=== PATIENT | female | born 1970 | race Caucasian/White ===

== ENCOUNTER 2021-06-27 11:42 | Emergency (ER) | payer OTHER, SELFPAY ==
[2021-06-27 11:57] VITALS: BP 123/70; PULSE 55; RESP 17; TEMP 36.9; O2SAT 97; BMI 34.0
--- NOTE | 2021-06-27 12:35 | XRR_ITS ---
PROCEDURE INFORMATION: Exam: XR Chest Exam date and time: 06/27/2021 12:35 PM Age: 51 years old Clinical indication: Cough and fever; Additional info: Cough, fever TECHNIQUE: Imaging protocol: XR of the chest. Views: 1 view. COMPARISON: CR Chest 1 [place] [id number] 05/27/2018 8:45 PM FINDINGS: Lungs: Unremarkable. No consolidation. Pleural spaces: Unremarkable. No pleural effusion. No pneumothorax. Heart/Mediastinum: Unremarkable. No cardiomegaly. Bones/joints: Metallic sternotomy wires are in place. XR/XR chest 1V portable [id number] IMPRESSION: 1. No acute findings. 2. Status post sternotomy
--- NOTE | 2021-06-27 12:38 | W.ED.COVID ---
HPI - COVID General: Chief Complaint: COVID symptoms Stated Complaint: N/V, UNABLE TASTE Time Seen by Provider: 06/27/21 11:52 Source: patient and RN notes reviewed Mode of arrival: ambulatory Limitations: no limitations Triage information: No fever, cough or shortness of breath. No known COVID + exposure last 14 days History of Present Illness: HPI Narrative: This 51-year-old female presents to the emergency department with complaints of feeling unwell for about 2 to 3 days. She has had a low-grade fever, nausea but no vomiting. Reduced sense of taste. She said she had a sudden onset swelling on the right side of her abdomen that started about 2 days ago also. She said it felt like something popped and the swelling came up. It is painful. She does not have a history of hernia. MD complaint: has COVID symptoms Prior covid testing: no COVID 19 common symptoms: positive fever(s), chills, cough, fatigue, body aches, loss of sense of smell and/or taste and nausea; negative dyspnea, headache(s), throat pain, nasal congestion, vomiting, diarrhea or chest tightness COVID 19 other sytmptoms: negative chest pressure, chest pain, pleuritic pain, requiring oxygen, requiring more oxygen, respiratory distress, cyanosis, lethargy, confusion, new neurological complaints or other concerning symptoms Onset (ago): day(s) (3) Severity: mild COVID Results: SARS-CoV-2 Antigen (Rapid) Negative (Negative) 06/27/21 13:05 06/27/21 Nasal/Oral Coronavirus 2019 PCR Pending 06/27/21 13:05 06/27/21 Review of Systems General: Reports: 10 or more systems reviewed and unremarkable except in HPI and below Const: Reports: fever(s), chills, body aches and fatigue ENMT: Denies: throat pain or nasal congestion Card: Denies: chest pain Resp: Denies: dyspnea GI: Reports: nausea; Denies: vomiting or diarrhea Neuro: Denies: headache(s) or confusion Physical Exam Const: COMMON NORMALS: no acute distress, average body habitus, patient oriented x3, no limitations, healthy appearing, alert and well nourished HENMT: COMMON NORMALS: normocephalic, atraumatic and moist oral mucous membranes HEAD & SCALP: normocephalic and atraumatic Eye: COMMON NORMALS: Equal, round and reactive pupils present, EOMs intact bilaterally, conjunctivae normal and no scleral icterus CONJUNCTIVA: Yes conjunctivae normal PUPIL: Yes Equal, round and reactive pupils present Neck/C-Spine: COMMON NORMALS: no meningeal signs and no JVD Resp: COMMON NORMALS: normal respiratory effort, No retractions, No use of accessory muscles, clear to auscultation bilaterally and percussion normal AUSCULTATION: clear to auscultation bilaterally PERCUSSION: percussion normal Cardio: COMMON NORMALS: no JVD, regular rate, regular rhythm, S1 normal heart sound present, S2 normal heart sound present, No gallops present (Cardio), No clicks present (Cardio), No murmurs present (Cardio), No rub (Cardio) and Peripheral pulses 2+ throughout RATE: regular rate RHYTHM: regular rhythm HEART SOUNDS: S1 normal heart sound present and S2 normal heart sound present PERIPHERAL PULSES: Peripheral pulses 2+ throughout GI: COMMON NORMALS: Normal to inspection, nondistended, normoactive bowel sounds present, Soft to palpation, non-tender, No hepatosplenomegaly present, no masses and no bruits PALPATION: Yes Soft to palpation, Yes No hepatosplenomegaly present and Yes Hernia present (8 cm swelling lateral to her rectus on the right) : EXTERNAL FEMALE EXAM: Yes Hernia present (8 cm swelling lateral to her rectus on the right) Neuro: COMMON NORMALS: patient oriented x3 SENSORIUM/ORIENTATION: Yes alert MENINGEAL SIGNS: Yes no meningeal signs Skin: COMMON NORMALS: no rashes or lesions noted, no wounds, turgor normal, no jaundice, no petechiae and no mottling GENERAL SKIN EXAM: no rashes or lesions noted and turgor normal Course Reevaluation(s): Reevaluation #1: Discussed her lab and imaging findings with her. Negative for acute findings. We will discharge her home with no new orders. Rapid Covid negative, PCR test is pending. She will be contacted with the results of the PCR test. She voiced understanding and is in agreement with the plan. Time: 14:12 Vital Signs: Vital signs: Vital Signs Temperature 98.5 F 06/27/21 11:57 Pulse Rate 55 L 06/27/21 11:57 Respiratory Rate 17 06/27/21 11:57 Blood Pressure 123/70 06/27/21 11:57 Pulse Oximetry 97 06/27/21 13:14 MDM - COVID MDM Narrative: Medical decision making narrative: 51-year-old female patient who presents to the emergency department with nausea vomiting and unable to taste. She also complains of abdominal pain. Evaluation in the emergency department is unremarkable. Rapid Covid test was negative. PCR test is pending. She is discharged home and is advised to quarantine until she gets her Covid results or until 10 days from symptom onset. Medical Records: Attestation: I reviewed the patient's medical records. Lab Data: Attestation: I reviewed the patient's lab results. Labs: Lab Results 06/27/21 06/27/21 06/27/21 Range/Units 13:05 13:05 13:05 WBC 5.6 (4.0-10.0) 10^3/ uL RBC 3.88 L (4.1-5.3) 10^6/u L Hgb 11.8 (11.5-15.3) g/dL Hct 37.5 (37.0-47.0) % MCV 96.6 (81-99) fl MCH 30.4 (28.0-34.0) pg MCHC 31.5 (30.0-36.0) g/dL RDW 14.5 (12.1-15.1) % Plt Count 201 (130-400) 10^3/c mm MPV 11.5 H (7.4-10.4) fL Neut % (Auto) 71.7 % Lymph % (Auto) 20.2 % [place] % (Auto) 5.7 % Eos % (Auto) 1.6 % Baso % (Auto) 0.4 % Neut # (Auto) 4.04 (1.8-7.7) 10^3/u L Lymph # (Auto) 1.1 (0.8-4.8) 10^3/u L [place] # (Auto) 0.3 (0.2-0.9) 10^3/u L Eos # (Auto) 0.1 (0.0-0.8) 10^3/u L Baso # (Auto) 0.0 (0.0-0.1) 10^3/u L Nucleated RBC % (a uto) 0 % Nucleated RBCs # 0.0 /100WBC Sodium 140 (136-145) mmol/L Potassium 4.2 (3.5-5.1) mmol/L Chloride 108 H (98-107) mmol/L Carbon Dioxide 26 (22-29) mmol/L Anion Gap 10.2 (5-19) BUN 13 (6-20) mg/dL Creatinine 0.7 (0.5-0.9) mg/dL GFR Calculation 87.9 L (90-130) mL/min Glucose 103 (65-115) mg/dL Calculated Osmolal ity 290 (285-295) mOsm/k g Lactic Acid 0.7 (0.5-2.2) mmol/L Calcium 8.5 (8.5-10.5) mg/dL Total Bilirubin 0.5 (0.15-1.2) mg/dL AST 18 (0-32) U/L ALT 12 (0-33) U/L Alkaline Phosphata se 74 (35-105) IU/L C-Reactive Protein 30.3 H (0.0-4.9) mg/L Total Protein 6.6 (6.6-8.7) g/dL Albumin 3.6 (3.5-5.2) g/dL Globulin 3.0 (1.3-4.6) g/dL SARS-CoV-2 Ag (Rap id) (Negative) 06/27/21 Range/Units 13:05 WBC (4.0-10.0) 10^3/ uL RBC (4.1-5.3) 10^6/u L Hgb (11.5-15.3) g/dL Hct (37.0-47.0) % MCV (81-99) fl MCH (28.0-34.0) pg MCHC (30.0-36.0) g/dL RDW (12.1-15.1) % Plt Count (130-400) 10^3/c mm MPV (7.4-10.4) fL Neut % (Auto) % Lymph % (Auto) % [place] % (Auto) % Eos % (Auto) % Baso % (Auto) % Neut # (Auto) (1.8-7.7) 10^3/u L Lymph # (Auto) (0.8-4.8) 10^3/u L [place] # (Auto) (0.2-0.9) 10^3/u L Eos # (Auto) (0.0-0.8) 10^3/u L Baso # (Auto) (0.0-0.1) 10^3/u L Nucleated RBC % (a uto) % Nucleated RBCs # /100WBC Sodium (136-145) mmol/L Potassium (3.5-5.1) mmol/L Chloride (98-107) mmol/L Carbon Dioxide (22-29) mmol/L Anion Gap (5-19) BUN (6-20) mg/dL Creatinine (0.5-0.9) mg/dL GFR Calculation (90-130) mL/min Glucose (65-115) mg/dL Calculated Osmolal ity (285-295) mOsm/k g Lactic Acid (0.5-2.2) mmol/L Calcium (8.5-10.5) mg/dL Total Bilirubin (0.15-1.2) mg/dL AST (0-32) U/L ALT (0-33) U/L Alkaline Phosphata se (35-105) IU/L C-Reactive Protein (0.0-4.9) mg/L Total Protein (6.6-8.7) g/dL Albumin (3.5-5.2) g/dL Globulin (1.3-4.6) g/dL SARS-CoV-2 Ag (Rap id) Negative (Negative) Imaging Data: CT Abd/Pel: Attestation: I personally reviewed and interpreted this imaging study as follows: Radiologist's impression: [address] [id number] Scan ReportSigned Patient: Francis Araya #: [id number]: 1970Acct#:[id number]/Sex: 51 / FADM Date: 06/27/21Loc: ERRoom/Bed:Attending Dr: Ordering Provider/Ordering MD: Rachana [place] [facility] of Service: 06/27/21 Procedure(s): CT abdomen pelvis w con* [id number] Accession Number(s): [id number] Report Number: [id number] PROCEDURE INFORMATION: Exam: CT Abdomen And Pelvis With Contrast Exam date and time: 06/27/2021 12:37 PM Age: 51 years old Clinical indication: Other: Right abdominal swelling; Prior surgery TECHNIQUE: Imaging protocol: Computed tomography of the abdomen and pelvis with contrast. Radiation optimization: All CT scans at this facility use at least one of these dose optimization techniques: automated exposure control; mA and/or kV adjustment per patient size (includes targeted exams where dose is matched to clinical indication); or iterative reconstruction. Contrast material: OMNI 300; Contrast volume: 95 ml; Contrast route: INTRAVENOUS (IV); COMPARISON: CT Chest/Abdomen/Pelvis w IV* 05/27/2018 7:58 PM RADIATION DOSE METRICS: Total DLP (mGy-cm): 1683.41 FINDINGS: Liver: Normal. No mass. There is hepatomegaly the liver span is 18 cm Gallbladder and bile ducts: Cholecystectomy Pancreas: Normal. No ductal dilation. Spleen: Normal. No splenomegaly. Adrenal glands: Normal. No mass. 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 Stomach and bowel: Descending and sigmoid colon diverticulosis without diverticulitis. Appendix: No evidence of appendicitis. Appendix: No evidence of appendicitis. Intraperitoneal space: Unremarkable. No free air. No significant fluid collection. Vasculature: Unremarkable. No abdominal aortic aneurysm. Lymph nodes: Unremarkable. No enlarged lymph nodes. Urinary bladder: Unremarkable as visualized. Reproductive: Unremarkable as visualized. 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 Soft tissues: Unremarkable. CT/CT abdomen pelvis w con* [id number] IMPRESSION: 1. No acute findings. 2. Hepatomegaly. 3. Cholecystectomy 4. Descending and sigmoid diverticulosis 5. Left renal angiomyolipoma a cardio Radiation Dose CTDIVOL = (mGy): DLP = 1683.41 (mGy-cm) Dictated By:Juancho Fu By:Juancho Fu Date/Time:06/27/21 1409DD/ 06 CXR: Attestation: I personally reviewed and interpreted this imaging study as follows: Radiologist's impression: [address] [id number] ReportSigned Patient: Francis Araya #: [id number]: 1970Acct#:[id number]/Sex: 51 / FADM Date: 06/27/21Loc: ERRoom/Bed:Attending Dr: Ordering Provider/Ordering MD: Rachana Re[place], [facility] [place] of Service: 06/27/21 Procedure(s): XR chest 1V portable [id number] Accession Number(s): [id number] Report Number: [id number] PROCEDURE INFORMATION: Exam: XR Chest Exam date and time: 06/27/2021 12:35 PM Age: 51 years old Clinical indication: Cough and fever; Additional info: Cough, fever TECHNIQUE: Imaging protocol: XR of the chest. Views: 1 view. COMPARISON: CR Chest 1 [place] [id number] 05/27/2018 8:45 PM FINDINGS: Lungs: Unremarkable. No consolidation. Pleural spaces: Unremarkable. No pleural effusion. No pneumothorax. Heart/Mediastinum: Unremarkable. No cardiomegaly. Bones/joints: Metallic sternotomy wires are in place. XR/XR chest 1V portable [id number] IMPRESSION: 1. No acute findings. 2. Status post sternotomy Dictated By:Juancho Fu By:Juancho Fu Date/Time:06/27/21 1359DD/ 1357 COVID Results: SARS-CoV-2 Antigen (Rapid) Negative (Negative) 06/27/21 13:05 06/27/21 Nasal/Oral Coronavirus 2019 PCR Pending 06/27/21 13:05 06/27/21 Discharge Plan Discharge Patient Disposition: Home Clinical Impression: Suspected severe acute respiratory syndrome coronavirus 2 (SARS-CoV-2) infection Abdominal pain Qualifiers: Abdominal location: unspecified location Qualified Code(s): R10.9 - Unspecified abdominal pain Lipoma Qualifiers: Lipoma location: trunk Qualified Code(s): D17.1 - Benign lipomatous neoplasm of skin and subcutaneous tissue of trunk Condition: Stable Discharge Orders: Discharge ED (Routine); Ordered 06/27/21 Ordered By: Rachana Reeves Discharge Diet: Usual diet Discharge Activity: Increase activity as tolerated Patient Instructions: Lipoma (ED), Abdominal Pain (ED) Activity Restrictions/Additional Instructions: Return for any new or worsening symptoms. Follow-up with your primary care provider within 3 days. Continue your home medications. You will be contacted with the results of the PCR Covid test when he comes back in a few days. Until then you need to self isolate for at least 10 days from symptoms onset. Coding Level of Care Code ED Outpatient Admitting Clerk for Jimmy Fwd Exam Comprehensive
[2021-06-27 13:14] VITALS: O2SAT 97
[2021-06-27] MEDS: iohexol 300 mg/mL 100 mL Btl IV (13:18)
[2021-06-27 13:21] LABS: Basophils % 0.4 %; Eosinophils # 0.1 10^3/uL (0.0-0.8); Eosinophils % 1.6 %; Hematocrit 37.5 % (37.0-47.0); Hemoglobin 11.8 g/dL (11.5-15.3); Lymphocytes # 1.1 10^3/uL (0.8-4.8); Lymphocytes % 20.2 %; Mean Corpuscular HGB Conc 31.5 g/dL (30.0-36.0); Mean Corpuscular Hemoglobin 30.4 pg (28.0-34.0); Mean Corpuscular Volume 96.6 fl (81-99); Mean Platelet Volume 11.5 fL (7.4-10.4); Monocytes # 0.3 10^3/uL (0.2-0.9); Monocytes % 5.7 %; Neutrophils # 4.04 10^3/uL (1.8-7.7); Neutrophils % 71.7 %; Nucleated Red Blood Cells % 0 %; Platelet Count 201 10^3/cmm (130-400); Red Blood Count 3.88 10^6/uL (4.1-5.3); Red Cell Distribution Width 14.5 % (12.1-15.1); White Blood Count 5.6 10^3/uL (4.0-10.0)
[2021-06-27 13:49] LABS: SARS Covid-2 Antigen Negative (Negative)
[2021-06-27] MEDS: ketorolac 30 mg/mL INJ IVP (13:53)
[2021-06-27] MEDS: ondansetron 2 mg/ML SDV 2 mL 4 MG IVP (13:53)
[2021-06-27 13:57] LABS: Alanine Aminotransferase 12 U/L (0-33); Albumin Level 3.6 g/dL (3.5-5.2); Alkaline Phosphatase 74 IU/L (35-105); Aspartate Amino Transferase 18 U/L (0-32); Blood Urea Nitrogen 13 mg/dL (6-20); C Reactive Protein 30.3 mg/L (0.0-4.9); Calcium 8.5 mg/dL (8.5-10.5); Carbon Dioxide 26 mmol/L (22-29); Chloride 108 mmol/L (98-107); Glomerular Filtration Rate 87.9 mL/min (90-130); Glucose 103 mg/dL (65-115); Lactic Sepsis W/Reflex 0.7 mmol/L (0.5-2.2); Osmolality Calculated 290 mOsm/kg (285-295); Sodium 140 mmol/L (136-145); Total Bilirubin 0.5 mg/dL (0.15-1.2); Total Protein 6.6 g/dL (6.6-8.7)
[2021-06-27 14:02] LABS: Anion Gap 10.2 (5-19); Potassium 4.2 mmol/L (3.5-5.1)
[2021-06-28 14:55] LABS: Coronavirus Test Green County Not Detected
--- NOTE | 2021-06-28 18:00 | PC.NURSE ---
Patient notified of covid results at this time
== END 2021-06-27 14:28 | disposition home or self-care (01) ==
PROVIDERS: Emergency Provider Family Medicine
DX: D17.1 Benign lipomatous neoplasm of skin and subcutaneous tissue of trunk (principal); Z20.822 Contact with and (suspected) exposure to COVID-19
CPT/HCPCS: 71045; 74177; 80053; 83605; 85025; 86140; 87426; 87635; 96374; 96375; 99283; J1885; J2405; Q9967

== ENCOUNTER 2021-09-21 13:18 | Emergency (ER) | payer OTHER, SELFPAY ==
[2021-09-21] VITALS (8 sets, daily range): BP systolic 149–168; BP diastolic 60–92; PULSE 47–54; RESP 14–18; TEMP 36.4–36.7; O2SAT 98–100; BMI 34.0
--- NOTE | 2021-09-21 14:31 | ED_ITS ---
Documented by User: ROX Patel 09/21/21 16:58 HPI - Female Genitourinary General: Chief complaint: Urogenital-Female Stated complaint: TROUBLE URINATING,ABD & BACK PAIN Time Seen by Provider: 09/21/21 14:22 Source: patient Mode of arrival: ambulatory Limitations: no limitations History of Present Illness: HPI Narrative: Patient is a nice 51-year-old female who presents to ED today with a complaint of left-sided flank pain and abdominal pain that initially began about a week ago. Patient has an extensive history of kidney and ureter lithiasis. She states over the past week she has passed two small stones but feels she has one stuck . She has noticed darker than normal urine which she has seen with previous stones. She is not compla ining of dysuria, frequency, urgency. She has not been running fevers. Complains of mild nausea without emesis. Patient has not originally from the area and had a urologist back home. She states she has had several ureter stents placed previously. MD elicited complaint: flank pain Pertinent past history: other (kidney/ureter stones) Onset (ago): day(s) Severity: moderate Quality of pain: sharp Consistency: constant Vaginal discharge: none Vaginal bleeding: none Relieving factors: none Associated symptoms: Reports abdominal pain and nausea; Deny headache(s) Treatment prior to arrival: none Review of Systems Const: Denies: fever(s), chills, body aches, fatigue or malaise Card: Denies: chest pain Resp: Denies: dyspnea GI: Reports: abdominal pain and nausea; Denies: vomiting or diarrhea : Reports: flank pain and hematuria; Denies: difficulty voiding, dysuria, urinary frequency, urinary urgency, urinary hesitancy, dribbling or urinary incontinence Musc: Reports: back pain (L flank); Denies: neck pain, extremity pain, extremity swelling, joint pain or joint swelling Skin/Breast: Denies: rash Neuro: Denies: headache(s), numbness in extremities, weakness in extremities, sensory changes or dizziness Physical Exam Const: COMMON NORMALS: no acute distress, average body habitus, patient oriented x3, no limitations, healthy appearing, alert and well nourished GENERAL APPEARANCE: cooperative ORIENTATION/CONSCIOUSNESS: Yes awake, Yes oriented to person, Yes oriented to place and Yes oriented to time HENMT: COMMON NORMALS: normocephalic and atraumatic HEAD & SCALP: normocephalic and atraumatic Resp: COMMON NORMALS: normal respiratory effort and clear to auscultation bilaterally AUSCULTATION: clear to auscultation bilaterally Cardio: COMMON NORMALS: regular rhythm RATE: bradycardic (states this is chronic for her) RHYTHM: regular rhythm GI: COMMON NORMALS: Normal to inspection, nondistended, normoactive bowel sounds present, Soft to palpation, No hepatosplenomegaly present and no masses PALPATION: Yes Soft to palpation, Yes Tenderness to palpation present (GI) (mild tenderness to L lateral/lower abdomen) and Yes No hepatosplenomegaly present : BLADDER/KIDNEY EXAM: Yes CVA tenderness on the left Back/Pelvis: COMMON NORMALS: thoracic and lumbar spine normal to inspection, no thoracic nor lumbar tenderness and thoraco-lumbar ROM normal GENERAL BACK: Yes CVA tenderness Extremity: COMMON NORMALS: normal to inspection GENERAL: Yes normal exam except as noted Neuro: COMMON NORMALS: patient oriented x3 SENSORIUM/ORIENTATION: Yes alert, Yes oriented to person, Yes oriented to place and Yes oriented to time Skin: COMMON NORMALS: no rashes or lesions noted GENERAL SKIN EXAM: no rashes or lesions noted Course Vital Signs: Vital signs: Vital Signs Temperature 98.1 F 09/21/21 17:17 Pulse Rate 49 L 09/21/21 17:37 Respiratory Rate 17 09/21/21 17:37 Blood Pressure 156/60 09/21/21 17:37 Pulse Oximetry 100 09/21/21 17:37 MDM - Female MDM Narrative: Medical decision making narrative: Patient here with complaints of left flank pain and left lateral lower abdomen pain. Vital signs are stable. Patient chronically has bradycardia. Blood work is unremarkable. Clean catch UA contaminated with 10-15 squamous cells and showing 2+ leuks, 25-40 WBC, 3+ bacteria. Repeat cath specimen obtained showing 0-4 squamous cells, 1+ leuks, 0-4 WBCs, and trace bacteria therefore think infection can be ruled out at this point. CT scan showing a bilobed calcification possibly to her UVJ but also could be embedded in the wall of the bladder. There is no significant obstruction. Patient feels like her pain can be managed at home. We will get her set up with Dr. Benton for further evaluation. Strict return to ED precautions given. Lab Data: Labs: Lab Results 09/21/21 09/21/21 09/21/21 14:20 14:45 14:45 WBC 6.9 10^3/uL 10^3/ uL (4.0-10.0) RBC 4.31 10^6/uL 10^6 /uL (4.1-5.3) Hgb 13.5 g/dL g/dL (11.5-15.3) Hct 41.3 % % (37.0-47.0) MCV 95.8 fl fl (81-99) MCH 31.3 pg pg (28.0-34.0) MCHC 32.7 g/dL g/dL (30.0-36.0) RDW 13.2 % % (12.1-15.1) Plt Count 210 10^3/cmm 10^3 /cmm (130-400) MPV 11.0 fL H fL (7.4-10.4) Neut % (Auto) 62.9 % % Lymph % (Auto) 29.8 % % [place] % (Auto) 5.5 % % Eos % (Auto) 0.9 % % Baso % (Auto) 0.6 % % Neut # (Auto) 4.32 10^3/uL 10^3 /uL (1.8-7.7) Lymph # (Auto) 2.1 10^3/uL 10^3/ uL (0.8-4.8) [place] # (Auto) 0.4 10^3/uL 10^3/ uL (0.2-0.9) Eos # (Auto) 0.1 10^3/uL 10^3/ uL (0.0-0.8) Baso # (Auto) 0.0 10^3/uL 10^3/ uL (0.0-0.1) Nucleated RBC % (a uto) 0 % % Nucleated RBCs # 0.0 /100WBC /100W BC Sodium 139 mmol/L mmol/L (136-145) Potassium 4.5 mmol/L mmol/L (3.5-5.1) Chloride 104 mmol/L mmol/L (98-107) Carbon Dioxide 25 mmol/L mmol/L (22-29) Anion Gap 14.5 (5-19) BUN 13 mg/dL mg/dL (6-20) Creatinine 0.7 mg/dL mg/dL (0.5-0.9) GFR Calculation 87.9 mL/min L mL/ min (90-130) Glucose 89 mg/dL mg/dL (65-115) Calculated Osmolal ity 288 mOsm/kg mOsm/ kg (285-295) Calcium 8.9 mg/dL mg/dL (8.5-10.5) Total Bilirubin 0.4 mg/dL mg/dL (0.15-1.2) AST 13 U/L U/L (0-32) ALT 9 U/L U/L (0-33) Alkaline Phosphata se 80 IU/L IU/L (35-105) Total Protein 7.4 g/dL g/dL (6.6-8.7) Albumin 4.2 g/dL g/dL (3.5-5.2) Globulin 3.2 g/dL g/dL (1.3-4.6) Urine Color Straw (Yellow) Urine Appearance Hazy A (CLEAR) Urine pH 6 (5-7) Ur Specific Gravit y 1.010 (1.005-1.030) Urine Protein Neg (Negative) Urine Glucose (UA) Norm (Normal) Urine Ketones Negative (Negative) Urine Blood 3+ H (Negative) Urine Nitrate Negative (Negative) Urine Bilirubin Neg (Negative) Urine Urobilinogen Norm mg/dL mg/dL (Negative) Ur Leukocyte Anna ase 1+ H (Negative) Ur Microscopic Ind ic Urine RBC 25-40 /hpf H /hpf (0-2) Urine WBC 25-40 /hpf H /hpf (0-5) Ur Squamous Epith Cells 10-15 /hpf H /hpf (0-5) Amorphous Sediment Not Reportable Urine Bacteria 3+ /hpf H /hpf (NONE) 09/21/21 16:00 WBC RBC Hgb Hct MCV MCH MCHC RDW Plt Count MPV Neut % (Auto) Lymph % (Auto) [place] % (Auto) Eos % (Auto) Baso % (Auto) Neut # (Auto) Lymph # (Auto) [place] # (Auto) Eos # (Auto) Baso # (Auto) Nucleated RBC % (a uto) Nucleated RBCs # Sodium Potassium Chloride Carbon Dioxide Anion Gap BUN Creatinine GFR Calculation Glucose Calculated Osmolal ity Calcium Total Bilirubin AST ALT Alkaline Phosphata se Total Protein Albumin Globulin Urine Color Yellow (Yellow) Urine Appearance Clear (CLEAR) Urine pH 6 (5-7) Ur Specific Gravit y 1.005 (1.005-1.030) Urine Protein Neg (Negative) Urine Glucose (UA) Norm (Normal) Urine Ketones Negative (Negative) Urine Blood 2+ H (Negative) Urine Nitrate Negative (Negative) Urine Bilirubin Neg (Negative) Urine Urobilinogen Norm mg/dL mg/dL (Negative) Ur Leukocyte Anna ase 1+ H (Negative) Ur Microscopic Ind ic Cancelled Urine RBC 10-15 /hpf H /hpf (0-2) Urine WBC 0-4 /hpf H /hpf (0-5) Ur Squamous Epith Cells 0-4 /hpf H /hpf (0-5) Amorphous Sediment Not Reportable Urine Bacteria Trace /hpf /hpf (NONE) Imaging Data: CT renal: Radiologist's impression: [address] [id number] Scan ReportSigned Patient: Francis Araya #: [id number]: 1970Acct#:[id number]/Sex: 51 / FADM Date: 09/21/21Loc: ERRoom/Bed:Attending Dr: Ordering Provider/Ordering MD: Meron Diez Date of Service: 09/21/21 Procedure(s): CT kidney stone [id number] Accession Number(s): [id number] Report Number: [id number] WS: [id number] CT ABDOMEN AND PELVIS NONCONTRAST HISTORY: L flank/abdominal pain; hx kidney/ureter stones TECHNIQUE: Imaging performed through the abdomen and pelvis. Coronal and sagittal reformats are submitted. [facility] at [facility] one of these dose optimization techniques: automated exposure control; mA and/or kV adjustment per patient size (includes targeted exams where dose is matched to clinical indication); or iterative reconstruction. DLP: 1808.34 mGy.cm COMPARISON: 06/27/2021 Lower thorax: Benign partially calcified granuloma medial LEFT lower lobe. Moderate enlargement the heart. Small hiatal hernia. Liver: Normal size liver. No mass or bile duct dilatation. Gallbladder: Prior cholecystectomy. Pancreas: Normal size and attenuation. Normal pancreatic duct. No pancreatitis or mass. Spleen: Scattered granulomata. Normal size. Adrenal glands: Normal. No mass. Right kidney: Normal size kidney with no mass or hydronephrosis. Left kidney: Nonobstructing small calcifications within the renal pelvis measu ring up to 3 mm. There is very slight dilatation of the LEFT ureter as compared to the RIGHT. There is a bilobed calcification in the LEFT urinary bladder. This may be in the LEFT UV junction or extruded into the bladder. This calcification was also present on the examination of 06/27/2021. This potentially could be a wall calcification. Aorta: Normal abdominal aorta, no aneurysm or atherosclerosis. No free fluid, intraperitoneal air or significant lymphadenopathy. GI tract: Mild diffuse constipation. The appendix is been removed. Abdominal wall: Negative. No hernia. Pelvis: Well-distended urinary bladder. Osseous structures: Unremarkable. CT/CT kidney stone [id number] IMPRESSION: 1. No renal obstruction. 2. Bilobed calcification projects into the LEFT posterior lateral urinary bladder. This may be from the distal ureter or embedded in the wall of the bladder. This calcification was present on 06/27/2021. There is no significant obstruction of the LEFT ureter. 3. Prior cholecystectomy and appendectomy. 4. Diffuse constipation. Dictated By:Venita Arndt DOSigned By:Venita Arndt DOSigned Date/Time:09/21/21 1513DD/ 1506 Discharge Plan Discharge Patient Disposition: Home Clinical Impression: Calculus of distal left ureter Condition: Stable Prescriptions: New hydrocodone-acetaminophen 5-325 mg tablet 1 tab PO Q6H PRN (Reason: pain) Qty: 20 RF: 0 Zofran 4 mg tablet 4 mg PO Q6H PRN (Reason: nausea and vomiting) Qty: 14 RF: 0 Flomax 0.4 mg capsule 0.4 mg PO DAILY Qty: 10 RF: 0 Discharge Orders: Discharge ED (Routine); Ordered 09/21/21 Ordered By: Meron Diez Referrals: Rd Benton MD [Physician] - Patient Instructions: Opioid Safety Activity Restrictions/Additional Instructions: [facility] is committed to fighting the nationwide opiate epidemic. We are providing ALL patients with information regarding opiate safety. If you received opiate pain medication during your stay or if you received a prescription for opiate pain medication-please review this handout. If not, you may disregard. Thank you. As we discussed case management should contact you shortly to set you up with your follow-up appointment with urology/Dr. Benton's office. You need to return to the ED for worsening or uncontrollable pain, repetitive episodes of vomiting, fevers of greater than 100.4, painful or odorous urine, inability to urinate, or any other concerns you may have. Hope you begin to feel better soon . Coding Level of Care Code ED Public Transportation Inspector for Chg Fwd Exam Comprehensive Documented by User: Cedric Maier DO 09/24/21 06:57 HPI - Female Genitourinary General: Chief complaint: Urogenital-Female Stated complaint: TROUBLE URINATING,ABD & BACK PAIN Time Seen by Provider: 09/21/21 14:22 Course Vital Signs: Vital signs: Vital Signs Temperature 98.1 F 09/21/21 17:17 Pulse Rate 49 L 09/21/21 17:37 Respiratory Rate 17 09/21/21 17:37 Blood Pressure 156/60 09/21/21 17:37 Pulse Oximetry 100 09/21/21 17:37 MDM - Female MDM Narrative: Medical decision making narrative: Chart reviewed and patient discussed with midlevel. Agree with assessment and plan. Lab Data: Labs: Lab Results 09/21/21 09/21/21 09/21/21 14:20 14:45 14:45 WBC 6.9 10^3/uL 10^3/ uL (4.0-10.0) RBC 4.31 10^6/uL 10^6 /uL (4.1-5.3) Hgb 13.5 g/dL g/dL (11.5-15.3) Hct 41.3 % % (37.0-47.0) MCV 95.8 fl fl (81-99) MCH 31.3 pg pg (28.0-34.0) MCHC 32.7 g/dL g/dL (30.0-36.0) RDW 13.2 % % (12.1-15.1) Plt Count 210 10^3/cmm 10^3 /cmm (130-400) MPV 11.0 fL H fL (7.4-10.4) Neut % (Auto) 62.9 % % Lymph % (Auto) 29.8 % % [place] % (Auto) 5.5 % % Eos % (Auto) 0.9 % % Baso % (Auto) 0.6 % % Neut # (Auto) 4.32 10^3/uL 10^3 /uL (1.8-7.7) Lymph # (Auto) 2.1 10^3/uL 10^3/ uL (0.8-4.8) [place] # (Auto) 0.4 10^3/uL 10^3/ uL (0.2-0.9) Eos # (Auto) 0.1 10^3/uL 10^3/ uL (0.0-0.8) Baso # (Auto) 0.0 10^3/uL 10^3/ uL (0.0-0.1) Nucleated RBC % (a uto) 0 % % Nucleated RBCs # 0.0 /100WBC /100W BC Sodium 139 mmol/L mmol/L (136-145) Potassium 4.5 mmol/L mmol/L (3.5-5.1) Chloride 104 mmol/L mmol/L (98-107) Carbon Dioxide 25 mmol/L mmol/L (22-29) Anion Gap 14.5 (5-19) BUN 13 mg/dL mg/dL (6-20) Creatinine 0.7 mg/dL mg/dL (0.5-0.9) GFR Calculation 87.9 mL/min L mL/ min (90-130) Glucose 89 mg/dL mg/dL (65-115) Calculated Osmolal ity 288 mOsm/kg mOsm/ kg (285-295) Calcium 8.9 mg/dL mg/dL (8.5-10.5) Total Bilirubin 0.4 mg/dL mg/dL (0.15-1.2) AST 13 U/L U/L (0-32) ALT 9 U/L U/L (0-33) Alkaline Phosphata se 80 IU/L IU/L (35-105) Total Protein 7.4 g/dL g/dL (6.6-8.7) Albumin 4.2 g/dL g/dL (3.5-5.2) Globulin 3.2 g/dL g/dL (1.3-4.6) Urine Color Straw (Yellow) Urine Appearance Hazy A (CLEAR) Urine pH 6 (5-7) Ur Specific Gravit y 1.010 (1.005-1.030) Urine Protein Neg (Negative) Urine Glucose (UA) Norm (Normal) Urine Ketones Negative (Negative) Urine Blood 3+ H (Negative) Urine Nitrate Negative (Negative) Urine Bilirubin Neg (Negative) Urine Urobilinogen Norm mg/dL mg/dL (Negative) Ur Leukocyte Anna ase 1+ H (Negative) Ur Microscopic Ind ic Urine RBC 25-40 /hpf H /hpf (0-2) Urine WBC 25-40 /hpf H /hpf (0-5) Ur Squamous Epith Cells 10-15 /hpf H /hpf (0-5) Amorphous Sediment Not Reportable Urine Bacteria 3+ /hpf H /hpf (NONE) 09/21/21 16:00 WBC RBC Hgb Hct MCV MCH MCHC RDW Plt Count MPV Neut % (Auto) Lymph % (Auto) [place] % (Auto) Eos % (Auto) Baso % (Auto) Neut # (Auto) Lymph # (Auto) [place] # (Auto) Eos # (Auto) Baso # (Auto) Nucleated RBC % (a uto) Nucleated RBCs # Sodium Potassium Chloride Carbon Dioxide Anion Gap BUN Creatinine GFR Calculation Glucose Calculated Osmolal ity Calcium Total Bilirubin AST ALT Alkaline Phosphata se Total Protein Albumin Globulin Urine Color Yellow (Yellow) Urine Appearance Clear (CLEAR) Urine pH 6 (5-7) Ur Specific Gravit y 1.005 (1.005-1.030) Urine Protein Neg (Negative) Urine Glucose (UA) Norm (Normal) Urine Ketones Negative (Negative) Urine Blood 2+ H (Negative) Urine Nitrate Negative (Negative) Urine Bilirubin Neg (Negative) Urine Urobilinogen Norm mg/dL mg/dL (Negative) Ur Leukocyte Anna ase 1+ H (Negative) Ur Microscopic Ind ic Cancelled Urine RBC 10-15 /hpf H /hpf (0-2) Urine WBC 0-4 /hpf H /hpf (0-5) Ur Squamous Epith Cells 0-4 /hpf H /hpf (0-5) Amorphous Sediment Not Reportable Urine Bacteria Trace /hpf /hpf (NONE) Discharge Plan Discharge Patient Disposition: Home Clinical Impression: Calculus of distal left ureter Condition: Stable Prescriptions: New hydrocodone-acetaminophen 5-325 mg tablet 1 tab PO Q6H PRN (Reason: pain) Qty: 20 RF: 0 Zofran 4 mg tablet 4 mg PO Q6H PRN (Reason: nausea and vomiting) Qty: 14 RF: 0 Flomax 0.4 mg capsule 0.4 mg PO DAILY Qty: 10 RF: 0 Discharge Orders: Discharge ED (Routine); Ordered 09/21/21 Ordered By: Meron Diez Referrals: Rd Benton MD [Physician] - Patient Instructions: Opioid Safety Activity Restrictions/Additional Instructions: [facility] is committed to fighting the nationwide opiate epidemic. We are providing ALL patients with information regarding opiate safety. If you received opiate pain medication during your stay or if you received a prescription for opiate pain medication-please review this handout. If not, you may disregard. Thank you. As we discussed case management should contact you shortly to set you up with your follow-up appointment with urology/Dr. Benton's office. You need to return to the ED for worsening or uncontrollable pain, repetitive episodes of vomiting, fevers of greater than 100.4, painful or odorous urine, inability to urinate, or any other concerns you may have. Hope you begin to feel better soon. Coding Level of Care Code ED Public Transportation Inspector for Jimmy Fwd Exam Comprehensive
--- NOTE | 2021-09-21 14:32 | CT_ITS ---
WS: [id number] CT ABDOMEN AND PELVIS NONCONTRAST HISTORY: L flank/abdominal pain; hx kidney/ureter stones TECHNIQUE: Imaging performed through the abdomen and pelvis. Coronal and sagittal reformats are submi tted. All CT scans at [facility] use at least one of these dose optimization techniques: auto mated exposure control; mA and/or kV adjustment per patient size (includes targeted exams where dose is matched to clinical indication); or iterative reconstruction. DLP: 1808.34 mGy.cm COMPARISON: 06/27/2021 Lower thorax: Benign partially calcified granuloma medial LEFT lower lobe. Moderate enlargement the h eart. Small hiatal hernia. Liver: Normal size liver. No mass or bile duct dilatation. Gallbladder: Prior cholecystectomy. Pancreas: Normal size and attenuation. Normal pancreatic duct. No pancreatitis or mass. Spleen: Scattered granulomata. Normal size. Adrenal glands: Normal. No mass. Right kidney: Normal size kidney with no mass or hydronephrosis. Left kidney: Nonobstructing small calcifications within the renal pelvis measuring up to 3 mm. There is very slight dilatation of the LEFT ureter as compared to the RIGHT. There is a bilobed calcificati on in the LEFT urinary bladder. This may be in the LEFT UV junction or extruded into the bladder. Thi s calcification was also present on the examination of 06/27/2021. This potentially could be a wall ca lcification. Aorta: Normal abdominal aorta, no aneurysm or atherosclerosis. No free fluid, intraperitoneal air or significant lymphadenopathy. GI tract: Mild diffuse constipation. The appendix is been removed. Abdominal wall: Negative. No hernia. Pelvis: Well-distended urinary bladder. Osseous structures: Unremarkable. CT/CT kidney stone [id number] IMPRESSION: 1. No renal obstruction. 2. Bilobed calcification projects into the LEFT posterior lateral urinary blad radha. This may be from the distal ureter or embedded in the wall of the bladder. This calcification was present on 06/27/2021. There is no significant obstructi on of the LEFT ureter. 3. Prior cholecystectomy and appendectomy. 4. Diffuse constipation.
[2021-09-21] MEDS: sodium chloride 0.9% 1,000 ML 999 ML IV (14:58)
[2021-09-21] MEDS: ondansetron 2 mg/ML SDV 2 mL 4 MG IVP (14:59)
[2021-09-21 15:00] LABS: Add Urine Microscopic? YES; Bilirubin Urine Neg (Negative); Blood Urine 3+ (Negative); Glucose Urine UA Norm (Normal); Ketones Urine Negative (Negative); Leukocyte Esterase Urine 1+ (Negative); Nitrate Urine Negative (Negative); Protein Urine Neg (Negative); Urine Appearance Hazy (CLEAR); Urine Color Straw (Yellow); Urobilinogen Urine Norm (Negative); pH Urine 6 (5-7)
[2021-09-21 15:00] LABS: Basophils % 0.6 %; Eosinophils # 0.1 10^3/uL (0.0-0.8); Eosinophils % 0.9 %; Hematocrit 41.3 % (37.0-47.0); Hemoglobin 13.5 g/dL (11.5-15.3); Lymphocytes # 2.1 10^3/uL (0.8-4.8); Lymphocytes % 29.8 %; Mean Corpuscular HGB Conc 32.7 g/dL (30.0-36.0); Mean Corpuscular Hemoglobin 31.3 pg (28.0-34.0); Mean Corpuscular Volume 95.8 fl (81-99); Monocytes # 0.4 10^3/uL (0.2-0.9); Monocytes % 5.5 %; Neutrophils # 4.32 10^3/uL (1.8-7.7); Neutrophils % 62.9 %; Nucleated Red Blood Cells % 0 %; Platelet Count 210 10^3/cmm (130-400); Red Blood Count 4.31 10^6/uL (4.1-5.3); Red Cell Distribution Width 13.2 % (12.1-15.1); White Blood Count 6.9 10^3/uL (4.0-10.0)
[2021-09-21] MEDS: morphine 4 mg/mL SDV 1 mL IVP ×2 (15:00→17:19)
[2021-09-21 15:08] LABS: Add Urine Culture? No; Bacteria Urine 3+ /hpf; RBC Urine 25-40 /hpf (0-2); WBC Urine 25-40 /hpf (0-5)
[2021-09-21 15:19] LABS: Alanine Aminotransferase 9 U/L (0-33); Albumin Level 4.2 g/dL (3.5-5.2); Alkaline Phosphatase 80 IU/L (35-105); Anion Gap 14.5 (5-19); Aspartate Amino Transferase 13 U/L (0-32); Blood Urea Nitrogen 13 mg/dL (6-20); Calcium 8.9 mg/dL (8.5-10.5); Carbon Dioxide 25 mmol/L (22-29); Chloride 104 mmol/L (98-107); Globulin 3.2 g/dL (1.3-4.6); Glomerular Filtration Rate 87.9 mL/min (90-130); Glucose 89 mg/dL (65-115); Osmolality Calculated 288 mOsm/kg (285-295); Potassium 4.5 mmol/L (3.5-5.1); Sodium 139 mmol/L (136-145); Total Bilirubin 0.4 mg/dL (0.15-1.2); Total Protein 7.4 g/dL (6.6-8.7)
[2021-09-21] MEDS: ketorolac 30 mg/mL INJ IVP (16:25)
[2021-09-21 16:47] LABS: Urine Appearance Clear (CLEAR); Urine Color Yellow (Yellow)
[2021-09-21 16:48] LABS: Bilirubin Urine Neg (Negative); Blood Urine 2+ (Negative); Glucose Urine UA Norm (Normal); Ketones Urine Negative (Negative); Leukocyte Esterase Urine 1+ (Negative); Nitrate Urine Negative (Negative); Protein Urine Neg (Negative); Specific Gravity, Urine 1.005 (1.005-1.030); Urobilinogen Urine Norm (Negative); pH Urine 6 (5-7)
[2021-09-21 16:54] LABS: Add Urine Culture? No; Bacteria Urine TRACE /hpf; Squamous Epithelial Cell Urine 0-4 /hpf (0-5); WBC Urine 0-4 /hpf (0-5)
--- NOTE | 2021-09-22 10:41 | DCPLANNER ---
fish hatchery manager had message to schedule a follow up appointment for patient with Dr. Benton. fish hatchery manager emailed patients information to Les Shah and Julie at the office of Dr. eBnton. Patients information will be printed and reviewed. Clinic will call patient with appointment information.
--- NOTE | 2021-10-14 07:40 | DCPLANNER ---
transitions manager contacted the office of Dr. Benton about followup appointment. transitions manager was told that clinic was unable to reach patient to schedule a follow up appointment.
== END 2021-09-21 17:38 | disposition home or self-care (01) ==
PROVIDERS: Emergency Provider Physician Assistant
DX: N20.1 Calculus of ureter (principal)
CPT/HCPCS: 74176; 80053; 81001; 85025; 96361; 96374; 96375; 96376; 99284; J1885; J2270; J2405; J7030

== ENCOUNTER 2022-04-10 14:37 | Inpatient (IN) | payer OTHER, SELFPAY ==
[2022-04-10] VITALS (48 sets, daily range): BP systolic 72–137; BP diastolic 45–93; PULSE 72–118; RESP 9–32; TEMP 36.6–36.7; O2SAT 91–100; BMI 34.0
--- NOTE | 2022-04-10 15:03 | ECG_ITS ---
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 Measurements Intervals [place] Rate: 116 P: ME: QRS: 76 QRSD: 88 T: 0 QT: 134 QTc: 186 Interpretive Statements ATRIAL FLUTTER/TACHYCARDIA WITH RAPID VENTRICULAR RESPONSE POSSIBLE RIGHT VENTRICULAR CONDUCTION DELAY [RSR (QR) IN V1/V2] NONSPECIFIC ST & T-WAVE ABNORMALITY ABNORMAL RHYTHM ECG Compared to ECG 05/27/2018 20:22:04 Sinus rhythm no longer present Ventricular premature complex(es) no longer present Possible ischemia no longer present T-wave abnormality still present Electronically Signed On 04-10-2022 21:13:56 CDT by Michael Fletcher M.D. [id number]
--- NOTE | 2022-04-10 15:08 | XRR_ITS ---
PROCEDURE INFORMATION: Exam: XR Chest Exam date and time: 04/10/2022 3:40 PM Age: 51 years old Clinical indication: Cough and dyspnea; Prior surgery; Surgery type: Pacer; Additional info: Dyspnea/cough TECHNIQUE: Imaging protocol: XR of the chest. Views: 1 view. COMPARISON: CR XR chest 1V portable [id number] 06/27/2021 1:06 PM FINDINGS: Lungs: Unremarkable. No consolidation. Pleural spaces: Unremarkable. No pleural effusion. No pneumothorax. Heart/Mediastinum: Borderline cardiomegaly. Sternotomy wires noted. Two lead pacer device noted in the right chest wall. Bones/joints: Visualized osseous structures are intact. XR/XR chest 1V portable [id number] IMPRESSION: No acute findings.
--- NOTE | 2022-04-10 15:09 | W.ED.ARRPALP ---
HPI - Arrhythmia/Palpitations General: Chief Complaint: Arrhythmia/Palpitations Stated Complaint: chest pain Time Seen by Provider: 04/10/22 14:57 Source: patient Mode of arrival: ambulatory Limitations: no limitations History of Present Illness: 51-year-old female presents emergency room with complaint of rapid heart rates chest discomfort. She has a history of previous ASD as well as heart block. ASD was repaired by surgery. She is not on any anticoagulants. Last several days she has noticed intermittent rapid heart rate some shortness of breath and mild chest discomfort. Patient states she has no known history of atrial fibrillation. MD complaint: rapid heart beat, heart racing , skipped beats , palpitations and irregular heart beat Onset (ago): hour(s) Duration: constant Severity: moderate Context: occurred during exertion Associated symptoms: Deny anxiety, cough, diaphoresis, muscle cramps, nausea, paresthesias, pre-syncope, sense of impending doom, short of breath, syncope or vomiting Review of Systems Const: Denies: fever(s), chills or diaphoresis ENMT: Denies: throat pain, ear or mastoid pain, nasal discharge or nasal congestion Card: Denies: chest pain, palpitations, irregular heart rhythm, edema, syncope or pre-syncope Resp: Denies: dyspnea, productive cough or non-productive cough GI: Denies: abdominal pain, nausea or vomiting : Denies: flank pain, difficulty voiding, dysuria, urinary frequency or urinary urgency Musc: Denies: muscle cramps Skin/Breast: Denies: rash or pruritus Psych: Denies: anxiety [facility] PFSH: Medical History ASD (atrial septal defect) Atrial fibrillation/flutter Nephrolithiasis Pacemaker Physical Exam Const: GENERAL APPEARANCE: cooperative and comfortable ORIENTATION/CONSCIOUSNESS: Yes awake, Yes oriented to person, Yes oriented to place and Yes oriented to time HENMT: COMMON NORMALS: normocephalic and atraumatic HEAD & SCALP: normocephalic and atraumatic Resp: COMMON NORMALS: normal respiratory effort, No retractions, No use of accessory muscles and clear to auscultation bilaterally AUSCULTATION: clear to auscultation bilaterally Cardio: RATE: tachycardic RHYTHM: abnormal rhythm irregularly irregular GI: COMMON NORMALS: Soft to palpation and No hepatosplenomegaly present AUSCULTATION: Yes normoactive bowel sounds PALPATION: Yes Soft to palpation, No Tenderness to palpation present (GI), No Guarding due to palpation present (GI) and Yes No hepatosplenomegaly present Extremity: COMMON NORMALS: normal to inspection, capillary refill normal, no clubbing, cyanosis or edema, no calf tenderness and no pedal edema Neuro: SENSORIUM/ORIENTATION: Yes oriented to person, Yes oriented to place and Yes oriented to time Skin: COMMON NORMALS: no rashes or lesions noted GENERAL SKIN EXAM: no rashes or lesions noted Course Vital Signs: Vital signs: Vital Signs Temperature 98.2 F 04/13/22 04:30 Pulse Rate 73 04/13/22 16:00 Respiratory Rate 17 04/13/22 16:00 Blood Pressure 106/71 04/13/22 16:00 Pulse Oximetry 96 04/12/22 12:30 MDM - Arrhythmia/Palpitations Medical Decision Making A. fib flutter started on esmolol drip rate controlled discussed with hospitalist orders written serial enzymes are in progress. Medical Records I reviewed the patient's medical records. Lab Data I reviewed the patient's lab results. : 04/13/22 07:36 04/13/22 07:36 Radiology Impressions Chest X-Ray 04/10/22 15:08 IMPRESSION: No acute findings. Laboratory Results WBC 5.0 10^3/uL (4.0-10.0) 04/10/22 15:15 RBC 4.29 10^6/uL (4.1-5.3) 04/10/22 15:15 Hgb 13.0 g/dL (11.5-15.3) 04/10/22 15:15 Hct 39.6 % (37.0-47.0) 04/10/22 15:15 MCV 92.3 fl (81-99) 04/10/22 15:15 MCH 30.3 pg (28.0-34.0) 04/10/22 15:15 MCHC 32.8 g/dL (30.0-36.0) 04/10/22 15:15 RDW 14.1 % (12.1-15.1) 04/10/22 15:15 Plt Count 168 10^3/cmm (130-400) 04/10/22 15:15 MPV 11.3 fL (7.4-10.4) H 04/10/22 15:15 Neut % (Auto) 58.5 % 04/10/22 15:15 Lymph % (Auto) 32.7 % 04/10/22 15:15 Banks % (Auto) 6.8 % 04/10/22 15:15 Eos % (Auto) 1.2 % 04/10/22 15:15 Baso % (Auto) 0.6 % 04/10/22 15:15 Neut # (Auto) 2.93 10^3/uL (1.8-7.7) 04/10/22 15:15 Lymph # (Auto) 1.6 10^3/uL (0.8-4.8) 04/10/22 15:15 Banks # (Auto) 0.3 10^3/uL (0.2-0.9) 04/10/22 15:15 Eos # (Auto) 0.1 10^3/uL (0.0-0.8) 04/10/22 15:15 Baso # (Auto) 0.0 10^3/uL (0.0-0.1) 04/10/22 15:15 Nucleated RBC % (auto) 0 % 04/10/22 15:15 Nucleated RBCs # 0.0 /100WBC 04/10/22 15:15 Sodium 140 mmol/L (136-145) 04/10/22 15:15 Potassium 4.0 mmol/L (3.5-5.1) 04/10/22 15:15 Chloride 104 mmol/L (98-107) 04/10/22 15:15 Carbon Dioxide 25 mmol/L (22-29) 04/10/22 15:15 Anion Gap 15.0 (5-19) 04/10/22 15:15 BUN 17 mg/dL (6-20) 04/10/22 15:15 Creatinine 1.0 mg/dL (0.5-0.9) H 04/10/22 15:15 GFR Calculation 58.2 mL/min (90-130) L 04/10/22 15:15 Glucose 104 mg/dL (65-115) 04/10/22 15:15 Calculated Osmolality 292 mOsm/kg (285-295) 04/10/22 15:15 Calcium 9.4 mg/dL (8.5-10.5) 04/10/22 15:15 Total Bilirubin 1.0 mg/dL (0.15-1.2) 04/10/22 15:15 AST 16 U/L (0-32) 04/10/22 15:15 ALT 11 U/L (0-33) 04/10/22 15:15 Alkaline Phosphatase 94 IU/L (35-105) 04/10/22 15:15 Troponin T Baseline 20 ng/L (0-10) H 04/10/22 15:15 NT-Pro-B Natriuret Pep 5202 pg/mL (0-125) H 04/10/22 15:15 Total Protein 7.4 g/dL (6.6-8.7) 04/10/22 15:15 Albumin 4.5 g/dL (3.5-5.2) 04/10/22 15:15 Globulin 2.9 g/dL (1.3-4.6) 04/10/22 15:15 TSH 1.72 uIU/mL (0.27-4.20) 04/10/22 15:15 TSH Cancelled 04/10/22 15:15 Urine Color Dark yellow (Yellow) 04/10/22 16:29 Urine Appearance Hazy (CLEAR) A 04/10/22 16:29 Urine pH 5 (5-7) 04/10/22 16:29 Ur Specific [place] 1.030 (1.005-1.030) 04/10/22 16:29 Urine Protein Neg (Negative) 04/10/22 16:29 Urine Glucose (UA) Norm (Normal) 04/10/22 16:29 Urine Ketones Negative (Negative) 04/10/22 16:29 Urine Blood Neg (Negative) 04/10/22 16:29 Urine Nitrate Negative (Negative) 04/10/22 16:29 Urine Bilirubin 1+ (Negative) H 04/10/22 16:29 Urine Urobilinogen Norm mg/dL (Negative) 04/10/22 16:29 Ur Leukocyte Esterase Trace (Negative) H 04/10/22 16:29 Urine RBC 0-4 /hpf (0-2) H 04/10/22 16:29 Urine WBC 10-15 /hpf (0-5) H 04/10/22 16:29 Ur Squamous Epith Cells 10-15 /hpf (0-5) H 04/10/22 16:29 Amorphous Sediment Not Reportable 04/10/22 16:29 Urine Bacteria Trace /hpf (NONE) 04/10/22 16:29 Discharge Plan Discharge Patient Disposition: Admitted As Inpatient Admit Provider: Sally Carrington Clinical Impression: Atrial fibrillation/flutter, ASD (atrial septal defect), Pacemaker Condition: Stable Discharge Diet: Cardiac Discharge Activity: Resume usual activity and Increase activity as tolerated Coding Level of Care Code ED Director Of Primary Care for Chg Fwd Exam Detailed
[2022-04-10 15:29] LABS: Basophils % 0.6 %; Eosinophils # 0.1 10^3/uL (0.0-0.8); Eosinophils % 1.2 %; Hematocrit 39.6 % (37.0-47.0); Lymphocytes # 1.6 10^3/uL (0.8-4.8); Lymphocytes % 32.7 %; Mean Corpuscular HGB Conc 32.8 g/dL (30.0-36.0); Mean Corpuscular Hemoglobin 30.3 pg (28.0-34.0); Mean Corpuscular Volume 92.3 fl (81-99); Mean Platelet Volume 11.3 fL (7.4-10.4); Monocytes # 0.3 10^3/uL (0.2-0.9); Monocytes % 6.8 %; Neutrophils # 2.93 10^3/uL (1.8-7.7); Neutrophils % 58.5 %; Nucleated Red Blood Cells % 0 %; Platelet Count 168 10^3/cmm (130-400); Red Blood Count 4.29 10^6/uL (4.1-5.3); Red Cell Distribution Width 14.1 % (12.1-15.1)
[2022-04-10] MEDS: esmolol drip 2,500 MG/250 ML PREMIX 15.65 MG IV (15:48)
[2022-04-10 15:59] LABS: Troponin(5th) Baseline 20 ng/L (0-10)
[2022-04-10 16:02] LABS: Alanine Aminotransferase 11 U/L (0-33); Albumin Level 4.5 g/dL (3.5-5.2); Alkaline Phosphatase 94 IU/L (35-105); Aspartate Amino Transferase 16 U/L (0-32); Blood Urea Nitrogen 17 mg/dL (6-20); Calcium 9.4 mg/dL (8.5-10.5); Carbon Dioxide 25 mmol/L (22-29); Chloride 104 mmol/L (98-107); Globulin 2.9 g/dL (1.3-4.6); Glomerular Filtration Rate 58.2 mL/min (90-130); Glucose 104 mg/dL (65-115); Osmolality Calculated 292 mOsm/kg (285-295); Sodium 140 mmol/L (136-145); Thyroid Stimulating Hormone 1.72 uIU/mL (0.27-4.20); Total Protein 7.4 g/dL (6.6-8.7)
--- NOTE | 2022-04-10 16:58 | PC.NURSE ---
EKG done at 1655 and shown to ER doctor
--- NOTE | 2022-04-10 17:03 | ECG_ITS ---
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 Measurements Intervals [place] Rate: 98 P: AL: QRS: 75 QRSD: 88 T: 48 QT: 422 QTc: 539 Interpretive Statements ATRIAL FIBRILLATION POSSIBLE RIGHT VENTRICULAR CONDUCTION DELAY [RSR (QR) IN V1/V2] NONSPECIFIC ST & T-WAVE ABNORMALITY PROLONGED QT INTERVAL Compared to ECG 04/10/2022 14:47:07 Prolonged QT interval now present Atrial flutter no longer present T-wave abnormality still present Electronically Signed On 04-11-2022 19:43:20 CDT by Michael Fletcher M.D. [id number]
[2022-04-10 17:19] LABS: Add Urine Microscopic? YES; Bacteria Urine TRACE /hpf; Bilirubin Urine 1+ (Negative); Blood Urine Neg (Negative); Glucose Urine UA Norm (Normal); Ketones Urine Negative (Negative); Leukocyte Esterase Urine Trace (Negative); Nitrate Urine Negative (Negative); Protein Urine Neg (Negative); RBC Urine 0-4 /hpf (0-2); Urine Appearance Hazy (CLEAR); Urine Color Dark Yellow (Yellow); Urobilinogen Urine Norm (Negative); pH Urine 5 (5-7)
--- NOTE | 2022-04-10 17:20 | P.HP_ITS ---
Providers/Chief Complaint Primary Care Provider: Greta Galeana NP Chief Complaint: chest pain History of Present Illness Ana Maria Araya is a 51 year old female with past medical history of atrial septal defect, pacemaker, nephrolithiasis presented to the emergency room with complaints of chest discomfort. She does have a previous history of heart block and that is why pacemaker was placed. ASD was repaired by surgery. She is not on any anticoagulation. She has noticed that she has been having some palpitations with shortness of breath and mild chest discomfort. There is no known history of atrial fibrillation. Patient states that she would like to be a DNR/DNI. is present at bedside. I had a long discussion with her and told her what that entails and she still says that she would not like to be resuscitated. She says that she has felt her lower extremities to be a little edematous lately but otherwise has been okay. Denies any anxiety, cough, nausea, vomiting, impending sense of doom. She does endorse having palpitations and skipped beats. ER course: On arrival 137/76, pulse 96, respiratory 18, temperature 97.9, saturation 96 on room air. Atrial fibrillation was evidenced on the EKG. Patient was started on esmolol drip which is now titrated down to 75/h. She will be admitted to the hospital for further management. Medications/Allergies Home Medications Medication Instructions Recorded Confirmed Last Taken Type clonazepam 1 mg tablet (Klonopin) 1 mg PO DAILY PRN 04/10/22 04/10/22 Unknown History hydrocodone 7.5 mg-acetaminophen 1 tab PO Q8H PRN 04/10/22 04/10/22 Unknown History 325 mg tablet lansoprazole 15 mg capsule,delayed 15 mg PO DAILY 04/10/22 04/10/22 04/10/22 History release loratadine 10 mg tablet (Claritin) 10 mg PO DAILY 04/10/22 04/10/22 04/10/22 History losartan 100 mg tablet 100 mg PO DAILY 04/10/22 04/10/22 04/10/22 History quetiapine 50 mg tablet (Seroquel) 50 mg PO BEDTIME 04/10/22 04/10/22 04/09/22 History Allergies Allergy/AdvReac Type Severity Reaction Status Date / Time Penicillins Allergy ALGY-Hives Verified 04/10/22 15:02 PFSH Acute PFSH: Medical History (Updated 04/10/22 @ 17:24 by Sally Carrington MD) ASD (atrial septal defect) Nephrolithiasis Pacemaker Vitals/I&O/Wt Last Vital Signs Temp 97.9 F 04/10/22 15:40 Pulse 96 04/10/22 17:10 Resp 18 04/10/22 17:10 BP 137/76 04/10/22 17:10 Pulse Ox 96 04/10/22 17:10 Weight last 48 hrs Weight 104.326 kg Physical Exam Narrative: General: Alert oriented x3, patient seen sitting up in bed appearing comfortable at this time on esmolol drip. HEENT: Normocephalic, atraumatic, EOMI, breathing room air Cardio: Irregularly irregular, tachycardic normal S1-S2, Respiratory: Good bilateral air entry, no wheezes no rhonchi appreciated, bi basilar crackles present one third base of lung wolf GI: Abdomen soft, nontender, nondistended, bowel sounds + Behavior: Appropriate and cooperative Extremities: Trace bilateral lower extremity edema no cyanosis Data : 04/11/22 03:49 04/11/22 03:49 A&P Assessment and plan (1) Nephrolithiasis: Status: Acute (2) Pacemaker: Status: Acute (3) ASD (atrial septal defect): Status: Acute (4) Atrial fibrillation: Status: Acute Plan #Atrial fibrillation with RVR #Possible new onset heart failure, unsure systolic versus diastolic #History of heart block status post pacemaker #History of ASD status post surgery #Hypertension #Anxiety ? Continue on esmolol drip. We will start metoprolol 25 twice daily orally. Titrate down drip ? Check TSH, lipid profile, check hemoglobin A1c -Hold home losartan at this time ? I will put on Lasix 40 daily for now. Patient did appear fluid overloaded at this time ? BNP 5000 ? Trend troponins and follow. ? [id number]: 1 for hypertension ?Echocardiogram ordered ? Admit to ICU. ? Continue patient on her home anxiety medications. She takes Klonopin 1 mg daily scheduled, Seroquel 50 at bedtime. ? She has had all her work-up and management done in [facility]. We will request for records. Full code DVT prophylaxis: Lovenox 40 daily Attestations Medical Necessity Statement*: Will require inpatient management for atrial fibrillation. On esmolol drip. Anticipate 48-hour stay in the hospital. Coding Level of Care Code Acute Operations Supervisor Chemical Cleaning for Chg Fwd Diagnoses Nephrolithiasis N20.0 Pacemaker Z95.0 ASD (atrial septal defect) Q21.1 Atrial fibrillation I48.91
[2022-04-10 17:23] LABS: Troponin 5 2HR 18.43 ng/L (0-10)
[2022-04-10 17:26] LABS: Troponin 5 2HR Delta -1.57 ABS# (0-10)
--- NOTE | 2022-04-10 17:34 | USCV_ITS ---
Ana Maria Araya Age: 51 Gender: F : 1970 Exam Date: 04/10/2022 21:47 Ordering Phys: Sally Carrington MD Technologist: Saud Bocanegra Exam Location: [facility] [place] Indication: atrial fibrillation BP: 132 / 71 HR: 92 Rhythm: Atrial fibrillation Technical Quality: Adequate MEASUREMENTS (Male / Female) Normal Values 2D ECHO LV Diastolic Diameter PLAX 3.6 cm 4.2 - 5.9 / 3.9 - 5.3 cm LV Systolic Diameter PLAX 3.2 cm IVS Diastolic Thickness 1.3 cm 0.6 - 1.0 / 0.6 - 0.9 cm IVS Systolic Thickness 1.4 cm LVPW Diastolic Thickness 1.7 cm 0.6 - 1.0 / 0.6 - 0.9 cm LVPW Systolic Thickness 1.8 cm LVOT Diameter 1.9 cm LV Ejection Fraction 2D Teich 7.8 % LV Ejection Fraction MOD 2C 43.7 % LV Ejection Fraction 2C AL 42.2 % LA Diameter 3.1 cm LA Width 5.8 cm LA Height 4.3 cm Aorta at Sinotubular Diameter 2.6 cm IVC Diameter 1.3 cm M-MODE Aortic Annulus Diameter 2.4 cm LA Ao Ratio MM 1.5 MV E Point Septal Separation 0.8 cm DOPPLER AV Peak Velocity 77.0 cm/s LVOT Peak Velocity 65.0 cm/s AV Area Cont Eq vti 2.2 cm squared AV Area Cont Eq pk 2.5 cm squared MV Area PHT 5.6 cm squared Mitral E to A Ratio 1.5 MV E' Velocity 34.5 cm/s Mitral E to MV E' Ratio 7.0 Mitral E to LV E' Lateral Ratio 13.1 Mitral E to LV E' Septal Ratio 4.8 TR Peak Velocity 154.3 cm/s TR Peak Gradient 9.5 mmHg TR Mean Velocity 122.9 cm/s TR Mean Gradient 6.4 mmHg TR Velocity Time Integral 36.9 cm Right Atrial Pressure 5.0 mmHg Pulmonary Artery Systolic Pressu 14.5 mmHg PV Peak Velocity 68.0 cm/s FINDINGS Left Ventricle Normal LV size with a diminished ejection fraction of 44%. Diffuse hypokinesia left ventricle. Right Ventricle Normal RV size and ejection fraction. Right Atrium Mildly dilated right atrium Left Atrium Mildly increased left atrial size. Mitral Valve Thickened mitral valve. Aortic Valve Thickened aortic valve. Tricuspid Valve Trace tricuspid valve regurgitation. Pulmonic Valve Pulmonic valve not well visualized. Pericardium No pericardial effusion. Aorta Normal aortic annulus size. IVC Normal IVC dimension CONCLUSIONS Normal LV size with a diminished ejection fraction of 44%. Diffuse hypokinesia left ventricle. Mild biatrial enlargement Thickened aortic and mitral valves. There is no pericardial effusion. There are no intracardiac masses. No similar previous studies are available for comparison Dr Michael Fletcher MD [facility] (Electronically Signed) Final Date: 11 April 2022 14:56 S
[2022-04-10 18:11] LABS: NT Pro B Type Natriuretic Pept 5202 pg/mL (0-125)
[2022-04-10] MEDS: enoxaparin 40 mg/0.4 mL Syringe SUBCUT (18:26)
[2022-04-10] MEDS: quetiapine 25 mg Tablet 50 MG PO (20:17)
[2022-04-10] MEDS: FUROsemide 10 mg/mL SDV 4mL 40 MG IVP (20:17)
[2022-04-10] MEDS: metoprolol tartrate 25 mg Tablet PO (20:17)
[2022-04-10] MEDS: esmolol drip 2,500 MG/250 ML PREMIX 62.6 MG IV (20:19)
--- NOTE | 2022-04-10 21:03 | ECG_ITS ---
[facility] Test Date: 2022-04-10 Pat Name: Ana Maria Araya Department: Room: 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 Measurements Intervals [place] Rate: 105 P: MT: QRS: 78 QRSD: 85 T: 0 QT: 128 QTc: 169 Interpretive Statements ATRIAL FLUTTER/TACHYCARDIA WITH RAPID VENTRICULAR RESPONSE POSSIBLE RIGHT VENTRICULAR CONDUCTION DELAY [RSR (QR) IN V1/V2] NONSPECIFIC ST & T-WAVE ABNORMALITY ABNORMAL RHYTHM ECG Compared to ECG 04/10/2022 16:55:15 Atrial fibrillation no longer present Prolonged QT interval no longer present T-wave abnormality still present Electronically Signed On 04-11-2022 19:43:33 CDT by Michael Fletcher M.D. [id number]
[2022-04-10 21:35] LABS: Troponin 5 6HR 19.71 ng/L (0-10)
[2022-04-10 21:36] LABS: Troponin 5 6HR Delta -0.29 ng/L (0-12)
[2022-04-11] VITALS (262 sets, daily range): BP systolic 59–144; BP diastolic 44–96; PULSE 68–121; RESP 7–38; TEMP 36.1–36.6; O2SAT 88–100
[2022-04-11 04:09] LABS: Basophils % 0.6 %; Eosinophils # 0.1 10^3/uL (0.0-0.8); Eosinophils % 1.7 %; Hematocrit 40.3 % (37.0-47.0); Hemoglobin 13.4 g/dL (11.5-15.3); Lymphocytes # 1.9 10^3/uL (0.8-4.8); Lymphocytes % 39.3 %; Mean Corpuscular HGB Conc 33.3 g/dL (30.0-36.0); Mean Corpuscular Volume 90.2 fl (81-99); Mean Platelet Volume 11.5 fL (7.4-10.4); Monocytes # 0.4 10^3/uL (0.2-0.9); Monocytes % 8.6 %; Neutrophils # 2.37 10^3/uL (1.8-7.7); Neutrophils % 49.8 %; Nucleated Red Blood Cells % 0 %; Platelet Count 174 10^3/cmm (130-400); Red Blood Count 4.47 10^6/uL (4.1-5.3); Red Cell Distribution Width 13.7 % (12.1-15.1); White Blood Count 4.8 10^3/uL (4.0-10.0)
[2022-04-11 04:28] LABS: Alanine Aminotransferase 10 U/L (0-33); Albumin Level 4.1 g/dL (3.5-5.2); Alkaline Phosphatase 87 IU/L (35-105); Aspartate Amino Transferase 17 U/L (0-32); Blood Urea Nitrogen 17 mg/dL (6-20); Calcium 9.5 mg/dL (8.5-10.5); Carbon Dioxide 26 mmol/L (22-29); Chloride 103 mmol/L (98-107); Globulin 3.2 g/dL (1.3-4.6); Glomerular Filtration Rate 58.2 mL/min (90-130); Glucose 81 mg/dL (65-115); Magnesium 1.9 mg/dL (1.7-2.3); Osmolality Calculated 291 mOsm/kg (285-295); Sodium 140 mmol/L (136-145); Total Bilirubin 0.9 mg/dL (0.15-1.2); Total Protein 7.3 g/dL (6.6-8.7)
[2022-04-11] MEDS: pantoprazole DR 40 mg Tablet PO (08:34)
[2022-04-11] MEDS: loratadine 10 mg Tablet PO (08:34)
[2022-04-11] MEDS: metoprolol tartrate 25 mg Tablet PO (08:35)
[2022-04-11] MEDS: HYDROcodone-acetaminophen 7.5-325 mg Tablet 1 TAB PO ×2 (08:44→16:02)
--- NOTE | 2022-04-11 11:53 | PC.CHAP ---
Pastoral Care Encounter/Spiritual Assessment Type of Contact [] Declined industrial mechanic visit [] Patient/Family/Request visit [] Outpatient visit [] Follow-up visit [] Physician referral [] Code/Alert [x] Routine visit [] Staff referral [] Actively dying [] Patient sleeping [] Family support [] [] Out of room [] Palliative care [] [x] Receiving care in room [] Pre-surgical visit [] Trauma [] Long length of stay [x] ICU visit [] Other: Relational/Emotional Strength [] Patient feels connected with others/family/visitors/staff [] Distress [] Loneliness/isolation [] Abandonment Spirituality of Patient [] Person of Ronna [] Attends Tenriism of their Ronna [] Believes in Prayer [] Reads Bible or Sikh materials [] There are Spiritual issues to be addressed Green Building Engineer Interventions [x] Prayer [] Active listening [] Non-anxious presence [] Spiritual/emotional support [] Crisis/trauma care [] Spiritual counseling [] Bereavement support [] Provided bereavement packet [] Provided Bible/devotional materials [] Provided toy/stuffed animal, coloring book to patient or family member [] Provided Communion [] Anointing/Cyclone [] Salvation [x] Completed spiritual assessment [] Other: Impact on Illness or Injury [] Angry [] Fearful [] Anxious [] Often cries [] Exhaustion [] Unable to work [] Unable to attend buddhist [] Unable to walk/stand [] Unable to read [] Unable to drive [] Unable to eat/drink [] Unable to sleep [] Unable to be with family [] Patient intubated [] Other: Summary Time spent with patient
[2022-04-11] MEDS: metoprolol tartrate 50 mg Tablet PO ×2 (12:47→20:27)
[2022-04-11] MEDS: FUROsemide 10 mg/mL SDV 4mL 40 MG IVP (14:31)
--- NOTE | 2022-04-11 14:39 | PM.DCS ---
Discharge Providers Date of Admission: 04/10/22 16:41 Date of Discharge: April 11, 2022 Attending Provider at Admission: Sally Carrington MD Attending Provider at Discharge: Shan Paige MD Primary Care Provider: Greta Galeana NP Diagnoses at Discharge Discharge Diagnosis (1) Nephrolithiasis: Status: Acute (2) Pacemaker: Status: Acute (3) ASD (atrial septal defect): Status: Acute (4) Atrial fibrillation: Status: Acute Reason for Visit Reason for Visit: chest pain Brief History: History as per HPI: Ana Maria Araya is a 51 year old female with past medical history of atrial septal defect, pacemaker, nephrolithiasis presented to the emergency room with complaints of chest discomfort.? She does have a previous history of heart block and that is why pacemaker was placed.? ASD was repaired by surgery.? She is not on any anticoagulation.? She has noticed that she has been having some palpitations with shortness of breath and mild chest discomfort.? There is no known history of atrial fibrillation.? Patient states that she would like to be a DNR/DNI.? is present at bedside.? I had a long discussion with her and told her what that entails and she still says that she would not like to be resuscitated.? She says that she has felt her lower extremities to be a little edematous lately but otherwise has been okay.? Denies any anxiety, cough, nausea, vomiting, impending sense of doom.? She does endorse having palpitations and skipped beats. ER course: On arrival 137/76, pulse 96, respiratory 18, temperature 97.9, saturation 96 on room air.? Atrial fibrillation was evidenced on the EKG.? Patient was started on esmolol drip which is now titrated down to 75/h.? She will be admitted to the hospital for further management. Hospital Course Hospital Course Patient admitted to the hospital further evaluation and management of atrial fibrillation with flutter with rapid ventricular response. Esmolol drip was gradually weaned off while oral metoprolol was started. Her heart rate was better controlled. Anticoagulation for [id number] score of 2 for hypertension and sex she was started on full dose anticoagulation with Eliquis 5 mg twice daily. Regarding the diagnosis of new onset of atrial fibrillation/flutter for the possibility of electrocardioversion were discussed in detail with patient and on-call jboss architect. On-call jboss architect recommends patient to be discharged on event monitor for 3 weeks along with anticoagulation with the possibility of follow-up as an outpatient for elective cardioversion. Patient verbalized understanding and is agreeable. She is been discharged on metoprolol 50 mg twice daily. Her blood pressures are well controlled. Losartan home dose has been withheld for now. Physical Exam Narrative: General: Alert oriented x3, patient seen sitting up in bed appearing comfortable at this time on esmolol drip. HEENT: Normocephalic, atraumatic, EOMI, breathing room air Cardio: Irregularly irregular, normal S1-S2, Respiratory: Good bilateral air entry, no wheezes no rhonchi appreciated, bibasilar crackles present one third base of lung wolf GI: Abdomen soft, nontender, nondistended, bowel sounds + Behavior: Appropriate and cooperative Extremities: Trace bilateral lower extremity edema no cyanosis Discharge Data Studies Completed and Pending Completed Studies During Hospitalization Category Date Time Status XR chest 1V portable [id number] Stat Exams 04/10/22 15:08 Completed Pending at discharge Category Date Time Status Urinalysis Stat Lab 04/10/22 18:02 Ordered CV. echo complete* [id number] Routine Ultrasound 04/10/22 17:34 Taken Radiology Impressions Chest X-Ray 04/10/22 15:08 IMPRESSION: No acute findings. Echocardiogram CONCLUSIONS ?Normal LV size with a diminished ejection fraction of 44%.? ?Diffuse hypokinesia left ventricle. ?Mild biatrial enlargement ?Thickened aortic and mitral valves. ?There is no pericardial effusion. ?There are no intracardiac masses. ?No similar previous studies are available for comparison ?Dr Michael Fletcher MD [facility] ?(Electronically Signed) ?Final Date:? ? ? 11 April 2022 ? 14:56 S Laboratory Results WBC 4.8 10^3/uL (4.0-10.0) 04/11/22 03:49 RBC 4.47 10^6/uL (4.1-5.3) 04/11/22 03:49 Hgb 13.4 g/dL (11.5-15.3) 04/11/22 03:49 Hct 40.3 % (37.0-47.0) 04/11/22 03:49 MCV 90.2 fl (81-99) 04/11/22 03:49 MCH 30.0 pg (28.0-34.0) 04/11/22 03:49 MCHC 33.3 g/dL (30.0-36.0) 04/11/22 03:49 RDW 13.7 % (12.1-15.1) 04/11/22 03:49 Plt Count 174 10^3/cmm (130-400) 04/11/22 03:49 MPV 11.5 fL (7.4-10.4) H 04/11/22 03:49 Neut % (Auto) 49.8 % 04/11/22 03:49 Lymph % (Auto) 39.3 % 04/11/22 03:49 [place] % (Auto) 8.6 % 04/11/22 03:49 Eos % (Auto) 1.7 % 04/11/22 03:49 Baso % (Auto) 0.6 % 04/11/22 03:49 Neut # (Auto) 2.37 10^3/uL (1.8-7.7) 04/11/22 03:49 Lymph # (Auto) 1.9 10^3/uL (0.8-4.8) 04/11/22 03:49 [place] # (Auto) 0.4 10^3/uL (0.2-0.9) 04/11/22 03:49 Eos # (Auto) 0.1 10^3/uL (0.0-0.8) 04/11/22 03:49 Baso # (Auto) 0.0 10^3/uL (0.0-0.1) 04/11/22 03:49 Nucleated RBC % (auto) 0 % 04/11/22 03:49 Nucleated RBCs # 0.0 /100WBC 04/11/22 03:49 Sodium 140 mmol/L (136-145) 04/11/22 03:49 Potassium 4.0 mmol/L (3.5-5.1) 04/11/22 03:49 Chloride 103 mmol/L (98-107) 04/11/22 03:49 Carbon Dioxide 26 mmol/L (22-29) 04/11/22 03:49 Anion Gap 15.0 (5-19) 04/11/22 03:49 BUN 17 mg/dL (6-20) 04/11/22 03:49 Creatinine 1.0 mg/dL (0.5-0.9) H 04/11/22 03:49 GFR Calculation 58.2 mL/min (90-130) L 04/11/22 03:49 Glucose 81 mg/dL (65-115) 04/11/22 03:49 Calculated Osmolality 291 mOsm/kg (285-295) 04/11/22 03:49 Calcium 9.5 mg/dL (8.5-10.5) 04/11/22 03:49 Magnesium 1.9 mg/dL (1.7-2.3) 04/11/22 03:49 Total Bilirubin 0.9 mg/dL (0.15-1.2) 04/11/22 03:49 AST 17 U/L (0-32) 04/11/22 03:49 ALT 10 U/L (0-33) 04/11/22 03:49 Alkaline Phosphatase 87 IU/L (35-105) 04/11/22 03:49 Troponin T Baseline 20 ng/L (0-10) H 04/10/22 15:15 Troponin T 120 Minute 18.43 ng/L (0-10) H 04/10/22 17:02 Delta Troponin T -1.57 ABS# (0-10) L 04/10/22 17:02 Troponin T Hi Sens 6Hr 19.71 ng/L (0-10) H 04/10/22 21:00 Troponin T Hi Sens 6Hr Delta -0.29 ng/L (0-12) L 04/10/22 21:00 NT-Pro-B Natriuret Pep 5202 pg/mL (0-125) H 04/10/22 15:15 Total Protein 7.3 g/dL (6.6-8.7) 04/11/22 03:49 Albumin 4.1 g/dL (3.5-5.2) 04/11/22 03:49 Globulin 3.2 g/dL (1.3-4.6) 04/11/22 03:49 TSH 1.72 uIU/mL (0.27-4.20) 04/10/22 15:15 TSH Cancelled 04/10/22 15:15 Urine Color Dark yellow (Yellow) 04/10/22 16:29 Urine Appearance Hazy (CLEAR) A 04/10/22 16:29 Urine pH 5 (5-7) 04/10/22 16:29 Ur Specific [place] 1.030 (1.005-1.030) 04/10/22 16:29 Urine Protein Neg (Negative) 04/10/22 16:29 Urine Glucose (UA) Norm (Normal) 04/10/22 16:29 Urine Ketones Negative (Negative) 04/10/22 16:29 Urine Blood Neg (Negative) 04/10/22 16:29 Urine Nitrate Negative (Negative) 04/10/22 16:29 Urine Bilirubin 1+ (Negative) H 04/10/22 16:29 Urine Urobilinogen Norm mg/dL (Negative) 04/10/22 16:29 Ur Leukocyte Esterase Trace (Negative) H 04/10/22 16:29 Urine RBC 0-4 /hpf (0-2) H 04/10/22 16:29 Urine WBC 10-15 /hpf (0-5) H 04/10/22 16:29 Ur Squamous Epith Cells 10-15 /hpf (0-5) H 04/10/22 16:29 Amorphous Sediment Not Reportable 04/10/22 16:29 Urine Bacteria Trace /hpf (NONE) 04/10/22 16:29 Vitals Last Vital Signs Temp 97.9 F 04/11/22 11:35 Pulse 93 04/11/22 13:00 Resp 17 04/11/22 13:00 BP 95/60 04/11/22 13:00 Pulse Ox 91 04/11/22 12:25 Discharge Plan Discharge Patient Disposition: Home Condition: Stable Prescriptions: New metoprolol tartrate 25 mg Tablet 50 mg PO BID@0900,2100 30 Days Qty: 120 0RF Lasix 20 mg tablet 20 mg PO DAILY Qty: 30 0RF Eliquis 5 mg tablet 5 mg PO BID Qty: 60 0RF Continued Klonopin 1 mg Tablet 1 mg PO DAILY PRN (Reason: Anxiety) 0RF hydrocodone-acetaminophen 7.5-325 mg Tablet 1 tab PO Q8H PRN (Reason: Pain) 0RF lansoprazole 15 mg Capsule,Delayed Release(Dr/Ec) 15 mg PO DAILY 0RF Claritin 10 mg Tablet 10 mg PO DAILY 0RF Seroquel 50 mg Tablet 50 mg PO BEDTIME 0RF Discontinued losartan 100 mg Tablet 100 mg PO DAILY 0RF Discharge Orders: Discharge Order (Routine); Ordered 04/11/22 Ordered By: Shan Paige Other Ambulatory Orders: MCT/Event Monitor 21 Days (Routine) Timeframe: 1 Week Facility: [facility] - Location: Radiology Ordered By: Shan Paige Referrals: Juventino Chavez M.D [Physician] - 1 month Greta Galeana [Primary Care Provider] - Discharge Diet: Cardiac Discharge Activity: Resume usual activity and Increase activity as tolerated Patient Instructions: Opioid Safety Discharge Attestations Time Spent in Discharge Care*: critical care time Specific Discharge Activities: educating patient, discussing with pcp/other providers, discussing with case briefer/social workers/dc planners, documenting/other paperwork and evaluating patient/reviewing data Status at Discharge: Cognitive status at discharge: cognitively intact, Behavioral status at discharge: cooperative, Functional status at discharge: independent ambulation, Overall status at discharge: patient is back to baseline Quality Metrics Clinical Quality Measures [ No reported AMI, CVA or VTE this stay] Coding Level of Care Code Acute Chg FW DC note Diagnoses Nephrolithiasis N20.0 Pacemaker Z95.0 ASD (atrial septal defect) Q21.1 Atrial fibrillation I48.91
--- NOTE | 2022-04-11 15:11 | ECG_ITS ---
[facility] Test Date: 2022-04-12 Pat Name: Ana Maria Araya Department: Room: [facility] Gender: Female Administrative Director: : [id number] Requested By: Shan Paige Order Number: [id number] Elena Layton MD: Juventino Chavez M.D. Interpretive Statements NAME OF STUDY: LEXISCAN SESTAMIBI STRESS TEST INDICATION: [New Low EF] Procedure: At the baseline, the blood pressure was 168/101mmHg with a heart rate of 129 bpm. The electrocardiogram showed atrial flutter with RVR. The Lexiscan was infused over a period of 20 seconds. A total of 0.4 mg of Lexiscan was infused. The stress phase was continued for a total of 5 minutes. Heart rate was at the end of stress phase was 136 bpm and BP of 261/74 . The EKG at the peak infusion revealed Atrial flutter with RVR and PVCs. Sestamibi was injected 20 seconds after the Lexiscan infusion. Blood pressure at the end of recovery phase was 132/57 mmHg with a heart rate of 135bpm. Conclusion: 1. Normal EKG response to Lexiscan infusion 2. LEXISCAN induced PVCs were seen. 3. Hypertensive blood pressure response and normal heart rate response. 4. Sestamibi/sestamibi perfusion scan pending; see separate report. Electronically Signed On 04-28-2022 19:10:52 CDT by Juventino Chavez M.D. [email or web address]
[2022-04-11 15:53] LABS: Iron 74 ug/dL (37-145); Percent Saturation 21.6 % (20-50); Total Iron Binding Capacity 342 mcg/dl; Unsaturated Iron Binding 268 ug/dL (112-347)
[2022-04-11] MEDS: aspirin 81 mg EC Tablet PO (16:02)
[2022-04-11] MEDS: enoxaparin 120 mg/0.8 mL Syringe 110 MG SUBCUT (16:03)
--- NOTE | 2022-04-11 19:33 | PC.NURSE ---
Shift Summary: patient has rested in bed throughout most of the shift. Walked approximately 100 feet today. DUring ambulation, heart rate roosevelt from the mid 90's to 115-120. OXygen saturation on room air remained 92%+. Patient reported feeling out of breath and fatugued about half way through so we returned to the room. Stress test in the morning.
[2022-04-11] MEDS: quetiapine 25 mg Tablet 50 MG PO (20:26)
[2022-04-11] MEDS: CLONazepam 1 mg Tablet PO (20:30)
[2022-04-12] VITALS (106 sets, daily range): BP systolic 76–132; BP diastolic 50–74; PULSE 67–135; RESP 6–24; TEMP 36.4–36.7; O2SAT 88–98
[2022-04-12] MEDS: enoxaparin 120 mg/0.8 mL Syringe 110 MG SUBCUT ×2 (03:51→16:08)
[2022-04-12 04:20] LABS: Basophils % 0.5 %; Eosinophils # 0.1 10^3/uL (0.0-0.8); Eosinophils % 1.4 %; Hematocrit 42.5 % (37.0-47.0); Hemoglobin 13.9 g/dL (11.5-15.3); Lymphocytes # 1.8 10^3/uL (0.8-4.8); Lymphocytes % 41.8 %; Mean Corpuscular HGB Conc 32.7 g/dL (30.0-36.0); Mean Corpuscular Hemoglobin 30.4 pg (28.0-34.0); Mean Platelet Volume 11.5 fL (7.4-10.4); Monocytes # 0.4 10^3/uL (0.2-0.9); Monocytes % 9.3 %; Neutrophils # 2.07 10^3/uL (1.8-7.7); Nucleated Red Blood Cells % 0 %; Platelet Count 175 10^3/cmm (130-400); Red Blood Count 4.57 10^6/uL (4.1-5.3); White Blood Count 4.4 10^3/uL (4.0-10.0)
[2022-04-12 04:33] LABS: Alanine Aminotransferase 8 U/L (0-33); Albumin Level 4.2 g/dL (3.5-5.2); Alkaline Phosphatase 85 IU/L (35-105); Anion Gap 15.8 (5-19); Aspartate Amino Transferase 11 U/L (0-32); Blood Urea Nitrogen 22 mg/dL (6-20); Calcium 9.6 mg/dL (8.5-10.5); Carbon Dioxide 27 mmol/L (22-29); Chloride 101 mmol/L (98-107); Chol HDL Ratio 2.86 mg/dL (0.0-4.40); Cholesterol 143 mg/dL (0-200); Glomerular Filtration Rate 58.2 mL/min (90-130); Glucose 103 mg/dL (65-115); HDL Cholesterol 50 mg/dL (60-100); LDL Cholesterol Calculated 68 mg/dL (50-129); Osmolality Calculated 294 mOsm/kg (285-295); Potassium 3.8 mmol/L (3.5-5.1); Sodium 140 mmol/L (136-145); Total Bilirubin 0.6 mg/dL (0.15-1.2); Total Protein 7.2 g/dL (6.6-8.7); Triglycerides 126 mg/dL (0-150); VLDL Cholestrol Calculation 25 mg/dL (0-30)
[2022-04-12 06:58] LABS: Estmated Average Glucose 111; Hemoglobin A1C 5.5 % (4.0-6.0)
[2022-04-12] MEDS: regadenoson 0.4 Mg/5 ml Syringe IVP (08:10)
--- NOTE | 2022-04-12 09:45 | PC.CHAP ---
Pastoral Care Encounter/Spiritual Assessment Type of Contact [] Declined certifier visit [] Patient/Family/Request visit [] Outpatient visit [] Follow-up visit [] Physician referral [] Code/Alert [x] Routine visit [] Staff referral [] Actively dying [] Patient sleeping [] Family support [] [x] Out of room [] Palliative care [] [] Receiving care in room [] Pre-surgical visit [] Trauma [] Long length of stay [x] ICU visit [] Other: Relational/Emotional Strength [] Patient feels connected with others/family/visitors/staff [] Distress [] Loneliness/isolation [] Abandonment Spirituality of Patient [] Person of Ronna [] Attends Sabianism of their Ronna [] Believes in Prayer [] Reads Bible or Jain materials [] There are Spiritual issues to be addressed Application Development Team Lead Interventions [x] Prayer [] Active listening [] Non-anxious presence [] Spiritual/emotional support [] Crisis/trauma care [] Spiritual counseling [] Bereavement support [] Provided bereavement packet [] Provided Bible/devotional materials [] Provided toy/stuffed animal, coloring book to patient or family member [] Provided Communion [] Anointing/[place] [] Salvation [x] Completed spiritual assessment [] Other: Impact on Illness or Injury [] Angry [] Fearful [] Anxious [] Often cries [] Exhaustion [] Unable to work [] Unable to attend sikh [] Unable to walk/stand [] Unable to read [] Unable to drive [] Unable to eat/drink [] Unable to sleep [] Unable to be with family [] Patient intubated [] Other: Summary Time spent with patient
[2022-04-12] MEDS: HYDROcodone-acetaminophen 7.5-325 mg Tablet 1 TAB PO (09:46)
[2022-04-12] MEDS: pantoprazole DR 40 mg Tablet PO (09:46)
[2022-04-12] MEDS: loratadine 10 mg Tablet PO (09:47)
[2022-04-12] MEDS: FUROsemide 20 mg Tablet PO (09:48)
[2022-04-12] MEDS: aspirin 81 mg EC Tablet PO (09:48)
[2022-04-12] MEDS: metoprolol tartrate 50 mg Tablet PO (09:48)
--- NOTE | 2022-04-12 11:37 | PM.PN ---
Subjective Subjective: Patient seen today post cardiac stress test. Yesterday discharge was canceled given patient developing tachycardia on ambulation, none found to have new low EF of 44% on echocardiogram to rule out ischemic work-up. No acute events overnight. Today morning she missed her dose of metoprolol and heart rate went up to 120s again during stress test. Denies any chest pain, nausea, vomiting, headache. Vitals/I&O/Wt Last Vital Signs Temp 96.9 F L 04/11/22 19:45 Pulse 114 H 04/12/22 10:00 Resp 15 04/12/22 10:00 BP 104/58 04/12/22 10:00 Pulse Ox 98 04/12/22 10:00 04/11/22 04/12/22 04/12/22 22:59 06:59 14:59 Intake Total 583 / 583 Output Total 1400 / 1400 Balance -1400 / -1040 583 / 583 Weight last 48 hrs Weight 107.048 kg Weight 108.862 kg Weight 104.326 kg Physical Exam Narrative: General: Alert oriented x3, patient seen sitting up in bed appearing comfortable at this time on esmolol drip. HEENT: Normocephalic, atraumatic, EOMI, breathing room air Cardio: Irregularly irregular, normal S1-S2, Respiratory: Good bilateral air entry, no wheezes no rhonchi appreciated, bibasilar crackles present one third base of lung wolf GI: Abdomen soft, nontender, nondistended, bowel sounds + Behavior: Appropriate and cooperative Extremities: Trace bilateral lower extremity edema no cyanosis Data : 04/12/22 03:57 04/12/22 03:57 A&P Assessment and plan (1) Atrial fibrillation/flutter: With RVR. Target HR less than 100 bpm. C/w metoprolol 50 mg BID. Start on Amio drip as per protocol. Seems to be new diagnosis. Patient denies any past history. We will confirm with cardiology for possible need of cardioversion. Patient is agreeable if needed. Chu-Vasc Score 3 for Sex, HTN, CHF. 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 Echocardiogram done yesterday showed an EF of 45% with diffuse hypokinesia and biatrial enlargement. Compensated for now. Lasix 20 mg oral daily. Strict output charting, daily weights. Status: Acute (3) Positive cardiac stress test: Positive stress test. A1c 5.5. Lipid panel appreciated. Will start on aspirin 81 mg daily, atorvastatin 20 mg nightly. Will consult cardiology for possible cardiac catheterization for further evaluation and management. Status: Acute (4) Pacemaker: Status: Acute (5) ASD (atrial septal defect): Status: Acute Plan Analgesia: Tylenol as needed Glycemic control: Not needed. Nutrition: Cardiac diet. CODE STATUS: Discussed in detail with patient again yesterday. States on admission she was not able to understand the question and she chose DNR/DNI. Going forward she would want to be full code. Change in the system. PUD prophylaxis: Protonix DVT prophylaxis: Full dose Lovenox will suffice for DVT prophylaxis Discharge planning: Plan to discharge home once cleared from cardiology regarding ischemic work-up and rate limiting on a flutter Continue with care at [facility] care Attestations Medical Necessity Statement*: Requires further hospitalization for management of atrial fibrillation/flutter with rapid ventricular response, positive stress test, congestive heart failure Time Spent in Patient Care: Greater than 35 minutes Coding Level of Care Code Acute Bottle Dealer for Chg Fwd Diagnoses Pacemaker Z95.0 ASD (atrial septal defect) Q21.1 Atrial fibrillation/flutter Congestive heart failure due to cardiomyopathy I50.9; I42.9 Positive cardiac stress test R94.39
--- NOTE | 2022-04-12 12:13 | PM.CONSULT ---
Providers/Reason For Consult Consulting Physician/Specialty*: Dr. Orr, Cardiology Reason for Consult*: Abnormal stress test, Cardiomyopathy, atrial flutter with RVR Attending Physician: Shan Paige MD Primary Care Provider: Greta Galeana NP History of Present Illness History of Present Illness Ana Maria Araya is a 51 year old female with PMHx of symptomatic ASD patch repair in 2014 at [facility], h/o CHF (per patient she was told it had improved) s/p PPM implant for bradycardia, hypertension and h/o nephrolithiasis presented to the hospital with complaints of tachycardia and BP running high for at least 1 week. She recently moved to the area from [facility] and has not established her medical care yet. On arrival, she was found to be atrial flutter with RVR. She was started on esmolol gtt and then transitioned to metoprolol. TTE showed moderately decreased LV function. She underwent stress test and was found to have reversible perfusion defect in apical, apical ?lateral, inferolateral and anterolateral [place]. LVEF=37%. She complained of SOB with stress test. I have been asked to evaluate in further management. Review of Systems Const: Denies: fever(s), chills or diaphoresis ENMT: Denies: throat pain, ear or mastoid pain, nasal discharge or nasal congestion Card: Reports: chest pain, palpitations, lightheadedness and dyspnea on exertion; Denies: irregular heart rhythm, edema, syncope or pre-syncope Resp: Denies: dyspnea, productive cough or non-productive cough GI: Denies: abdominal pain, nausea or vomiting : Denies: flank pain, difficulty voiding, dysuria, urinary frequency or urinary urgency Musc: Denies: muscle cramps Skin/Breast: Denies: rash or pruritus Psych: Denies: anxiety Endo: Denies: tired all the time Nirav/Lymph: Denies: petechiae or purpura All/Imm: Denies: throat swelling Medications/Allergies Home Medications Medication Instructions Recorded Confirmed Last Taken Type clonazepam 1 mg tablet (Klonopin) 1 mg PO DAILY PRN 04/10/22 04/10/22 Unknown History hydrocodone 7.5 mg-acetaminophen 1 tab PO Q8H PRN 04/10/22 04/10/22 Unknown History 325 mg tablet lansoprazole 15 mg capsule,delayed 15 mg PO DAILY 04/10/22 04/10/22 04/10/22 History release loratadine 10 mg tablet (Claritin) 10 mg PO DAILY 04/10/22 04/10/22 04/10/22 History losartan 100 mg tablet 100 mg PO DAILY 04/10/22 04/10/22 04/10/22 History quetiapine 50 mg tablet (Seroquel) 50 mg PO BEDTIME 04/10/22 04/10/22 04/09/22 History apixaban 5 mg tablet (Eliquis) 5 mg PO BID #60 tab 04/11/22 Unknown Rx furosemide 20 mg tablet (Lasix) 20 mg PO DAILY #30 tab 04/11/22 Unknown Rx metoprolol tartrate 25 mg tablet 50 mg PO BID@0900,2100 30 Days 04/11/22 Unknown Rx #120 tab Allergies Allergy/AdvReac Type Severity Reaction Status Date / Time Penicillins Allergy ALGY-Hives Verified 04/10/22 15:02 Current Medications Generic Name Dose Route Start Last Admin Trade Name Mackenzie PRN Reason Stop Dose Admin Hydrocodone Bitart/Acetaminophen 1 tab 04/10/22 19:38 04/12/22 09:46 Hydrocodone-Acetaminophen 7.5-325 Mg Tablet PO 1 tab Q8H PRN Administration Pain Aspirin 81 mg 04/11/22 15:15 04/12/22 09:48 Aspirin 81 Mg Ec Tablet PO 81 mg DAILY PAUL Administration Clonazepam 1 mg 04/11/22 15:47 04/11/22 20:30 Clonazepam 1 Mg Tablet PO 1 mg DAILY PRN Administration Anxiety Enoxaparin Sodium 110 mg 04/11/22 16:00 04/12/22 03:51 Enoxaparin 120 Mg/0.8 Ml Syringe SUBCUT 110 mg Q12H PAUL Administration Furosemide 20 mg 04/12/22 08:00 04/12/22 09:48 Furosemide 20 Mg Tablet PO 20 mg DAILY@0800 PAUL Administration Amiodarone HCl 900 mg/ 518 mls @ 0 mls/hr 04/12/22 10:30 04/12/22 10:56 Dextrose/ IV Miscellaneous IV 1 mg/min Supplies .Q0M PAUL 34.53 mls/hr Administration Protocol Per Protocol Loratadine 10 mg 04/11/22 09:00 04/12/22 09:47 Loratadine 10 Mg Tablet PO 10 mg DAILY PAUL Administration Metoprolol Tartrate 50 mg 04/11/22 21:00 04/12/22 09:48 Metoprolol Tartrate 50 Mg Tablet PO 50 mg BID@0900,2100 PAUL Administration Pantoprazole Sodium 40 mg 04/11/22 09:00 04/12/22 09:[address] 40 Mg Tablet PO 40 mg DAILY PAUL Administration Quetiapine Fumarate 50 mg 04/10/22 21:00 04/11/22 20:26 Quetiapine 25 Mg Tablet PO 50 mg BEDTIME PAUL Administration PFSH Acute PFSH: Medical History ASD (atrial septal defect) Atrial fibrillation/flutter Nephrolithiasis Pacemaker Vitals/I&O/Wt Last Vital Signs Temp 96.9 F L 04/11/22 19:45 Pulse 114 H 04/12/22 10:00 Resp 15 04/12/22 10:00 BP 104/58 04/12/22 10:00 Pulse Ox 98 04/12/22 10:00 04/11/22 04/12/22 04/12/22 22:59 06:59 14:59 Intake Total 583 / 583 Output Total 1400 / 1400 Balance -1400 / -1040 583 / 583 Weight last 48 hrs Weight 236 lb Weight 240 lb Weight 230 lb Physical Exam Narrative: GENERAL: obese woman laying in bed in no acute distress HEENT: Extraocular movement intact. No pallor or icterus. NECK: central trachea, No JVD, No carotid bruit. CARDIOVASCULAR SYSTEM: S1-S2 irregular. No murmur rubs or gallops. RESPIRATORY SYSTEM: Chest clear to auscultation. No wheezes rhonchi or rubs heard. No use of accessory muscles. ABDOMEN: Soft, nontender and nondistended. Normal bowel sounds present. EXTREMITIES: No cyanosis, No edema. No signs of chronic venous insufficiency. FRAUD PREVENTION ANALYST: Patient is alert oriented ?3. No focal neurological deficits. SKIN: Normal turgor and temperature. No breakdown, rash or nail changes noted. PSYCH: Normal insight and judgment. No suicidal or homicidal ideations. Data : 04/12/22 03:57 04/12/22 03:57 A&P Assessment and plan (1) Atrial flutter: I will start her on sotalol 80 mg twice a day and continue lovenox -add cardizem 30 mg QID PRN -May consider ARIADNA/CV Status: Acute (2) Positive cardiac stress test: Plan for LHC on -Risks and benefits were discussed with the patients. Possible complications including risk of heart attack stroke and , coronary perforation, arrhythmia, cardiac tamponade in urgent CABG were discussed with the patient as well. Plan is to proceed for the procedure at the earliest. 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 Please feel free to call with questions or concerns. Coding Level of Care Code Acute Superintendent [employer] for Jimmy Syed Diagnoses Atrial flutter I48.92 Positive cardiac stress test R94.39 Congestive heart failure due to cardiomyopathy I50.9; I42.9 Pacemaker Z95.0 Time Spent (min) 35
[2022-04-12] MEDS: sodium chloride 0.9% 1,000 ML 50 ML IV (13:44)
--- NOTE | 2022-04-12 15:12 | NMCV_ITS ---
NM janel perf SPECT r/s* [id number] Ana Maria Araya Age: 51 Gender: F : 1970 Exam Date: 04/12/2022 06:54 Ordering Phys: Shan Paige MD Technologist: JIM Hernandez Exam Location: [facility] Indications: Chest pain STRESS TEST Please see separate stress test report in [facility] for full findings IMAGE PROTOCOL Rest/Stress 1 Lexiscan Day Radiopharmaceutical Dose (mCi) Administration Site Administered by Rest: Tc-99m 10.9 IV Sestamibi Stress:Tc-99m 32.7 IV Sestamibi Rest: 12-Apr-2022 60 Discovery 630 Stress: 12-Apr-2022 30 Discovery 630 0.4mg Lexiscan. Supine position only as patient was unable to lay prone. SPECT RESULTS Technical Quality: Good Raw Data Analysis: Normal Image Corrections: No attenuation or motion correction applied Summed Stress Score: 7 Summed Rest Score: 3 Summed Difference Score: 5 PERFUSION FINDINGS There is a mostly reversible perfusion defect noted in the apical, apical lateral, inferolateral and anterolateral camp[place]de. This is consistent with small sized infarct with large area of bg-infarct ischemia in these territories FUNCTIONAL RESULTS (calculated via Gated SPECT) Stress Image LV EF (%): 37 Stress EDV (mL):105 TID: 1.2 Stress ESV (mL):66 FUNCTIONAL FINDINGS: LV systolic function is moderately reduced with EF of 37%. Moderate global hypokinesis is seen. IMPRESSIONS 1. Abnormal myocardial perfusion imaging with small sized infarct with large area of bg-infarct ischemia seen in the apical, apical lateral, inferolateral and anterolateral campoverde. 2. LV systolic function is moderately reduced. 3. Elevated TID ratio of 1.2 seen that may represent multivessel CAD. Juventino Chavez MD (Electronically Signed) Final Date: 12 April 2022 11:05 S
--- NOTE | 2022-04-12 15:23 | PC.NURSE ---
Attempted to interrogate pacer. Unable to interrogate. Spoke with [employer] and they will have a rep come interrogate.
[2022-04-12] MEDS: sotalol 80 mg Tablet PO (17:07)
--- NOTE | 2022-04-12 19:15 | ECG_ITS ---
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 Measurements Intervals [place] Rate: 85 P: 51 TN: 161 QRS: 39 QRSD: 88 T: 48 QT: 355 QTc: 424 Interpretive Statements SINUS RHYTHM Compared to ECG 04/10/2022 23:05:12 Atrial flutter no longer present T-wave abnormality no longer present Electronically Signed On 04-14-2022 19:17:49 CDT by Catalina Orr M.D. [id number]
[2022-04-12] MEDS: quetiapine 25 mg Tablet 50 MG PO (20:18)
[2022-04-12] MEDS: atorvastatin 40 mg Tablet 20 MG PO (20:19)
[2022-04-13] VITALS (49 sets, daily range): BP systolic 85–129; BP diastolic 45–73; PULSE 68–117; RESP 10–33; TEMP 36.5–36.8; O2SAT 93–99
[2022-04-13] MEDS: sotalol 80 mg Tablet PO ×2 (05:02→16:57)
[2022-04-13] MEDS: enoxaparin 120 mg/0.8 mL Syringe 110 MG SUBCUT ×2 (05:03→16:57)
--- NOTE | 2022-04-13 06:10 | ECG_ITS ---
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 Measurements Intervals [place] Rate: 84 P: 94 MI: 152 QRS: 78 QRSD: 126 T: -82 QT: 383 QTc: 455 Interpretive Statements Possible atrial flutter with a variable block. Demand V pacing ELECTRONIC VENTRICULAR PACEMAKER -- CONTOUR ANALYSIS BASED ON INTRINSIC RHYTHM POSSIBLE RIGHT VENTRICULAR CONDUCTION DELAY [RSR (QR) IN V1/V2] MODERATE T-WAVE ABNORMALITY, CONSIDER ANTEROLATERAL ISCHEMIA [-0.1+ mV T-WAVE IN V3-V6] Compared to ECG 04/12/2022 21:46:41 Myocardial infarct finding now present T-wave abnormality now present Possible ischemia now present Sinus rhythm no longer present Electronically Signed On 04-15-2022 5:52:41 CDT by Michael Fletcher M.D. [id number]
[2022-04-13] MEDS: HYDROcodone-acetaminophen 7.5-325 mg Tablet 1 TAB PO ×2 (06:22→17:00)
[2022-04-13 07:50] LABS: Basophils % 0.6 %; Eosinophils # 0.1 10^3/uL (0.0-0.8); Eosinophils % 1.8 %; Hematocrit 40.8 % (37.0-47.0); Hemoglobin 13.5 g/dL (11.5-15.3); Lymphocytes # 2.1 10^3/uL (0.8-4.8); Lymphocytes % 41.2 %; Mean Corpuscular HGB Conc 33.1 g/dL (30.0-36.0); Mean Corpuscular Hemoglobin 30.3 pg (28.0-34.0); Mean Corpuscular Volume 91.5 fl (81-99); Mean Platelet Volume 11.3 fL (7.4-10.4); Monocytes # 0.4 10^3/uL (0.2-0.9); Neutrophils # 2.44 10^3/uL (1.8-7.7); Neutrophils % 49.2 %; Nucleated Red Blood Cells % 0 %; Platelet Count 185 10^3/cmm (130-400); Red Blood Count 4.46 10^6/uL (4.1-5.3); Red Cell Distribution Width 14.2 % (12.1-15.1)
[2022-04-13] MEDS: loratadine 10 mg Tablet PO (08:06)
[2022-04-13] MEDS: pantoprazole DR 40 mg Tablet PO (08:06)
[2022-04-13] MEDS: aspirin 81 mg EC Tablet PO (08:06)
[2022-04-13] MEDS: FUROsemide 20 mg Tablet PO (08:07)
[2022-04-13 08:23] LABS: Alanine Aminotransferase 10 U/L (0-33); Albumin Level 3.8 g/dL (3.5-5.2); Alkaline Phosphatase 76 IU/L (35-105); Anion Gap 14.5 (5-19); Aspartate Amino Transferase 14 U/L (0-32); Blood Urea Nitrogen 24 mg/dL (6-20); Carbon Dioxide 23 mmol/L (22-29); Chloride 104 mmol/L (98-107); Globulin 3.1 g/dL (1.3-4.6); Glomerular Filtration Rate 52.2 mL/min (90-130); Glucose 119 mg/dL (65-115); Magnesium 1.8 mg/dL (1.7-2.3); Osmolality Calculated 291 mOsm/kg (285-295); Potassium 3.5 mmol/L (3.5-5.1); Sodium 138 mmol/L (136-145); Total Bilirubin 0.4 mg/dL (0.15-1.2); Total Protein 6.9 g/dL (6.6-8.7)
--- NOTE | 2022-04-13 08:45 | P.PN_ITS ---
Subjective Subjective: She remains in atrial flutter. She is tolerating sotalol well. C/o SOB with exertion. Medications: Reviewed: Yes Vitals/I&O/Wt Last Vital Signs Temp 98.2 F 04/13/22 04:30 Pulse 89 04/13/22 08:00 Resp 17 04/13/22 08:00 BP 101/65 04/13/22 08:00 Pulse Ox 96 04/12/22 12:30 04/12/22 04/13/22 04/13/22 22:59 06:59 14:59 Intake Total 720 / 1303 480 / 480 Balance 720 / 603 480 / 480 Weight last 48 hrs Weight 242 lb Weight 236 lb Physical Exam Narrative: GENERAL: obese woman laying in bed in no acute distress HEENT: Extraocular movement intact. No pallor or icterus. NECK: central trachea, No JVD, No carotid bruit. CARDIOVASCULAR SYSTEM: S1-S2 irregular. No murmur rubs or gallops. RESPIRATORY SYSTEM: Chest clear to auscultation. No wheezes rhonchi or rubs heard. No use of accessory muscles. ABDOMEN: Soft, nontender and nondistended. Normal bowel sounds present. EXTREMITIES: No cyanosis, No edema. No signs of chronic venous insufficiency. 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 No focal neurological deficits. SKIN: Normal turgor and temperature. No breakdown, rash or nail changes noted. PSYCH: Normal insight and judgment. No suicidal or homicidal ideations. Data : 04/13/22 07:36 04/13/22 07:36 A&P Assessment and plan (1) Atrial flutter: continue sotalol 80 mg twice a day with close tele and EKG monitoring and continue lovenox -add cardizem 30 mg QID PRN -will plan for ARIADNA/CV Monday Status: Acute (2) Positive cardiac stress test: Records not obtained yet. Per patient normal LHC in 2014 Plan for LHC on -Risks and benefits were discussed with the patients. Possible complications including risk of heart attack stroke and , coronary perforation, arrhythmia, cardiac tamponade in urgent CABG were discussed with the patient as well. Plan is to proceed for the procedure at the earliest. -continue ASA, statin; will add second antiplatelet based on findings of cath Status: Acute (3) Congestive heart failure due to cardiomyopathy: HFrEF -Concern for Ischemic cardiomyopathy based on stress test. -will resume losartan after LHC Status: Acute (4) Pacemaker: Plan to interrogate PPM Status: Acute Plan s/p ASD repair: f/u on records; will assess on ARIADNA, not seen on TTE. Thanks for allowing me to participate in patient's care. Please feel free to call with questions or concerns. 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
--- NOTE | 2022-04-13 08:58 | PC.NURSE ---
ARIADNA tentatively scheduled for tomorrow at noon pending results of heart cath per Dr. Orr. Dr. Peña notified of time and need for anesthesia.
[2022-04-13] MEDS: sodium chloride 0.9% 1,000 ML 50 ML IV (09:28)
--- NOTE | 2022-04-13 10:43 | PC.CHAP ---
Pastoral Care Encounter/Spiritual Assessment Type of Contact [] Declined epoxy specialist visit [] Patient/Family/Request visit [] Outpatient visit [] Follow-up visit [] Physician referral [] Code/Alert [x] Routine visit [] Staff referral [] Actively dying [] Patient sleeping [] Family support [] [] Out of room [] Palliative care [] [] Receiving care in room [] Pre-surgical visit [] Trauma [] Long length of stay [x] ICU visit [] Other: Relational/Emotional Strength [] Patient feels connected with others/family/visitors/staff [] Distress [] Loneliness/isolation [] Abandonment Spirituality of Patient [] Person of Ronna [] Attends Scientologist of their Ronna [] Believes in Prayer [] Reads Bible or Episcopal materials [] There are Spiritual issues to be addressed Air Tank Assembler Interventions [x] Prayer [] Active listening [] Non-anxious presence [] Spiritual/emotional support [] Crisis/trauma care [] Spiritual counseling [] Bereavement support [] Provided bereavement packet [] Provided Bible/devotional materials [] Provided toy/stuffed animal, coloring book to patient or family member [] Provided Communion [] Anointing/[place] [] Salvation [x] Completed spiritual assessment [] Other: Impact on Illness or Injury [] Angry [] Fearful [] Anxious [] Often cries [] Exhaustion [] Unable to work [] Unable to attend mosque [] Unable to walk/stand [] Unable to read [] Unable to drive [] Unable to eat/drink [] Unable to sleep [] Unable to be with family [] Patient intubated [] Other: Summary Time spent with patient
--- NOTE | 2022-04-13 14:36 | P.PN_ITS ---
Subjective Subjective: No acute events overnight. Remains on room air. Remains in a flutter. Started on sotalol by cardiology yesterday. QTC remained stable. Complaining of mild shortness of breath on exertion. Heart rate goes up to low 100s on ambulation. Medications: Reviewed: Yes Vitals/I&O/Wt Last Vital Signs Temp 98.2 F 04/13/22 04:30 Pulse 68 04/13/22 14:00 Resp 19 H 04/13/22 14:00 BP 103/64 04/13/22 14:00 Pulse Ox 96 04/12/22 12:30 04/12/22 04/13/22 04/13/22 22:59 06:59 14:59 Intake Total 720 / 1303 1960 / 1960 Output Total 600 / 600 Balance 720 / 603 1360 / 1360 Weight last 48 hrs Weight 109.769 kg Weight 107.048 kg Physical Exam Narrative: General: Alert oriented x3, patient seen sitting up in bed appearing comfortable at this time on esmolol drip. HEENT: Normocephalic, atraumatic, EOMI, breathing room air Cardio: Irregularly irregular, normal S1-S2, Respiratory: Good bilateral air entry, no wheezes no rhonchi appreciated, b ibasilar crackles present one third base of lung wolf GI: Abdomen soft, nontender, nondistended, bowel sounds + Behavior: Appropriate and cooperative Extremities: Trace bilateral lower extremity edema no cyanosis Data : 04/13/22 07:36 04/13/22 07:36 A&P Assessment and plan (1) Atrial fibrillation/flutter: Appreciate cardiology recommendations. Metoprolol, amiodarone stopped by cardiology. Started on sotalol. Monitor QTC for next few days. Cardizem 30 mg every 6 hourly as needed for heart rate of more than 100 bpm. Plan for possible ARIADNA cardioversion within next 24 hours. Chu-Vasc Score 3 for Sex, HTN, CHF. 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 Echocardiogram done yesterday showed an EF of 45% with diffuse hypokinesia and biatrial enlargement. Compensated for now. Creatinine worsening. With possible need of angiogram in the next 24 hours for now hold off on Lasix. Gentle hydration with normal saline at 50 cc/h for 1 bag valve monitor for fluid overload. Strict output charting, daily weights. Status: Acute (3) Positive cardiac stress test: Positive stress test. A1c 5.5. Lipid panel appreciated. Will start on aspirin 81 mg daily, atorvastatin 20 mg nightly. Plan for cardiac angiogram in a.m. N.p.o. after midnight. Status: Acute (4) Pacemaker: Awaiting interrogation. Status: Acute (5) ASD (atrial septal defect): Status: Acute Plan Analgesia: Tylenol as needed Glycemic control: Not needed. Nutrition: Cardiac diet, n.p.o. after midnight CODE STATUS: Discussed in detail with patient again yesterday. States on admission she was not able to understand the question and she chose DNR/DNI. Going forward she would want to be full code. Change in the system. 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
--- NOTE | 2022-04-13 18:00 | ECG_ITS ---
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 Measurements Intervals [place] Rate: 96 P: DE: QRS: 71 QRSD: 120 T: -1 QT: 371 QTc: 469 Interpretive Statements ATRIAL FLUTTER POSSIBLE RIGHT VENTRICULAR CONDUCTION DELAY [RSR (QR) IN V1/V2] ST DEVIATION AND MODERATE T-WAVE ABNORMALITY, CONSIDER ANTEROLATERAL ISCHEMIA [-0.1+ mV T-WAVE IN V3-V6] ST DEVIATION AND MODERATE T-WAVE ABNORMALITY, CONSIDER INFERIOR ISCHEMIA [-0.1+ mV T-WAVE IN II/aVF] Compared to ECG 04/13/2022 06:10:33 Ventricular-paced complex(es) or rhythm no longer present Myocardial infarct finding no longer present T-wave abnormality still present Possible ischemia still present Electronically Signed On 04-13-2022 22:21:38 CDT by Catalina Orr M.D. [id number]
[2022-04-13] MEDS: CLONazepam 1 mg Tablet PO (20:40)
[2022-04-13] MEDS: quetiapine 25 mg Tablet 50 MG PO (20:40)
[2022-04-13] MEDS: atorvastatin 40 mg Tablet 20 MG PO (20:40)
--- NOTE | 2022-04-13 22:29 | PC.NURSE ---
Pt resting quietly in bed with eyes closed. Skin is dry and pink. Respirations are even and unlabored. Pt hypotensive. Dr. Moura aware. Nursing to notify physician if systolic pressure remains below 90 mmHg.
[2022-04-14] VITALS (38 sets, daily range): BP systolic 92–127; BP diastolic 39–87; PULSE 60–107; RESP 5–25; TEMP 36.4–36.9; O2SAT 77–100
--- NOTE | 2022-04-14 00:13 | PC.NURSE ---
Pt NPO for heart cath this morning.
--- NOTE | 2022-04-14 04:53 | PC.NURSE ---
Will hold AM Lovenox per Dr. Fletcher. Ok to administer Sotalol.
[2022-04-14] MEDS: diphenhydrAMINE 50 mg Capsule PO (05:44)
[2022-04-14] MEDS: sotalol 80 mg Tablet PO ×2 (05:44→17:31)
[2022-04-14 06:06] LABS: Alanine Aminotransferase 12 U/L (0-33); Albumin Level 3.8 g/dL (3.5-5.2); Alkaline Phosphatase 80 IU/L (35-105); Anion Gap 12.9 (5-19); Aspartate Amino Transferase 17 U/L (0-32); Blood Urea Nitrogen 22 mg/dL (6-20); Calcium 9.2 mg/dL (8.5-10.5); Carbon Dioxide 26 mmol/L (22-29); Chloride 104 mmol/L (98-107); Glomerular Filtration Rate 65.8 mL/min (90-130); Glucose 91 mg/dL (65-115); Osmolality Calculated 291 mOsm/kg (285-295); Potassium 3.9 mmol/L (3.5-5.1); Sodium 139 mmol/L (136-145); Total Bilirubin 0.4 mg/dL (0.15-1.2); Total Protein 6.8 g/dL (6.6-8.7)
--- NOTE | 2022-04-14 08:23 | W.PM.OPSUD ---
Surgery/Procedure H&P Update DATE OF PROCEDURE: April 14, 2022 DATE H&P PERFORMED: 04/13/22 H&P UPDATE INFORMATION: I have reviewed H&P completed within last 30 days, I have examined patient prior to procedure and No changes to prior documentation PRIMARY INDICATION FOR PROCEDURE: Abnormal stress test, cardiomyopathy PLANNED PROCEDURE: Operation Date: 04/14/22 08:30 Proposed Procedures p Cardiac Catheterization(Left) - Catalina Orr MD PATIENT REASSESSED PRIOR TO SEDATION, WITH NO CHANGE NOTED: Yes PHYSICAL EXAM: alert, oriented x 3, clear to auscultation bilaterally and regular rate & rhythm AIRWAY EVAL/ANESTHESIA PLAN: normal airway, ASA III, Monitored Anesthesia, Local Anesthesia, Risks, benefits & alternatives of sedation and/or procedure discussed and Patient agrees to continue as planned
--- NOTE | 2022-04-14 08:30 | XACV_ITS ---
Exam Room: [facility] Ht: 175 cm Wt: 110 kg BSA: 2.35 m2 Gender: Female : 1970 Any Known Allergies: Penicillins Exam Priority: Routine Procedure(s): Procedure Description: Diagnostic procedure Procedure Description: Left Heart Catheterization Procedure Description: Coronary Angiography Diagnostic Cath Status: Elective Diagnostic Findings * Angiography shows a right coronary dominant system. * Normal calibre left main with no stenosis. * Medium calibre circumflex artery with no stenosis. * Medium calibre left anterior descending artery that wraps around apex with no stenosis. * Medium calibre right coronary artery with no stenosis. Conclusions 1. Cardiac Catheterization study revealed normal coronaries. Recommendations * Return to inpatient for close monitoring and routine cath care. * Continue medical management and risk factor modification. Left Ventriculography Findings: * Left Ventriculogram not performed to minimize contrast use. Pressures Phase:Rest AO : 103 / 87 ( 90 ) @ 10:05:00 AM 114 / 28 ( 74 ) @ 10:14:00 AM 108 / 75 ( 88 ) @ 10:14:00 AM LV : 110 / -8 / 7 @ 10:14:00 AM Hemodynamic Findings LVEDP is 7 mmHg. Clinical Evaluation EBL: 5mL-10mL Procedural Details Physician notified. Pre-Procedure Time Out. Identified patient by full name and date of as verbalized by the patient/guarantor. Does the consent match the physician's order: Yes. Accurate & Complete Informed Consent: Yes. Inpatient/Outpatient History & Physical on Chart: Yes. If H&P is completed, is and addenduem needed: No; If yes, is the addendum complete: N/A. Visualize and Verify Site with Patient/Guarantor: N/A. Relevant Radiology Images available: Yes. Pre-op teaching completed and patient verbalized understanding. The risks, benefits, and alternatives of sedation and/or procedure were discussed by physician. The patient agrees to continue. Procedure started. Current Diagnosis : Unstable angina. IV Site on Arrival: 20 gauge in the left anticubital. [facility] Clinical Fraility Score: 3: Managing Well. Friction Saw Operator Indications: Suspected CAD. Chest Pain Symptom Assessment: Typical Angina Symptoms. Correct patient, site and procedure confirmed by cath team. Current diagnosis: Chest Pain. PERRLA. 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 Lungs clear x 5 lobes. IV Fluids: 0.9% NaCl at KVO. 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 Pre Procedural Pulses: right radial was 2+. Oxygen started at 2liters/min via nasal canula. right groin was prepped with chloroprep then draped in the usual sterile fashion. right radial was prepped with chloroprep then draped in the usual sterile fashion. Baseline sample Acquired. HR: 79 BPM. Physician arrived. Physician scrubbed in. Immediate Pre-Procedure Time Out. Correct Patient: Yes; Correct Procedure: Yes; Correct Site: Yes; Correct Patient Position: Yes; Correct Supplies: Yes; Dried Flammable Prep: Yes; Blood Products Available: N/A;. Lidocaine 1% infiltrated to the right radial. Arterial access obtained. No blood return from the sheath. Wire and dilator inserted through the sheath to check placement. Unsuccessful placement. Sheath removed. Arterial access obtained. Sheath inserted OTW. Sheath and wire removed. Lidocaine 1% infiltrated to the right radial. Unable to obtain radial access. MD attempting to gain access in the Femoral artery. TR band placed. Lidocaine 1% infiltrated to the right groin. Arterial access obtained. A 5 barbadian JL4 catheter in over wire. Multiple views taken of left coronary artery. Catheter removed over the standard wire. A 5 barbadian JR4 catheter in over wire. Multiple views taken of right coronary artery. EDP Sample taken: LV 110/-9,7; HR: 87 BPM; SpO2: 100%. Pullback taken: LV Off; AO Off; Mean: , Peak to Peak: , SEP: ; HR: 90 BPM; SpO2: 100%. Catheter removed over the standard wire. A Suture was successful obtaining hemostatsis at the Right Femoral artery insertion site. Arterial sheath flushed and connected to tranducer and pressure bag with heparinized saline. Post Procedure: Pulses reassessed and unchanged. PERRLA. 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 No VTE prophylaxis required. Total IV fluids: 109 mL. Medication's Wasted: Lidocaine 1% = 4 mL. Medication's Wasted: Heparin = 1000 units. Medication's Wasted: Nitro = 50 mg. Contrast type used: Omnipaque 300 mgI/mL, 500 mL bottle. Complications: None. Estimated blood loss: 5mL-10mL. Responsiveness - Normal response to verbal stimuli; alert and oriented, PERRLA. Airway - Unaffected, no intervention required; spontaneous ventilation. Circulation: W/N/L, pulses unchanged. Nausea/Vomiting: No. Procedure completed. Vital chart was stopped. Access Site Site: Right Radial artery Sheath Size: 6 Fr Hemostasis Success: Unsuccessful Site: Right Femoral artery Sheath Size: 6 Fr Hemostasis Method: Suture Hemostasis Success: Successful Procedure Medications Start: 8:22 AM Stop: 8:22 AM Medication: Versed Amount: 1 mg Route: I.V. Start: 8:23 AM Stop: 8:23 AM Medication: Fentanyl Amount: 50 mcg Route: I.V. Start: 8:27 AM Stop: 8:27 AM Medication: Versed Amount: 1 mg Route: I.V. Start: 8:31 AM Stop: 8:31 AM Medication: Fentanyl Amount: 25 mcg Route: I.V. Start: 8:35 AM Stop: 8:35 AM Medication: Versed Amount: 1 mg Route: I.V. Start: 8:38 AM Stop: 8:38 AM Medication: Fentanyl Amount: 25 mcg Route: I.V. Start: 8:43 AM Stop: 8:43 AM Medication: Versed Amount: 1 mg Route: I.V. Start: 8:56 AM Stop: 8:56 AM Medication: Versed Amount: 1 mg Route: I.V. Start: 9:12 AM Stop: 9:12 AM Medication: Versed Amount: 1 mg Route: I.V. I, the attending physician, have reviewed and verified all procedure medications. Yes, all medications given per verbal order History/Risk Factors Hypertension: No Dyslipidemia: No Peripheral Arterial Disease (PAD): No Myocardial Infarction (HI): No Obesity: No Renal Disease: No Prior Interventions PCI: No CABG: No Valve Surgery: No Report Signatures Finalized by Catalina Orr MD on 04/14/2022 10:59 AM
[2022-04-14] MEDS: loratadine 10 mg Tablet PO (10:07)
[2022-04-14] MEDS: pantoprazole DR 40 mg Tablet PO (10:07)
[2022-04-14] MEDS: HYDROcodone-acetaminophen 7.5-325 mg Tablet 1 TAB PO ×2 (10:07→17:33)
[2022-04-14] MEDS: sodium chloride 0.9% 1,000 ML 100 ML IV ×2 (10:08→19:55)
--- NOTE | 2022-04-14 12:59 | ANES.PREANE2 ---
Pre-Anesthetic Assessment Height/Weight: Height 1.75 m Weight 109.497 kg Temp Pulse Resp BP Pulse Ox 98.4 F 73 11 L 124/69 95 04/14/22 04:30 04/14/22 12:00 04/14/22 12:00 04/14/22 12:00 04/14/22 07:30 Operation Date: 04/14/22 08:30 Proposed Procedures p Cardiac Catheterization(Left) - Catalina Orr MD Familial anesthetic complications: None Was Beta Reagan taken within 24 hours: N/A Was Clonidine taken within 24 hours: N/A Last intake: > 8 hrs Social No alcohol and No tobacco Exam alert, oriented x 3, clear to auscultation bilaterally and regular rate & rhythm Airway Mallampati: Class III Dentition: partials CV/HEM Atrial Fibrillation, Congestive Heart Failure and Hypertension pacemaker, ASD CONCLUSIONS ?Normal LV size with a diminished ejection fraction of 44%.? ?Diffuse hypokinesia left ventricle. ?Mild biatrial enlargement ?Thickened aortic and mitral valves. ?There is no pericardial effusion. ?There are no intracardiac masses. ?No similar previous studies are available for comparison Anesthetic Plan ASA status: 4 Anesthesia: MAC Medications/Allergies Home Medications Medication Instructions Recorded Confirmed Last Taken Type clonazepam 1 mg tablet (Klonopin) 1 mg PO DAILY PRN 04/10/22 04/10/22 Unknown History hydrocodone 7.5 mg-acetaminophen 1 tab PO Q8H PRN 04/10/22 04/10/22 Unknown History 325 mg tablet lansoprazole 15 mg capsule,delayed 15 mg PO DAILY 04/10/22 04/10/22 04/10/22 History release loratadine 10 mg tablet (Claritin) 10 mg PO DAILY 04/10/22 04/10/22 04/10/22 History losartan 100 mg tablet 100 mg PO DAILY 04/10/22 04/10/22 04/10/22 History quetiapine 50 mg tablet (Seroquel) 50 mg PO BEDTIME 04/10/22 04/10/22 04/09/22 History apixaban 5 mg tablet (Eliquis) 5 mg PO BID #60 tab 04/11/22 Unknown Rx furosemide 20 mg tablet (Lasix) 20 mg PO DAILY #30 tab 04/11/22 Unknown Rx metoprolol tartrate 25 mg tablet 50 mg PO BID@0900,2100 30 Days 04/11/22 Unknown Rx #120 tab Allergies Allergy/AdvReac Type Severity Reaction Status Date / Time Penicillins Allergy ALGY-Hives Verified 04/10/22 15:02 Current Medications Generic Name Dose Route Start Last Admin Trade Name Freq PRN Reason Stop Dose Admin Hydrocodone Bitart/Acetaminophen 1 tab 04/10/22 19:38 04/14/22 10:07 Hydrocodone-Acetaminophen 7.5-325 Mg Tablet PO 1 tab Q8H PRN Administration Pain Atorvastatin Calcium 20 mg 04/12/22 21:00 04/13/22 20:40 Atorvastatin 40 Mg Tablet PO 20 mg BEDTIME PAUL Administration Clonazepam 1 mg 04/11/22 15:47 04/13/22 20:40 Clonazepam 1 Mg Tablet PO 1 mg DAILY PRN Administration Anxiety Enoxaparin Sodium 110 mg 04/11/22 16:00 04/14/22 04:53 Enoxaparin 120 Mg/0.8 Ml Syringe SUBCUT Not Given Q12H PAUL Sodium Chloride 1,000 mls @ 100 mls/hr 04/14/22 09:30 04/14/22 10:08 Sodium Chloride 0.9% IV 100 mls/hr .Q10H PAUL Administration Loratadine 10 mg 04/11/22 09:00 04/14/22 10:07 Loratadine 10 Mg Tablet PO 10 mg DAILY PAUL Administration Pantoprazole Sodium 40 mg 04/11/22 09:00 04/14/22 10:[address] 40 Mg Tablet PO 40 mg DAILY PAUL Administration Quetiapine Fumarate 50 mg 04/10/22 21:00 04/13/22 20:40 Quetiapine 25 Mg Tablet PO 50 mg BEDTIME PAUL Administration Sotalol HCl 80 mg 04/12/22 18:00 04/14/22 05:44 Sotalol 80 Mg Tablet PO 80 mg 0600,1800 PAUL Administration PFSH Anesthesia Medical History ASD (atrial septal defect) Atrial fibrillation/flutter Nephrolithiasis Pacemaker Data Anesthesia : 04/13/22 07:36 04/14/22 04:59 Short CBC 04/13/22 Range/Units 07:36 WBC 5.0 (4.0-10.0) 10^3/uL Hgb 13.5 (11.5-15.3) g/dL Hct 40.8 (37.0-47.0) % MCV 91.5 (81-99) fl Plt Count 185 (130-400) 10^3/cmm Neut % (Auto) 49.2 % Neut # (Auto) 2.44 (1.8-7.7) 10^3/uL BMP 04/13/22 04/14/22 07:36 04:59 Sodium 138 139 Potassium 3.5 3.9 Chloride 104 104 Carbon Dioxide 23 26 BUN 24 H 22 H Creatinine 1.1 H 0.9 Glucose 119 H 91 Calcium 9.0 9.2 Liver Function 04/13/22 04/14/22 Range/Units 07:36 04:59 Total Bilirubin 0.4 0.4 (0.15-1.2) mg/dL AST 14 17 (0-32) U/L ALT 10 12 (0-33) U/L Alkaline Phosphatase 76 80 (35-105) IU/L Albumin 3.8 3.8 (3.5-5.2) g/dL Cardiac Studies: Echocardiogram 04/10/22 Sestamibi Stress Test (Cardiology) 04/11/22
--- NOTE | 2022-04-14 13:46 | P.PN_ITS ---
Subjective Subjective: patient was seen multiple times during the day Medications: Reviewed: Yes Medication Review Details: Current Medications Acetaminophen (Acetaminophen 325 Mg Tablet) 650 mg PO Q6H PRN PRN Reason: MILD PAIN Hydrocodone Bitart/Acetaminophen (Hydrocodone-Acetaminophen 7.5-325 Mg Tablet) 1 tab PO Q8H PRN PRN Reason: Pain Last Admin: 04/14/22 10:07 Dose: 1 tab Documented by: Al Hydrox/Mg Hydrox/Simethicone (Fskn-Qbk-Xsanvmpkf-Delmi 30 Ml Udc) 30 ml PO Q15M PRN PRN Reason: INDIGESTION Atorvastatin Calcium (Atorvastatin 40 Mg Tablet) 20 mg PO BEDTIME [facility] Last Admin: 04/13/22 20:40 Dose: 20 mg Documented by: Atropine Sulfate (Atropine 1 Mg/Ml Sdv 1 Ml) 0.5 mg IVP PRN PRN PRN Reason: Symptomatic bradycardia Clonazepam (Clonazepam 1 Mg Tablet) 1 mg PO DAILY PRN PRN Reason: Anxiety Last Admin: 04/13/22 20:40 Dose: 1 mg Documented by: Diltiazem HCl (Diltiazem 30 Mg Tablet) 30 mg PO Q6H PRN PRN Reason: tachycardia Enoxaparin Sodium (Enoxaparin 120 Mg/0.8 Ml Syringe) 110 mg SUBCUT Q12H [facility] Last Admin: 04/14/22 04:53 Dose: Not Given Documented by: Sodium Chloride (Sodium Chloride 0.9%) 1,000 mls @ 100 mls/hr IV .Q10H [facility] Last Admin: 04/14/22 10:08 Dose: 100 mls/hr Documented by: Loratadine (Loratadine 10 Mg Tablet) 10 mg PO DAILY [facility] Last Admin: 04/14/22 10:07 Dose: 10 mg Documented by: Magnesium Hydroxide (Magnesium Hydroxide 30 Ml Udc) 30 ml PO DAILY PRN PRN Reason: CONSTIPATION Naloxone HCl (Naloxone 0.4 Mg/Ml Sdv) 0.1 mg IVP Q2M PRN PRN Reason: RESPIRATORY RATE < 8/MIN Nitroglycerin (Nitroglycerin 0.4 Mg Sublingual Tablet) 0.4 mg SUBLINGUAL Q5M PRN PRN Reason: CHEST PAIN Ondansetron HCl (Ondansetron 2 Mg/Ml Sdv 2 Ml) 4 mg IVP Q6H PRN PRN Reason: NAUSEA AND VOMITING Ondansetron HCl (Ondansetron 2 Mg/Ml Sdv 2 Ml) 4 mg IVP Q2M PRN PRN Reason: NAUSEA Pantoprazole Sodium (Pantoprazole Dr 40 Mg Tablet) 40 mg PO DAILY [facility] Last Admin: 04/14/22 10:07 Dose: 40 mg Documented by: Quetiapine Fumarate (Quetiapine 25 Mg Tablet) 50 mg PO BEDTIME [facility] Last Admin: 04/13/22 20:40 Dose: 50 mg Documented by: Sotalol HCl (Sotalol 80 Mg Tablet) 80 mg PO 0600,1800 [facility] Last Admin: 04/14/22 05:44 Dose: 80 mg Documented by: Vitals/I&O/Wt Last Vital Signs Temp 98.4 F 04/14/22 04:30 Pulse 73 04/14/22 12:00 Resp 11 L 04/14/22 12:00 BP 124/69 04/14/22 12:00 Pulse Ox 95 04/14/22 07:30 04/13/22 04/14/22 04/14/22 22:59 06:59 14:59 Intake Total 480 / 2440 1240 / 3680 Output Total 800 / 1400 800 / 2200 Balance -320 / 1040 440 / 1480 Weight last 48 hrs Weight 241 lb 6.4 oz Weight 242 lb Physical Exam Narrative: GENERAL: obese woman laying in bed in no acute distress HEENT: Extraocular movement intact. No pallor or icterus. NECK: central trachea, No JVD, No carotid bruit. CARDIOVASCULAR SYSTEM: S1-S2 irregular. No murmur rubs or gallops. RESPIRATORY SYSTEM: Chest clear to auscultation. No wheezes rhonchi or rubs heard. No use of accessory muscles. ABDOMEN: Soft, nontender and nondistended. Normal bowel sounds present. EXTREMITIES: No cyanosis, No edema. No signs of chronic venous insufficiency. 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 No focal neurological deficits. SKIN: Normal turgor and temperature. No breakdown, rash or nail changes noted. PSYCH: Normal insight and judgment. No suicidal or homicidal ideations. Data : 04/13/22 07:36 04/14/22 04:59 A&P Assessment and plan (1) Atrial flutter: continue sotalol 80 mg twice a day with close tele and EKG monitoring and continue lovenox -add cardizem 30 mg QID PRN -will plan for ARIADNA/CV today Status: Acute (2) Positive cardiac stress test: Records not obtained yet. Per patient normal LHC in 2015 -normal coronaries on C today. Status: Acute (3) Congestive heart failure due to cardiomyopathy: HFrEF -Concern for Ischemic cardiomyopathy based on stress test. -will resume losartan after LHC Status: Acute (4) Pacemaker: [employer] PPM interrogated and she had dual chamber pacemaker set at DDDR. A paced 51% of the time and V paced 4.2% of the time. AT A. fib burden of 39%. Normal lead impedances and capture threshold. It seems like patient has been h aving runs of high ventricular rate since January 28, 2022. I do not have the EGM's available from prior episodes but episodes from April 09 April 06 and March 21 seems to be in atrial flutter. -Device implanted by Dr. Aurelio Florian on 03/12/2022 with a battery life of 9.6 years. Status: Acute Plan s/p ASD repair: f/u on records; will assess on ARIADNA, not seen on TTE. Thanks for allowing me to participate in patient's care. Please feel free to call with questions or concerns. Attestations Medical Necessity Statement*: needs hospital stay for cardiomyoapthy and symptomatic atrial flutter. Procedures Time out/Consent Time Out Performed: Yes Consent for Procedure: Consent obtained from patient Procedure Narrative ARIADNA Procedure note Indication: Symptomatic atrial flutter Sedation: Propofol by anesthesia Procedure was explained to the patient in detail and informed consent was obtained. Timeout was called. After achieving adequate sedation, the probe was inserted on first attempt. No blood on the probe post procedure. Prelim report: Normal left ventricle size and systolic function. No left atrial or left atrial appendage mass or thrombus visualized. No ASD or PFO identified. Full report to follow. Cardioversion procedure note. Indication: Symptomatic atrial flutter Anticoagulation: Lovenox Sedation: Propofol by anesthesia After ensuring no left atrial/left atrial appendage thrombus; pads were placed anteroposteriorly. She received 150 J of synchronized biphasic shock ?1 with yazidism of A paced rhythm. Patient tolerated the procedure well. Recovery: In unit Coding Level of Care Code Acute Rate And Cost Analyst for Jimmy Syed Diagnoses Atrial flutter I48.92 Positive cardiac stress test R94.39 Congestive heart failure due to cardiomyopathy I50.9; I42.9 Pacemaker Z95.0
--- NOTE | 2022-04-14 15:00 | USCV_ITS ---
Ana Maria Araya Age: 51 Gender: F : 1970 Exam Date: 04/14/2022 14:43 Ordering Phys: Catalina Orr MD ([email or web address]) Technologist: Maricarmen Castillo Exam Location: [facility] [place] Indication: Symptomatic atrial flutter BP: 128 / 106 HR: 87 Rhythm: Sinus Technical Quality: Adequate MEASUREMENTS (Male / Female) Normal Values DOPPLER TR Peak Velocity 251.0 cm/s TR Peak Gradient 25.2 mmHg Medications Patient given IV sedation by anesthesia service, for details please refer to the anesthesia report. Complications Patient tolerated procedure well. Proc. Components The patient was brought to the ARIADNA examination room in a fasting state after obtaining an informed consent. The ARIADNA probe was passed into the posterior pharynx , mid-esophagus, distal esophagus, and gastric fundus. FINDINGS Left Ventricle Normal left ventricular cavity size. Mildly decreased left ventricular systolic function. Left ventricular ejection fraction is estimated at 40-45 %. Mild global hypokinesis. Right Ventricle Midly increased right ventricular size and mildly decreased systolic function. Pacemaker wire visualized in the right ventricle. Right Atrium Mildly increased right atrial size. Pacemaker wire in the right atrial cavity. Left Atrium Normal left atrial size. LA Appendage Normal left atrial appendage. Decreased flow velocities in the left atrial appendage. No thrombus visualized in the left atrial appendage. IA Septum s/p primum ASD repair. No residual ASD by color doppler and bubble study. Mitral Valve Structurally normal mitral valve. No mitral valve stenosis. Trace mitral valve regurgitation. Aortic Valve Structurally normal trileaflet aortic valve. No aortic valve stenosis. No aortic valve regurgitation. Tricuspid Valve Structurally normal tricuspid valve. No tricuspid valve stenosis. Mild tricuspid valve regurgitation. Pulmonic Valve Structurally normal pulmonic valve. No pulmonary valve stenosis. Trace pulmonary valve regurgitation. Pericardium No pericardial effusion. Aorta Normal size aortic root and proximal ascending aorta. No aortic dilation, aneurysm or dissection. CONCLUSIONS 1. Normal left ventricular cavity size. Mildly decreased left ventricular systolic function. Left ventricular ejection fraction is estimated at 40-45 %. Mild global hypokinesis. 2. s/p primum ASD repair. No residual ASD by color doppler and bubble study. 3. Midly increased right ventricular size and mildly decreased systolic function. 4. No LA/JUDE thrombus. Catalina Orr MD (Electronically Signed) Final Date: 19 April 2022 21:04 S
--- NOTE | 2022-04-14 15:02 | P.PN_ITS ---
Subjective Subjective: No acute vents overnight. Today morning seen postcardiac catheterization. 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 Possible plan for cardioversion later in the day today depending on availability. Otherwise patient has remained hemodynamically stable and afebrile. Continues to remain on room air. Medications: Reviewed: Yes Vitals/I&O/Wt Last Vital Signs Temp 98.4 F 04/14/22 04:30 Pulse 81 04/14/22 14:00 Resp 15 04/14/22 14:00 BP 118/76 04/14/22 14:00 Pulse Ox 95 04/14/22 07:30 04/14/22 04/14/22 04/14/22 06:59 14:59 22:59 Intake Total 1240 / 3680 Output Total 800 / 2200 Balance 440 / 1480 Weight last 48 hrs Weight 109.497 kg Weight 109.769 kg Physical Exam Narrative: General: Alert oriented x3, patient seen sitting up in bed appearing comfortable at this time on esmolol drip. HEENT: Normocephalic, atraumatic, EOMI, breathing room air Cardio: Irregularly irregular, normal S1-S2, Respiratory: Good bilateral air entry, no wheezes no rhonchi appreciated, bibasilar crackles present one third base of lung wolf GI: Abdomen soft, nontender, nondistended, bowel sounds + Behavior: Appropriate and cooperative Extremities: Trace bilateral lower extremity edema no cyanosis Data : 04/13/22 07:36 04/14/22 04:59 A&P Assessment and plan (1) Atrial fibrillation/flutter: Appreciate cardiology recommendations. Metoprolol, amiodarone stopped by cardiology. Started on sotalol. Monitor QTC for next few days. Cardizem 30 mg every 6 hourly as needed for heart rate of more than 100 bpm. Plan for possible ARIADNA cardioversion within next 24 hours. Chu-Vasc Score 3 for Sex, HTN, CHF. 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 Echocardiogram done yesterday showed an EF of 45% with diffuse hypokinesia and biatrial enlargement. Compensated for now. Creatinine worsening. With possible need of angiogram in the next 24 hours for now hold off on Lasix. Gentle hydration with normal saline at 50 cc/h for 1 bag valve monitor for fluid overload. Strict output charting, daily weights. Status: Acute (3) Positive cardiac stress test: Positive stress test. A1c 5.5. Lipid panel appreciated. Will start on aspirin 81 mg daily, atorvastatin 20 mg nightly. Plan for cardiac angiogram in a.m. N.p.o. after midnight. Status: Acute (4) Pacemaker: Awaiting interrogation. Status: Acute (5) ASD (atrial septal defect): Status: Acute Plan Analgesia: Tylenol as needed Glycemic control: Not needed. Nutrition: N.p.o., cardiac diet post cardioversion CODE STATUS: Discussed in detail with patient again yesterday. States on admission she was not able to understand the question and she chose DNR/DNI. Going forward she would want to be full code. Change in the system. PUD prophylaxis: Protonix DVT prophylaxis: Full dose Lovenox will suffice for DVT prophylaxis Discharge planning: Plan to discharge home once cleared from cardiology regarding ischemic work-up and rate limiting on a flutter Continue with care at [facility] care Plan for the day: Continue with sotalol. Monitor QTC. Possible plan for cardioversion/ARIADNA today depending on availability for persistent a flutter. Continue with full dose Lovenox. Post cardiac catheterization care. Continue with aspirin, statin. Hold off on any Lasix or fluid for now. Attestations Medical Necessity Statement*: Requires further hospitalization for ischemic work-up given positive stress test, electrocardioversion in setting of persistent atrial flutter, cardiomyopathy Time Spent in Patient Care: Greater than 35 minutes Coding Level of Care Code Acute Operator Technician for Jimmy Fwd Diagnoses Atrial fibrillation/flutter Congestive heart failure due to cardiomyopathy I50.9; I42.9 Positive cardiac stress test R94.39 Pacemaker Z95.0 ASD (atrial septal defect) Q21.1
[2022-04-14] MEDS: enoxaparin 120 mg/0.8 mL Syringe 110 MG SUBCUT (15:38)
--- NOTE | 2022-04-14 16:24 | PC.NURSE ---
ARIADNA/cardioversion completed per MD, anesthesia and US. Cardioversion completed with one shock at 150 joules, converting pt from atrial flutter to NSR. VSS. No issues noted. Pt resting in bed at this time, AAO. Will monitor.
--- NOTE | 2022-04-14 18:30 | ECG_ITS ---
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 Measurements Intervals [place] Rate: 61 P: -63 IL: 199 QRS: 76 QRSD: 95 T: 123 QT: 429 QTc: 435 Interpretive Statements ELECTRONIC ATRIAL PACEMAKER MODERATE T-WAVE ABNORMALITY, CONSIDER ANTEROLATERAL ISCHEMIA [-0.1+ mV T-WAVE IN V3-V6] Compared to ECG 04/13/2022 17:58:51 Atrial flutter no longer present T-wave abnormality still present Possible ischemia still present Electronically Signed On 04-15-2022 20:48:55 CDT by Juventino Chavez M.D. [id number]
--- NOTE | 2022-04-14 18:34 | PC.NURSE ---
Pt transported to room 275 with in tow. Tolerated well. Redness and slight swelling noted to IV site from yesterday. Educated to elevate arm for the night. No issues noted.
[2022-04-14] MEDS: atorvastatin 40 mg Tablet 20 MG PO (19:52)
[2022-04-14] MEDS: CLONazepam 1 mg Tablet PO (19:53)
[2022-04-14] MEDS: quetiapine 25 mg Tablet 50 MG PO (19:53)
[2022-04-15] VITALS (9 sets, daily range): BP systolic 86–121; BP diastolic 46–67; PULSE 60–67; RESP 14–18; TEMP 36.8–36.9; O2SAT 90–98
[2022-04-15 04:30] LABS: Basophils % 0.5 %; Hematocrit 36.3 % (37.0-47.0); Hemoglobin 12.1 g/dL (11.5-15.3); Lymphocytes # 1.8 10^3/uL (0.8-4.8); Mean Corpuscular HGB Conc 33.3 g/dL (30.0-36.0); Mean Corpuscular Hemoglobin 30.5 pg (28.0-34.0); Mean Corpuscular Volume 91.4 fl (81-99); Mean Platelet Volume 11.4 fL (7.4-10.4); Monocytes # 0.3 10^3/uL (0.2-0.9); Monocytes % 6.6 %; Neutrophils # 1.99 10^3/uL (1.8-7.7); Neutrophils % 48.9 %; Nucleated Red Blood Cells % 0 %; Platelet Count 177 10^3/cmm (130-400); Red Blood Count 3.97 10^6/uL (4.1-5.3); Red Cell Distribution Width 14.2 % (12.1-15.1); White Blood Count 4.1 10^3/uL (4.0-10.0)
[2022-04-15 04:56] LABS: Blood Urea Nitrogen 18 mg/dL (6-20); Calcium 9.2 mg/dL (8.5-10.5); Carbon Dioxide 24 mmol/L (22-29); Chloride 104 mmol/L (98-107); Glomerular Filtration Rate 75.3 mL/min (90-130); Glucose 86 mg/dL (65-115); Osmolality Calculated 289 mOsm/kg (285-295); Sodium 139 mmol/L (136-145)
[2022-04-15] MEDS: sotalol 80 mg Tablet PO (05:01)
[2022-04-15] MEDS: enoxaparin 120 mg/0.8 mL Syringe 110 MG SUBCUT (05:03)
[2022-04-15] MEDS: sodium chloride 0.9% 1,000 ML 100 ML IV (05:03)
--- NOTE | 2022-04-15 06:00 | ECG_ITS ---
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 Measurements Intervals [place] Rate: 60 P: -69 ND: 214 QRS: 72 QRSD: 106 T: 91 QT: 454 QTc: 454 Interpretive Statements ELECTRONIC ATRIAL PACEMAKER MODERATE T-WAVE ABNORMALITY, CONSIDER ANTERIOR ISCHEMIA [-0.1+ mV T-WAVE IN V3/V4] Compared to ECG 04/14/2022 18:34:09 No significant changes Electronically Signed On 04-15-2022 20:47:28 CDT by Juventino Chavez M.D. [id number]
[2022-04-15] MEDS: HYDROcodone-acetaminophen 7.5-325 mg Tablet 1 TAB PO (07:57)
[2022-04-15] MEDS: loratadine 10 mg Tablet PO (07:57)
[2022-04-15] MEDS: pantoprazole DR 40 mg Tablet PO (07:58)
--- NOTE | 2022-04-15 10:45 | P.PN_ITS ---
Subjective Subjective: Feels well, no complaints s/p LHC and ARIADNA/CV Medications: Reviewed: Yes Vitals/I&O/Wt Last Vital Signs Temp 98.3 F 04/15/22 07:06 Pulse 61 04/15/22 07:06 Resp 14 04/15/22 07:06 BP 110/67 04/15/22 07:46 Pulse Ox 98 04/15/22 07:46 04/14/22 04/15/22 04/15/22 22:59 06:59 14:59 Intake Total 1360 / 1360 1390 / 2750 360 / 360 Output Total 500 / 500 Balance 860 / 860 1390 / 2250 360 / 360 Weight last 48 hrs Weight 249 lb 14.4 oz Weight 241 lb 6.4 oz Physical Exam Narrative: GENERAL: obese woman laying in bed in no acute distress HEENT: Extraocular movement intact. No pallor or icterus. NECK: central trachea, No JVD, No carotid bruit. CARDIOVASCULAR SYSTEM: S1-S2 regular. No murmur rubs or gallops. RESPIRATORY SYSTEM: Chest clear to auscultation. No wheezes rhonchi or rubs heard. No use of accessory muscles. ABDOMEN: Soft, nontender and nondistended. Normal bowel sounds present. EXTREMITIES: No cyanosis, No edema. No signs of chronic venous insufficiency. 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 No focal neurological deficits. SKIN: Normal turgor and temperature. No breakdown, rash or nail changes noted. PSYCH: Normal insight and judgment. No suicidal or homicidal ideations. Const: COMMON NORMALS: alert Resp: COMMON NORMALS: clear to auscultation bilaterally AUSCULTATION: clear to auscultation bilaterally Neuro: SENSORIUM/ORIENTATION: Yes alert Data : 04/15/22 03:55 04/15/22 03:55 A&P Assessment and plan (1) Atrial flutter: continue sotalol 80 mg twice a day -change to Eliquis 5 mg BID on discharge. -Follow up with Cassidy in 1 week and with me in 2 months Status: Acute (2) Positive cardiac stress test: Normal LHC in 2015 -normal coronaries on [facility] yesterday via rigth femoral approach Status: Acute (3) Congestive heart failure due to cardiomyopathy: Tachycardiac induced cardiomyopathy (LV function moderately decreased LV function) -BP soft -f/u echo in 3 months Status: Acute (4) Pacemaker: [employer] PPM interrogated and she had dual chamber pacemaker set at DDDR. A paced 51% of the time and V paced 4.2% of the time. AT A. fib burden of 39%. Normal lead impedances and capture threshold. It seems like patient has been having runs of high ventricular rate since January 28, 2022. I do not have the EGM's available from prior episodes but episodes from April 09 April 06 and March 21 seems to be in atrial flutter. -Device implanted by Dr. Aurelio Florian on 03/12/2022 with a battery life of 9.6 years. Status: Acute Plan s/p ASD repair: Records reviewed Thanks for allowing me to participate in patient's care. Please feel free to call with questions or concerns. Attestations Medical Necessity Statement*: stable to be discharged. Coding Level of Care Code Acute Pipe Manufacture Supervisor for Jimmy Fwd Exam Expanded Problem Focused Diagnoses Atrial flutter I48.92 Positive cardiac stress test R94.39 Congestive heart failure due to cardiomyopathy I50.9; I42.9 Pacemaker Z95.0
--- NOTE | 2022-04-15 11:58 | PM.DCS ---
Discharge Providers Date of Admission: 04/10/22 16:41 Date of Discharge: April 15, 2022 Attending Provider at Admission: Sally Carrington MD Attending Provider at Discharge: Shan Paige MD Consults: Cardiology: Dr. Orr Primary Care Provider: Greta Galeana NP Diagnoses at Discharge Discharge Diagnosis (1) Atrial flutter: Status: Acute (2) Positive cardiac stress test: Status: Acute (3) Congestive heart failure due to cardiomyopathy: Status: Acute Permanent problem details: Systolic. (4) Pacemaker: Status: Acute Reason for Visit Reason for Visit: chest pain Hospital Course Hospital Course Ana Maria Araya is a 51 year old female with PMHx of symptomatic ASD patch repair in 2014 at [facility], h/o CHF (per patient she was told it had improved) s/p PPM implant for bradycardia, hypertension and h/o nephrolithiasis presented to the hospital with complaints of tachycardia and BP running high for at least 1 week. She recently moved to the area from [facility] and has not established her medical care yet. Patient was admitted for further evaluation and management. She was started on esmolol drip which was later transitioned over to metoprolol and then changed over to sotalol while monitoring her QTC. Echocardiogram was done which showed a new EF of 45%. Patient continues to have occasional episodes of bursts of tachycardia. Because of new low EF to rule out ischemic cause she underwent Lexiscan stress test on 04/28 which was found to have reversible perfusion defect in apical, apical lateral, inferior lateral anterior lateral [place] with EF of 37%. Patient was also complaining of shortness of breath during stress test. For further evaluation management cardiology was consulted and she underwent cardiac angiogram which was consistent with nonobstructive CAD. Her pacemaker was interrogated. Because of persistent a flutter patient underwent successful ARIADNA and cardioversion on 04/14. Patient is currently at paced rhythm. She has been discharged hemodynamically stable condition on oral sotalol 80 mg twice daily with advised to follow-up with Cassidy Burleson in [address] Orr from cardiology in 2 months. Physical Exam Narrative: General: Alert oriented x3, patient seen sitting up in bed appearing comfortable at this time on esmolol drip. HEENT: Normocephalic, atraumatic, EOMI, breathing room air Cardio: Irregularly irregular, normal S1-S2, Respiratory: Good bilateral air entry, no wheezes no rhonchi appreciated, bibasilar crackles present one third base of lung wolf GI: Abdomen soft, nontender, nondistended, bowel sounds + Behavior: Appropriate and cooperative Extremities: Trace bilateral lower extremity edema no cyanosis Discharge Data Studies Completed and Pending Completed Studies During Hospitalization Category Date Time Status [employer] request for service Routine Exams 04/14/22 08:30 Completed Sestamibi Stress Test Request Routine Exams 04/11/22 15:11 Draft XR chest 1V portable [id number] Stat Exams 04/10/22 15:08 Completed NM janel perf SPECT r/s* [id number] Routine Nuc Med 04/12/22 15:12 Completed CV. echo complete* 02500 Routine Ultrasound 04/10/22 17:34 Completed Pending at discharge Category Date Time Status CV. echo transesophageal [id number] Routine Ultrasound 04/14/22 15:00 Taken Radiology Impressions Chest X-Ray 04/10/22 15:08 IMPRESSION: No acute findings. Echocardiogram: CONCLUSIONS ?Normal LV size with a diminished ejection fraction of 44%.? ?Diffuse hypokinesia left ventricle. ?Mild biatrial enlargement ?Thickened aortic and mitral valves. ?There is no pericardial effusion. ?There are no intracardiac masses. ?No similar previous studies are available for comparison ?Dr Michael Fletcher MD [facility] ?(Electronically Signed) ?Final Date:? ? ? 11 April 2022 ? 14:56 Laboratory Results WBC 4.1 10^3/uL (4.0-10.0) 04/15/22 03:55 RBC 3.97 10^6/uL (4.1-5.3) L 04/15/22 03:55 Hgb 12.1 g/dL (11.5-15.3) 04/15/22 03:55 Hct 36.3 % (37.0-47.0) L 04/15/22 03:55 MCV 91.4 fl (81-99) 04/15/22 03:55 MCH 30.5 pg (28.0-34.0) 04/15/22 03:55 MCHC 33.3 g/dL (30.0-36.0) 04/15/22 03:55 RDW 14.2 % (12.1-15.1) 04/15/22 03:55 Plt Count 177 10^3/cmm (130-400) 04/15/22 03:55 MPV 11.4 fL (7.4-10.4) H 04/15/22 03:55 Neut % (Auto) 48.9 % 04/15/22 03:55 Lymph % (Auto) 43.0 % 04/15/22 03:55 [place] % (Auto) 6.6 % 04/15/22 03:55 Eos % (Auto) 1.0 % 04/15/22 03:55 Baso % (Auto) 0.5 % 04/15/22 03:55 Neut # (Auto) 1.99 10^3/uL (1.8-7.7) 04/15/22 03:55 Lymph # (Auto) 1.8 10^3/uL (0.8-4.8) 04/15/22 03:55 [place] # (Auto) 0.3 10^3/uL (0.2-0.9) 04/15/22 03:55 Eos # (Auto) 0.0 10^3/uL (0.0-0.8) 04/15/22 03:55 Baso # (Auto) 0.0 10^3/uL (0.0-0.1) 04/15/22 03:55 Nucleated RBC % (auto) 0 % 04/15/22 03:55 Nucleated RBCs # 0.0 /100WBC 04/15/22 03:55 Sodium 139 mmol/L (136-145) 04/15/22 03:55 Potassium 4.0 mmol/L (3.5-5.1) 04/15/22 03:55 Chloride 104 mmol/L (98-107) 04/15/22 03:55 Carbon Dioxide 24 mmol/L (22-29) 04/15/22 03:55 Anion Gap 15.0 (5-19) 04/15/22 03:55 BUN 18 mg/dL (6-20) 04/15/22 03:55 Creatinine 0.8 mg/dL (0.5-0.9) 04/15/22 03:55 GFR Calculation 75.3 mL/min (90-130) L 04/15/22 03:55 Glucose 86 mg/dL (65-115) 04/15/22 03:55 Estimat Average Glucose 111 04/12/22 05:55 Hemoglobin A1c 5.5 % (4.0-6.0) 04/12/22 05:55 Calculated Osmolality 289 mOsm/kg (285-295) 04/15/22 03:55 Calcium 9.2 mg/dL (8.5-10.5) 04/15/22 03:55 Magnesium 1.8 mg/dL (1.7-2.3) 04/13/22 07:36 Iron 74 ug/dL (37-145) 04/11/22 03:49 TIBC 342 mcg/dl 04/11/22 03:49 % Saturation 21.6 % (20-50) 04/11/22 03:49 Unsat Iron Binding 268 ug/dL (112-347) 04/11/22 03:49 Total Bilirubin 0.4 mg/dL (0.15-1.2) 04/14/22 04:59 AST 17 U/L (0-32) 04/14/22 04:59 ALT 12 U/L (0-33) 04/14/22 04:59 Alkaline Phosphatase 80 IU/L (35-105) 04/14/22 04:59 Troponin T Baseline 20 ng/L (0-10) H 04/10/22 15:15 Troponin T 120 Minute 18.43 ng/L (0-10) H 04/10/22 17:02 Delta Troponin T -1.57 ABS# (0-10) L 04/10/22 17:02 Troponin T Hi Sens 6Hr 19.71 ng/L (0-10) H 04/10/22 21:00 Troponin T Hi Sens 6Hr Delta -0.29 ng/L (0-12) L 04/10/22 21:00 NT-Pro-B Natriuret Pep 5202 pg/mL (0-125) H 04/10/22 15:15 Total Protein 6.8 g/dL (6.6-8.7) 04/14/22 04:59 Albumin 3.8 g/dL (3.5-5.2) 04/14/22 04:59 Globulin 3.0 g/dL (1.3-4.6) 04/14/22 04:59 Triglycerides 126 mg/dL (0-150) 04/12/22 03:57 Triglycerides Cancelled 04/12/22 03:57 Cholesterol 143 mg/dL (0-200) 04/12/22 03:57 Cholesterol Cancelled 04/12/22 03:57 LDL Cholesterol, Calc 68 mg/dL (50-129) 04/12/22 03:57 LDL Cholesterol, Calc Cancelled 04/12/22 03:57 Total VLDL Cholesterol 25 mg/dL (0-30) 04/12/22 03:57 Total VLDL Cholesterol Cancelled 04/12/22 03:57 HDL Cholesterol 50 mg/dL (60-100) L 04/12/22 03:57 HDL Cholesterol Cancelled 04/12/22 03:57 Cholesterol/HDL Ratio 2.86 mg/dL (0.0-4.40) 04/12/22 03:57 Cholesterol/HDL Ratio Cancelled 04/12/22 03:57 TSH 1.72 uIU/mL (0.27-4.20) 04/10/22 15:15 TSH Cancelled 04/10/22 15:15 Urine Color Dark yellow (Yellow) 04/10/22 16:29 Urine Appearance Hazy (CLEAR) A 04/10/22 16:29 Urine pH 5 (5-7) 04/10/22 16:29 Ur Specific [place] 1.030 (1.005-1.030) 04/10/22 16:29 Urine Protein Neg (Negative) 04/10/22 16:29 Urine Glucose (UA) Norm (Normal) 04/10/22 16:29 Urine Ketones Negative (Negative) 04/10/22 16:29 Urine Blood Neg (Negative) 04/10/22 16:29 Urine Nitrate Negative (Negative) 04/10/22 16:29 Urine Bilirubin 1+ (Negative) H 04/10/22 16:29 Urine Urobilinogen Norm mg/dL (Negative) 04/10/22 16:29 Ur Leukocyte Esterase Trace (Negative) H 04/10/22 16:29 Urine RBC 0-4 /hpf (0-2) H 04/10/22 16:29 Urine WBC 10-15 /hpf (0-5) H 04/10/22 16:29 Ur Squamous Epith Cells 10-15 /hpf (0-5) H 04/10/22 16:29 Amorphous Sediment Not Reportable 04/10/22 16:29 Urine Bacteria Trace /hpf (NONE) 04/10/22 16:29 Additional Data from Hospital Stay Pacemaker interrogation: [facility]? PPM interrogated and she had dual chamber pacemaker set at DDDR.? A paced 51% of the time and V paced 4.2% of the time.? AT A. fib burden of 39%.? Normal lead impedances and capture threshold.? It seems like patient has been having runs of high ventricular rate since January 28, 2022.? Procedures Performed Cardiac angiogram: Diagnostic Findings ? * Angiography shows a right coronary dominant system. ? * Normal calibre left main with no stenosis. ? * Medium calibre circumflex artery with no stenosis. ? * Medium calibre left anterior descending artery that wraps around apex with no stenosis. ? * Medium calibre right coronary artery with no stenosis. Conclusions ? 1. Cardiac Catheterization study revealed normal coronaries. Recommendations ? * Return to inpatient for close monitoring and routine cath care. ? * Continue medical management and risk factor modification. Left Ventriculography Findings: ? * Left Ventriculogram not performed to minimize contrast use. Pressures ? ? Phase:Rest ? ? AO :? 103 / 87 ( 90 )? @ 10:05:00 AM ? 114 / 28 ( 74 )? @ 10:14:00 AM ? 108 / 75 ( 88 )? @ 10:14:00 AM ? ? LV :? 110 / -8 / 7? @ 10:14:00 AM Hemodynamic Findings ? LVEDP is 7 mmHg. Vitals Last Vital Signs Temp 98.3 F 04/15/22 07:06 Pulse 61 04/15/22 11:38 Resp 18 04/15/22 11:38 BP 104/50 04/15/22 11:38 Pulse Ox 94 04/15/22 11:38 Discharge Plan Discharge Patient Disposition: Home Condition: Stable Prescriptions: New Eliquis 5 mg tablet 5 mg PO BID Qty: 60 0RF atorvastatin 40 mg Tablet 20 mg PO BEDTIME Qty: 30 0RF sotalol 80 mg Tablet 80 mg PO 0600,1800 30 Days Qty: 60 0RF diltiazem HCl 30 mg Tablet 30 mg PO Q6H PRN (Reason: tachycardia) Qty: 30 0RF Lasix 20 mg tablet 20 mg PO DAILY PRN (Reason: weight gain) Qty: 20 0RF Continued Klonopin 1 mg Tablet 1 mg PO DAILY PRN (Reason: Anxiety) 0RF hydrocodone-acetaminophen 7.5-325 mg Tablet 1 tab PO Q8H PRN (Reason: Pain) 0RF lansoprazole 15 mg Capsule,Delayed Release(Dr/Ec) 15 mg PO DAILY 0RF Claritin 10 mg Tablet 10 mg PO DAILY 0RF Seroquel 50 mg Tablet 50 mg PO BEDTIME 0RF Discontinued losartan 100 mg Tablet 100 mg PO DAILY 0RF Discharge Orders: Discharge Order (Routine); Ordered 04/15/22 Ordered By: Shan Paige Other Ambulatory Orders: MCT/Event Monitor 21 Days (Routine) Timeframe: 1 Week Facility: [facility] - Location: Radiology Ordered By: Shan Paige Referrals: Catalina Orr MD [Physician] - 06/03/22 11:00 am (Also appt 04/26/22 @ 1:45pm for event monitor ) Greta Galeana [Primary Care Provider] - 04/25/22 1:45 pm Cassidy Burleson FNP [Nurse Practitioner] - 4-7 days Discharge Diet: Cardiac Discharge Activity: Resume usual activity and Increase activity as tolerated Patient Instructions: Diltiazem (By mouth), Furosemide (By mouth), Atorvastatin (By mouth), Sotalol (By mouth), Apixaban (By mouth), Heart Failure (ED), Atrial Flutter (ED), CHF Stoplight, Opioid Safety Activity Restrictions/Additional Instructions: Multiple medication changes have been done. Do not take losartan anymore. Take sotalol 80 mg twice daily. Eliquis is a blood thinner which you should take twice daily. Please follow-up with cardiology nurse practitioner Ms. Cassidy Burleson in next 4 to 7 days, Dr. Orr in next 2 months. Please check your body weight daily at home. If your body weight increases by 5 pounds to your weight today you can take a dose of Lasix 20 mg on as-needed basis. Please restrict your fluid intake to up to 2 L a day, salt intake to up to 2 g a day. Discharge Attestations Time Spent in Discharge Care*: greater than 30 min Specific Discharge Activities: educating patient, discussing with pcp/other providers, discussing with upper caser/social workers/dc planners, documenting/other paperwork and evaluating patient/reviewing data Status at Discharge: Cognitive status at discharge: cognitively intact, Behavioral status at discharge: cooperative, Functional status at discharge: independent ambulation, Overall status at discharge: patient is back to baseline Quality Metrics Clinical Quality Measures [ No reported AMI, CVA or VTE this stay] Coding Level of Care Code Acute Chg FW DC note Diagnoses Atrial flutter I48.92 Positive cardiac stress test R94.39 Congestive heart failure due to cardiomyopathy I50.9; I42.9 Pacemaker Z95.0
--- NOTE | 2022-04-15 15:01 | PC.NURSE ---
Discharge Note Patient discharged to home via private vehicle accompanied by . Discharge instructions reviewed with patient and/or inside technical sales representative. Mobile pharmacy medications and/or prescriptions provided. Belongings/home medications returned. post angiogram home care instructions discuss to pt.
== END 2022-04-15 14:53 | disposition home or self-care (01) | DRG 286 ==
LOC: ER 15:15 → ICU 17:25 → MEDSURG 04-14 18:27
PROVIDERS: Internal Medicine Cardiovascular Disease; Admitting Provider Internal Medicine; Emergency Provider Family Medicine; PCP Nurse Practitioner Family; Visit Provider Student in an Organized Health Care Education/Training Program
PROC: 4A023N7 Measurement of Cardiac Sampling and Pressure, Left Heart, Percutaneous Approach (ICD-10-PCS; principal; 2022-04-14 08:30)
DX: I48.91 Unspecified atrial fibrillation (principal); I50.21 Acute systolic (congestive) heart failure; Q21.1 Atrial septal defect; I11.0 Hypertensive heart disease with heart failure; N20.0 Calculus of kidney; Z95.0 Presence of cardiac pacemaker; Z66 Do not resuscitate; I25.5 Ischemic cardiomyopathy; E66.9 Obesity, unspecified; Z68.36 Body mass index [BMI] 36.0-36.9, adult; I25.10 Atherosclerotic heart disease of native coronary artery without angina pectoris; Z79.891 Long term (current) use of opiate analgesic
CPT/HCPCS: 36415; 71045; 78452; 80048; 80053; 80061; 81001; 83036; 83540; 83550; 83735; 83880; 84443; 84484; 85025; 93005; 93017; 93306; 93312; 93320; 93325; 93452; 93458; 96360; 96361; 96372; 96374; 99152; 99153; 99285; A9500; C1769; C1887; C1894; J0282; J1644; J1650; J1940; J2250; J2785; J3010; J3490; J7030; J7060; Q0163; Q9967

== ENCOUNTER 2022-06-14 15:44 | Emergency (ER) | payer OTHER, SELFPAY ==
[2022-06-14] VITALS (14 sets, daily range): BP systolic 93–121; BP diastolic 48–73; PULSE 67–138; RESP 10–26; TEMP 36.1; O2SAT 96–99; BMI 35.4
--- NOTE | 2022-06-14 15:47 | XRR_ITS ---
PROCEDURE INFORMATION: Exam: XR Chest Exam date and time: 06/14/2022 4:03 PM Age: 52 years old Clinical indication: Pain; Angina pectoris; Additional info: Chest pain TECHNIQUE: Imaging protocol: Radiologic exam of the chest. Views: 1 view. COMPARISON: CR (CHEST, ) 04/10/2022 3:40 PM FINDINGS: Tubes, catheters and devices: Two lead pacer device noted in the right chest wall. Lungs: Unremarkable. No consolidation. Pleural spaces: Unremarkable. No pleural effusion. No pneumothorax. Heart/Mediastinum: Unremarkable. No cardiomegaly. Bones/joints: Sternotomy wires noted. Visualized osseous structures are intact. XR/XR chest 1V portable [id number] IMPRESSION: No acute findings.
--- NOTE | 2022-06-14 15:47 | ECG_ITS ---
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 Measurements Intervals [place] Rate: 138 P: NC: QRS: 69 QRSD: 106 T: 29 QT: 315 QTc: 478 Interpretive Statements ATRIAL FLUTTER WITH RAPID VENTRICULAR RESPONSE NONSPECIFIC ST & T-WAVE ABNORMALITY ABNORMAL RHYTHM ECG Compared to ECG 04/15/2022 07:22:32 Atrial-paced complex(es) or rhythm no longer present Possible ischemia no longer present T-wave abnormality still present Electronically Signed On 06-14-2022 17:51:30 CDT by Catalina Orr M.D. [email or web address]
--- NOTE | 2022-06-14 16:00 | W.ED.GENADLT ---
HPI - General Adult General: Chief complaint: Chest Pain Stated complaint: chest pain Time Seen by Provider: 06/14/22 15:59 History of Present Illness: Patient is a 52-year-old female with history of atrial fibrillation on Eliquis, CHF, pacemaker dependent presenting to the emergency room with concerns of acute onset of palpitation chest pain and lightheadedness. Patient tells me that symptoms started yesterday afternoon at 3:00. Patient noted that she was in atrial fibrillation with rapid heart rate. Patient has had a previous episode 2-month ago. Patient was stressed out earlier yesterday prior to onset of symptoms. Patient denies any thyroid problem. Patient also reports cough, runny nose, sore throat, loss of taste and diarrhea over the weekend. Patient reports that she has sick contacts at home. Patient also reports midepigastric abdominal pain for the last 5 days. Patient denies any melena/hematochezia. Denies any excessive NSAID use. Onset:yesterday at 3pm Duration:ongoing Location:home Severity:moderate/severe Associated symptoms: Reports chest pain, dyspnea and palpitations; Deny nausea, rash or vomiting Review of Systems Const: Denies: fever(s) or chills Eyes: Denies: change in vision ENMT: Reports: other (+sore throat); Denies: mouth pain Card: Reports: chest pain and palpitations Resp: Reports: dyspnea and non-productive cough GI: Reports: abdominal pain (+midepigastric abd pain) and diarrhea (+watery stool); Denies: nausea or vomiting : Denies: dysuria Musc: Denies: extremity pain Skin/Breast: Denies: rash or new lesions Neuro: Denies: weakness in extremities Psych: Reports: other (Normal mood) Nirav/Lymph: Denies: easy bruising PFSH ED PFSH: Medical History ASD (atrial septal defect) Atrial fibrillation/flutter Nephrolithiasis Pacemaker Family History Father Myocardial infarct Hypertension Mother Myocardial infarct Hypertension Grandmother Stroke Hypertension Sister Diabetes Social History Smoking and tobacco status: never smoked Physical Exam Const: COMMON NORMALS: alert HENMT: COMMON NORMALS: atraumatic HEAD & SCALP: atraumatic MOUTH: moist mucous membranes not abnormal Eye: COMMON NORMALS: EOMs intact bilaterally and conjunctivae normal CONJUNCTIVA: Yes conjunctivae normal Neck/C-Spine: COMMON NORMALS: full ROM and supple Resp: COMMON NORMALS: normal respiratory effort and clear to auscultation bilaterally AUSCULTATION: clear to auscultation bilaterally Cardio: RATE: tachycardic GI: COMMON NORMALS: Soft to palpation PALPATION: Yes Soft to palpation OTHER: +moderate midepigastric focal TTP. NO guarding rebound, guarding, rigidity. No CVA tenderness to percussion. Neg Fox/Neg McBurney's point tenderness, no suprabupic tenderness to palpation. Extremity: COMMON NORMALS: full ROM Neuro: SENSORIUM/ORIENTATION: Yes alert MOTOR EXAM: No Abnormal motor strength present and Other motor observations present (no focal motor deficits) Psych: COMMON NORMALS: speech normal SPEECH: Yes normal speech MOOD & AFFECT: Yes euthymic mood Course Vital Signs: Vital signs: Vital Signs Temperature 97.0 F L 06/14/22 15:51 Pulse Rate 105 H 06/14/22 19:00 Respiratory Rate 14 06/14/22 19:00 Blood Pressure 121/62 06/14/22 19:15 Pulse Oximetry 98 06/14/22 19:00 [facility] - General Adult Medical Decision Making 52-year-old female with a history of CHF with pacemaker dependence, atrial fibrillation on Eliquis presenting to the emergency room with concerns of acute onset palpitations since 3 PM yesterday. On physical exam, patient is hemodynamically stable and noted on registered nurse cardiac to have heart rate in the 130s. Patient is in narrow complex tachycardia. EKG showed atrial flutter with RVR. Patient received 20 mg of diltiazem and patient then had a paced rhythm. Patient has normal heart rate at this time. D-dimer appears to be elevated. Patient is chronically on Eliquis I suspect the source of D-dimer elevation today is likely due to COVID. I have performed a shared decision making with patient obtaining CT scan for evaluation of PE. Patient at this time and likes to not undergo CT scan for evaluation PE since patient tells me that in the past she has had multiple evaluations reviewed all which are negative. Given the fact the patient has elevated kidney injury and COVID status, patient declined CT scan. Explained the risk of not undergoing CT which including possible pulmonary and cardiac decompensation including possible . Patient verbalized understand the risk discussed and elects for no CT scan today. I have instructed the patient to drink plenty water when she gets home. Patient has no white count afebrile currently in the emergency room. Patient is currently on Eliquis and has been compliant with her medicine. Rx tylenol PRN abd pain, maalox/pepcid PRN dyspepsia, zofran PRN nausea/vomiting, renally dosed paxlovid for COVID I have given patient strict return precaution for any drops in the pulse ox to less than 90% while on oxygen. Disposition: Discharge. Patient counseled regarding diagnostic impression, treatment plan. Patient given ED strict return precautions to return for continuation, worsening, or development of new symptoms. Instructed to f/u w/ PCP regarding symptoms today. Patient verbalized understanding. Lab Data : 06/14/22 16:05 06/14/22 16:05 Radiology Impressions Chest X-Ray 06/14/22 15:47 IMPRESSION: No acute findings. Laboratory Results WBC 7.2 10^3/uL (4.0-10.0) 06/14/22 16:05 RBC 5.28 10^6/uL (4.1-5.3) 06/14/22 16:05 Hgb 16.1 g/dL (11.5-15.3) H 06/14/22 16:05 Hct 48.4 % (37.0-47.0) H 06/14/22 16:05 MCV 91.7 fl (81-99) 06/14/22 16:05 MCH 30.5 pg (28.0-34.0) 06/14/22 16:05 MCHC 33.3 g/dL (30.0-36.0) 06/14/22 16:05 RDW 13.7 % (12.1-15.1) 06/14/22 16:05 Plt Count 194 10^3/cmm (130-400) 06/14/22 16:05 MPV 11.0 fL (7.4-10.4) H 06/14/22 16:05 Neut % (Auto) 52.3 % 06/14/22 16:05 Lymph % (Auto) 39.1 % 06/14/22 16:05 [place] % (Auto) 7.1 % 06/14/22 16:05 Eos % (Auto) 0.8 % 06/14/22 16:05 Baso % (Auto) 0.4 % 06/14/22 16:05 Neut # (Auto) 3.77 10^3/uL (1.8-7.7) 06/14/22 16:05 Lymph # (Auto) 2.8 10^3/uL (0.8-4.8) 06/14/22 16:05 [place] # (Auto) 0.5 10^3/uL (0.2-0.9) 06/14/22 16:05 Eos # (Auto) 0.1 10^3/uL (0.0-0.8) 06/14/22 16:05 Baso # (Auto) 0.0 10^3/uL (0.0-0.1) 06/14/22 16:05 Nucleated RBC % (auto) 0 % 06/14/22 16:05 Nucleated RBCs # 0.0 /100WBC 06/14/22 16:05 D-Dimer 1.21 ug/mIFEU (0-0.59) H 06/14/22 16:05 Sodium 138 mmol/L (136-145) 06/14/22 16:05 Potassium 4.1 mmol/L (3.5-5.1) 06/14/22 16:05 Chloride 103 mmol/L (98-107) 06/14/22 16:05 Carbon Dioxide 19 mmol/L (22-29) L 06/14/22 16:05 Anion Gap 20.1 (5-19) H 06/14/22 16:05 BUN 17 mg/dL (6-20) 06/14/22 16:05 Creatinine 1.4 mg/dL (0.5-0.9) H 06/14/22 16:05 GFR Calculation 39.3 mL/min (90-130) L 06/14/22 16:05 Glucose 125 mg/dL (65-115) H 06/14/22 16:05 Calculated Osmolality 289 mOsm/kg (285-295) 06/14/22 16:05 Calcium 10.2 mg/dL (8.5-10.5) 06/14/22 16:05 Total Bilirubin 0.5 mg/dL (0.15-1.2) 06/14/22 16:05 AST 15 U/L (0-32) 06/14/22 16:05 ALT 9 U/L (0-33) 06/14/22 16:05 Alkaline Phosphatase 101 U/L (35-105) 06/14/22 16:05 Troponin T Baseline 15 ng/L (0-10) H 06/14/22 16:05 Troponin T 120 Minute 13.54 ng/L (0-10) H 06/14/22 17:59 Delta Troponin T -1.46 ABS# (0-10) L 06/14/22 17:59 NT-Pro-B Natriuret Pep 1777 pg/mL (0-125) H 06/14/22 16:05 Total Protein 8.1 g/dL (6.6-8.7) 06/14/22 16:05 Albumin 4.7 g/dL (3.5-5.2) 06/14/22 16:05 Globulin 3.4 g/dL (1.3-4.6) 06/14/22 16:05 Lipase 35 U/L (13-60) 06/14/22 16:05 TSH 4.62 uIU/mL (0.27-4.20) H 06/14/22 16:05 Free T4 1.20 ng/dL (0.82-1.77) 06/14/22 16:05 Coronavirus 229E (PCR) Not detected (NOT DETECT) 06/14/22 16:25 SARS-CoV-2 (PCR) Detected (NOT DETECT) A 06/14/22 16:25 Imaging Data Other Imaging: Radiologist's impression: [address] [address] XRay Report Signed Patient: Ana Maria Araya Unit #: [id number] : 1970 Age/Sex: 52 / F ADM Date: 06/14/22 Loc: ER Room/Bed: Attending Dr: Ordering Provider/Ordering MD: Meron Diez Date of Service: 06/14/22 Procedure(s): XR chest 1V portable [id number] Accession Number(s): [id number] Report Number: [id number] PROCEDURE INFORMATION: Exam: XR Chest Exam date and time: 06/14/2022 4:03 PM Age: 52 years old Clinical indication: Pain; Angina pectoris; Additional info: Chest pain TECHNIQUE: Imaging protocol: Radiologic exam of the chest. Views: 1 view. COMPARISON: CR (CHEST, ) 04/10/2022 3:40 PM FINDINGS: Tubes, catheters and devices: Two lead pacer device noted in the right chest wall. Lungs: Unremarkable. No consolidation. Pleural spaces: Unremarkable. No pleural effusion. No pneumothorax. Heart/Mediastinum: Unremarkable. No cardiomegaly. Bones/joints: Sternotomy wires noted. Visualized osseous structures are intact. XR/XR chest 1V portable [id number] IMPRESSION: No acute findings. ? Dictated By: Felix Albert DO Signed By: Felix Albert DO Signed Date/Time: 06/14/22 161 DD/ 160 Discharge Plan Discharge Patient Disposition: Home Clinical Impression: Atrial flutter, COVID, ONI (acute kidney injury), Dehydration Condition: Stable Prescriptions: New Maalox Advanced 1,000-60 mg tablet,chewable 1 tab PO TID PRN (Reason: abdominal pain) 7 Days Qty: 21 0RF Pepcid 20 mg tablet 20 mg PO BID PRN (Reason: abdominal pain) 10 Days Qty: 20 0RF acetaminophen 500 mg tablet 500 mg PO Q6H PRN (Reason: pain) 5 Days Qty: 20 0RF ondansetron 4 mg tablet,disintegrating 4 mg PO TID PRN (Reason: nausea and vomiting) 4 Days Qty: 12 0RF Paxlovid (EUA) 150-100 mg tablet See Rx Instructions .ROUTE .COMPLEX Qty: 10 0RF Rx Instructions: take ONE 150 mg tablet of nirmatrelvir with ONE 100 mg tablet of ritonavir twice daily for 5 days No Action alprazolam 1 mg tablet 1 mg PO BID PRN sotalol 80 mg tablet 80 mg PO BID Qty: 180 3RF hydrocodone-acetaminophen 7.5-325 mg Tablet 1 tab PO Q8H PRN (Reason: Pain) lansoprazole 15 mg Capsule,Delayed Release(Dr/Ec) 15 mg PO DAILY Claritin 10 mg Tablet 10 mg PO DAILY Seroquel 50 mg Tablet 50 mg PO BEDTIME Eliquis 5 mg tablet 5 mg PO BID Qty: 60 0RF atorvastatin 40 mg Tablet 20 mg PO BEDTIME Qty: 30 0RF diltiazem HCl 30 mg Tablet 30 mg PO Q6H PRN (Reason: tachycardia) Qty: 30 0RF Lasix 20 mg tablet 20 mg PO DAILY PRN (Reason: weight gain) Qty: 20 0RF Discharge Orders: Discharge ED (Routine); Ordered 06/14/22 Ordered By: Rudolph England Referrals: Greta Galeana [Primary Care Provider] - Discharge Diet: Advance as tolerated Discharge Activity: Increase activity as tolerated Activity Restrictions/Additional Instructions: Please come back if you have any worsening abdominal pain, fever or chills, nausea or vomiting, diarrhea, blood in the stool, inability hold down liquid or solids, or any new concerning complaints. Come back to the emergency room if your symptoms worsen, have any shortness of breath, fever/chills, dehydration, inability tolerate food or drinks, any difficulty breathing, or any new or concerning complaints. Please return the emergency room if your pulse ox reads less than 90%. Coding Level of Care Code ED Armature Winder Helper Repair for Chg Fwd Exam Comprehensive
[2022-06-14 16:16] LABS: Basophils % 0.4 %; Eosinophils # 0.1 10^3/uL (0.0-0.8); Eosinophils % 0.8 %; Hematocrit 48.4 % (37.0-47.0); Hemoglobin 16.1 g/dL (11.5-15.3); Lymphocytes # 2.8 10^3/uL (0.8-4.8); Lymphocytes % 39.1 %; Mean Corpuscular HGB Conc 33.3 g/dL (30.0-36.0); Mean Corpuscular Hemoglobin 30.5 pg (28.0-34.0); Mean Corpuscular Volume 91.7 fl (81-99); Monocytes # 0.5 10^3/uL (0.2-0.9); Monocytes % 7.1 %; Neutrophils # 3.77 10^3/uL (1.8-7.7); Neutrophils % 52.3 %; Nucleated Red Blood Cells % 0 %; Platelet Count 194 10^3/cmm (130-400); Red Blood Count 5.28 10^6/uL (4.1-5.3); Red Cell Distribution Width 13.7 % (12.1-15.1); White Blood Count 7.2 10^3/uL (4.0-10.0)
[2022-06-14] MEDS: dilTIAZem 5 mg/mL SDV 5 mL 20 MG IVP (16:18)
[2022-06-14] MEDS: sodium chloride 0.9% 1,000 ML 999 ML IV (16:18)
[2022-06-14] MEDS: dilTIAZem 60 mg Tablet PO (16:18)
--- NOTE | 2022-06-14 16:29 | ECG_ITS ---
[facility] Test Date: 2022-06-14 Pat Name: Ana Maria Aarya Department: Room: Gender: Female Commissary Agent: : 1970 Requested By: Rudolph England Order Number: [id number] Kinjal MD: Catalina Orr M.D. Measurements Intervals [place] Rate: 73 P: [place]: QRS: -69 QRSD: 147 T: 92 QT: 418 QTc: 463 Interpretive Statements ATRIAL FLUTTER ELECTRONIC VENTRICULAR PACEMAKER ABNORMAL RHYTHM ECG Compared to ECG 06/14/2022 15:50:31 Atrial flutter no longer present T-wave abnormality no longer present Electronically Signed On 06-14-2022 17:50:07 CDT by Catalina Orr M.D. [id number]
[2022-06-14 16:46] LABS: Alanine Aminotransferase 9 U/L (0-33); Albumin Level 4.7 g/dL (3.5-5.2); Alkaline Phosphatase 101 U/L (35-105); Anion Gap 20.1 (5-19); Aspartate Amino Transferase 15 U/L (0-32); Blood Urea Nitrogen 17 mg/dL (6-20); Calcium 10.2 mg/dL (8.5-10.5); Carbon Dioxide 19 mmol/L (22-29); Chloride 103 mmol/L (98-107); Globulin 3.4 g/dL (1.3-4.6); Glomerular Filtration Rate 39.3 mL/min (90-130); Glucose 125 mg/dL (65-115); NT Pro B Type Natriuretic Pept 1777 pg/mL (0-125); Osmolality Calculated 289 mOsm/kg (285-295); Potassium 4.1 mmol/L (3.5-5.1); Sodium 138 mmol/L (136-145); Total Bilirubin 0.5 mg/dL (0.15-1.2); Total Protein 8.1 g/dL (6.6-8.7)
[2022-06-14 16:48] LABS: Troponin(5th) Baseline 15 ng/L (0-10)
[2022-06-14 17:03] LABS: D Dimer 1.21 ug/mIFEU (0-0.59)
[2022-06-14 18:04] LABS: Lipase 35 U/L (13-60); Thyroid Stimulating Hormone 4.62 uIU/mL (0.27-4.20)
[2022-06-14 18:19] LABS: Adenovirus Not Detected (NOT DETECT); Chlamydia Pneumoniae Not Detected (NOT DETECT); Coronavirus 229E,HKU1,NL63,OC4 Not Detected (NOT DETECT); Human Metapneumovirus Not Detected (NOT DETECT); Human Rhinovirus/Enterovirus Not Detected (NOT DETECT); Influenza A Not Detected (NOT DETECT); Influenza A H1 Not Detected (NOT DETECT); Influenza A H1-2009 Not Detected (NOT DETECT); Influenza A H3 Not Detected (NOT DETECT); Influenza B Not Detected (NOT DETECT); Mycoplasma Pneumoniae Not Detected (NOT DETECT); Parainfluenza Virus Type 1 Not Detected (NOT DETECT); Parainfluenza Virus Type 2 Not Detected (NOT DETECT); Parainfluenza Virus Type 3 Not Detected (NOT DETECT); Parainfluenza Virus Type 4 Not Detected (NOT DETECT); Respiratory Syncytial Virus A Not Detected (NOT DETECT); Respiratory Syncytial Virus B Not Detected (NOT DETECT); SARS-COV-2 Detected (NOT DETECT)
[2022-06-14 18:59] LABS: Troponin 5 2HR 13.54 ng/L (0-10)
[2022-06-14 19:01] LABS: Troponin 5 2HR Delta -1.46 ABS# (0-10)
== END 2022-06-14 19:23 | disposition home or self-care (01) ==
PROVIDERS: Physician Assistant; Emergency Provider Emergency Medicine; PCP Nurse Practitioner Family
DX: U07.1 COVID-19 (principal); I48.92 Unspecified atrial flutter; N17.9 Acute kidney failure, unspecified; E86.0 Dehydration; Z79.01 Long term (current) use of anticoagulants; Z95.0 Presence of cardiac pacemaker
CPT/HCPCS: 71045; 80053; 83690; 83880; 84439; 84443; 84484; 85025; 85378; 87635; 93005; 96361; 96374; 99285; J3490; J7030

== ENCOUNTER 2022-10-16 13:08 | Emergency (ER) | payer OTHER, SELFPAY ==
[2022-10-16 13:25] VITALS: BP 141/73; PULSE 65; RESP 18; TEMP 36.5; O2SAT 96
--- NOTE | 2022-10-16 13:29 | ED_ITS ---
HPI - Chest Pain General: Chief Complaint: Chest Pain Stated Complaint: afib Time Seen by Provider: 10/16/22 13:29 History of Present Illness: Ms. Araya is a 52-year-old lady with significant past medical history of CHF, nonischemic cardiomyopathy, ASD s/p repair paroxysmal atrial fibrillation, chronic anticoagulation with apixaban presenting to the emergency department due to chest pain and shortness of breath. Reports onset of symptoms gradually approximately 4 days ago without known specific provoking event. Since that time notes left anterior chest pain with radiation to the back associated with lower extremity edema, dyspnea, decreased exertional tolerance, generalized malaise. Symptoms are worse with exertion but do not go with rest. Reports this feels similar to prior episodes of heart failure/A. fib exacerbation. Denies infectious symptoms with exception of right ear fullness. No other specific changes in health, exacerbating, or alleviating factors identi fied. Onset (ago): day(s) Timing of current episode: increasing Prior episodes: Yes Onset: during rest Pain location: left chest Pain radiation: back Severity: moderate Relieving factors: nothing Exacerbating factors: exertion Associated symptoms: Reports dyspnea and leg edema Review of Systems General: Reports: 10 or more systems reviewed and unremarkable except in HPI and below Resp: Reports: dyspnea PFSH ED PFSH: Medical History ASD (atrial septal defect) Atrial fibrillation/flutter Nephrolithiasis Pacemaker Family History Father Myocardial infarct Hypertension Mother Myocardial infarct Hypertension Grandmother Stroke Hypertension Sister Diabetes Social History Smoking and tobacco status: never smoked Physical Exam Const: COMMON NORMALS: alert GENERAL APPEARANCE: cooperative and well developed HENMT: COMMON NORMALS: normocephalic and atraumatic HEAD & SCALP: normocephalic and atraumatic THROAT: posterior oropharynx normal Eye: COMMON NORMALS: conjunctivae normal CONJUNCTIVA: Yes conjunctivae normal SCLERA: sclerae normal Neck/C-Spine: COMMON NORMALS: supple GENERAL: Yes trachea midline Resp: COMMON NORMALS: clear to auscultation bilaterally EFFORT & INSPECTION: Yes able to speak in complete sentences AUSCULTATION: clear to auscultation bilaterally Cardio: COMMON NORMALS: regular rate and regular rhythm RATE: regular rate RHYTHM: regular rhythm GI: COMMON NORMALS: Soft to palpation PALPATION: Yes Soft to palpation and No Tenderness to palpation present (GI) Extremity: GENERAL: Yes normal exam except as noted and Yes edema (2+) Neuro: COMMON NORMALS: moves all extremities SENSORIUM/ORIENTATION: Yes alert and No Orientation impaired Psych: COMMON NORMALS: mental status grossly normal and Normal thought process present THOUGHT PROCESS: Normal thought process present Course Vital Signs: Vital signs: Vital Signs Temperature 97.7 F 10/16/22 13:25 Pulse Rate 60 10/16/22 16:23 Respiratory Rate 24 H 10/16/22 15:43 Blood Pressure 122/86 10/16/22 16:23 Pulse Oximetry 96 10/16/22 16:23 Oxygen Delivery Me thod 10/16/22 13:25 MDM - Chest Pain Medical Decision Making 52-year-old lady presenting to the emergency department for respiratory symptoms and left-sided chest discomfort as well as concern for volume overload. Exam as above. EKG notable for atrially paced rhythm, nonspecific ST segment abnormalities, no STEMI. Hematologic panel essentially unremarkable. No significant metabolic derangement to explain symptoms. BNP is improved from prior. Viral panel is negative. Given left-sided chest pain and patient unable to be ruled out by PERC criteria and D-dimer was obtained and is elevated. Chest x-ray with no lobar consolidation or pneumothorax. CTA negative for pulmonary embolism or lobar consolidation, no evidence of pulmonary volume overload, cardiomegaly is present. It is reasonable to pursue increasing diuresis in the outpatient setting with strict return precautions. Patient is comfortable with this plan. Most likely etiology of patient's symptoms is acute on chronic heart failure, she is not vitally unstable and is not requiring supplemental oxygen. The results of ED evaluation were discussed with the patient including prescriptions and/or symptomatic cares (if applicable) including appropriate and responsible use, followup plan, and return precautions. The patient verbalized understanding and felt safe for discharge. Medical Records I reviewed the patient's medical records. Lab Data I reviewed the patient's lab results. 10/16/22 13:55 10/16/22 13:55 Radiology Impressions Chest X-Ray 10/16/22 13:34 IMPRESSION: Mild cardiomegaly otherwise negative chest. Chest CTA 10/16/22 15:13 IMPRESSION: 1. Negative CT angiogram of the chest. No evidence of acute pulmonary embolism. 2. Moderate cardiomegaly Laboratory Results WBC 4.6 10^3/uL (4.0-10.0) 10/16/22 13:55 RBC 4.19 10^6/uL (4.1-5.3) 10/16/22 13:55 Hgb 13.1 g/dL (11.5-15.3) 10/16/22 13:55 Hct 41.5 % (37.0-47.0) 10/16/22 13:55 MCV 99.0 fl (81-99) 10/16/22 13:55 MCH 31.3 pg (28.0-34.0) 10/16/22 13:55 MCHC 31.6 g/dL (30.0-36.0) 10/16/22 13:55 RDW 13.2 % (12.1-15.1) 10/16/22 13:55 Plt Count 180 10^3/cmm (130-400) 10/16/22 13:55 MPV 10.7 fL (7.4-10.4) H 10/16/22 13:55 Neut % (Auto) 51.9 % 10/16/22 13:55 Lymph % (Auto) 37.4 % 10/16/22 13:55 [place] % (Auto) 7.8 % 10/16/22 13:55 Eos % (Auto) 2.0 % 10/16/22 13:55 Baso % (Auto) 0.7 % 10/16/22 13:55 Neut # (Auto) 2.39 10^3/uL (1.8-7.7) 10/16/22 13:55 Lymph # (Auto) 1.7 10^3/uL (0.8-4.8) 10/16/22 13:55 [place] # (Auto) 0.4 10^3/uL (0.2-0.9) 10/16/22 13:55 Eos # (Auto) 0.1 10^3/uL (0.0-0.8) 10/16/22 13:55 Baso # (Auto) 0.0 10^3/uL (0.0-0.1) 10/16/22 13:55 Nucleated RBC % (auto) 0 % 10/16/22 13:55 Nucleated RBCs # 0.0 /100WBC 10/16/22 13:55 D-Dimer 1.32 ug/mIFEU (0-0.59) H 10/16/22 13:55 Sodium 135 mmol/L (136-145) L 10/16/22 13:55 Potassium 4.2 mmol/L (3.5-5.1) 10/16/22 13:55 Chloride 101 mmol/L (98-107) 10/16/22 13:55 Carbon Dioxide 24 mmol/L (22-29) 10/16/22 13:55 Anion Gap 14.2 (5-19) 10/16/22 13:55 BUN 14 mg/dL (6-20) 10/16/22 13:55 Creatinine 0.8 mg/dL (0.5-0.9) 10/16/22 13:55 GFR Calculation 75.0 mL/min (90-130) L 10/16/22 13:55 Glucose 138 mg/dL (65-115) H 10/16/22 13:55 Calculated Osmolality 283 mOsm/kg (285-295) L 10/16/22 13:55 Calcium 9.8 mg/dL (8.5-10.5) 10/16/22 13:55 Magnesium 1.9 mg/dL (1.7-2.3) 10/16/22 13:55 Total Bilirubin 0.6 mg/dL (0.15-1.2) 10/16/22 13:55 AST 21 U/L (0-32) 10/16/22 13:55 ALT 12 U/L (0-33) 10/16/22 13:55 Alkaline Phosphatase 98 U/L (35-105) 10/16/22 13:55 Troponin T Baseline 7 ng/L (0-10) 10/16/22 13:55 Troponin T 120 Minute 7.05 ng/L (0-10) 10/16/22 15:18 Delta Troponin T 0.05 ABS# (0-10) 10/16/22 15:18 NT-Pro-B Natriuret Pep 686 pg/mL (0-125) H 10/16/22 13:55 Total Protein 7.4 g/dL (6.6-8.7) 10/16/22 13:55 Albumin 3.9 g/dL (3.5-5.2) 10/16/22 13:55 Globulin 3.5 g/dL (1.3-4.6) 10/16/22 13:55 TSH 3.21 uIU/mL (0.27-4.20) 10/16/22 13:55 Coronavirus 229E (PCR) Not detected (NOT DETECT) 10/16/22 14:06 SARS-CoV-2 (PCR) Not detected (NOT DETECT) 10/16/22 14:06 Discharge Plan Discharge Patient Disposition: Home Clinical Impression: Chest pain, Congestive heart failure due to cardiomyopathy Condition: Stable Prescriptions: New Lasix 40 mg tablet 40 mg PO BID Qty: 30 0RF potassium chloride 20 mEq tablet extended release 20 meq PO DAILY Qty: 20 0RF Discontinued furosemide [Lasix] 20 mg tablet 20 mg PO DAILY PRN (Reason: weight gain) Qty: 20 0RF No Action alprazolam 1 mg tablet 1 mg PO BID PRN sotalol 80 mg tablet 80 mg PO BID Qty: 180 3RF hydrocodone-acetaminophen 7.5-325 mg Tablet 1 tab PO Q8H PRN (Reason: Pain) lansoprazole 15 mg Capsule,Delayed Release(Dr/Ec) 15 mg PO DAILY Claritin 10 mg Tablet 10 mg PO DAILY Seroquel 50 mg Tablet 50 mg PO BEDTIME Eliquis 5 mg tablet 5 mg PO BID Qty: 60 0RF atorvastatin 40 mg Tablet 20 mg PO BEDTIME Qty: 30 0RF diltiazem HCl 30 mg Tablet 30 mg PO Q6H PRN (Reason: tachycardia) Qty: 30 0RF Paxlovid (EUA) 150-100 mg tablet See Rx Instructions .ROUTE .COMPLEX Qty: 10 0RF Rx Instructions: take ONE 150 mg tablet of nirmatrelvir with ONE 100 mg tablet of ritonavir twice daily for 5 days Discharge Orders: Discharge ED (Routine); Ordered 10/16/22 Ordered By: Gabe Wood Referrals: Greta Galeana [Primary Care Provider] - Discharge Diet: Usual diet Discharge Activity: Increase activity as tolerated Patient Instructions: Heart Failure (ED), Chest Pain (ED) Activity Restrictions/Additional Instructions: Thank you for visiting the emergency department. You were seen and evaluated for chest pain. The exact cause of your symptoms is unclear though may be related to mild volume overload. I believe that we can recently attempt to treat this in the outpatient setting. I will increase your Lasix and add potassium supplementation. Please continue your other medications. Please follow-up with your primary care provider, I recommend repeat labs within 1 week. I will also message case management for follow-up with cardiology. Please return to the emergency department for worsening symptoms or anything else that you are concerned about and feel needs emergency department evaluation. Coding Level of Care Code ED Convention Manager for Alang Fwd Exam Comprehensive
--- NOTE | 2022-10-16 13:34 | XRR_ITS ---
PROCEDURE INFORMATION: Exam: XR Chest Exam date and time: 10/16/2022 1:43 PM Age: 52 years old Clinical indication: Pain; Chest pressure; Prior surgery; Additional info: Cp TECHNIQUE: Imaging protocol: Radiologic exam of the chest. Views: 1 view. COMPARISON: CR XR chest 1V portable [id number] 06/14/2022 4:03 PM FINDINGS: Lungs: Unremarkable. No consolidation. Pleural spaces: Unremarkable. No pleural effusion. No pneumothorax. Heart/Mediastinum: Cardiac silhouette appears mildly enlarged on this portable chest increased in size from previous exam. Dual echo pacemaker with electrode tips projecting within the right atrium and right ventricle unchanged. Bones/joints: Evidence of previous median sternotomy. XR/XR chest 1V portable [id number] IMPRESSION: Mild cardiomegaly otherwise negative chest.
--- NOTE | 2022-10-16 13:38 | ECG_ITS ---
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 Care Transitions Coordinator: : 1970 Requested By: Gabe Wood Order Number: [id number] Kinjal MD: Derek Joyner Measurements Intervals [place] Rate: 64 P: -62 NC: 190 QRS: 80 QRSD: 88 T: 80 QT: 409 QTc: 423 Interpretive Statements ELECTRONIC ATRIAL PACEMAKER with occassional PVC MODERATE T-WAVE ABNORMALITY, CONSIDER ANTERIOR ISCHEMIA [-0.1+ mV T-WAVE IN V3/V4] Compared to ECG 06/14/2022 16:39:04 T-wave abnormality now present Possible ischemia now present Atrial flutter no longer present Electronically Signed On 10-16-2022 14:57:28 PHARMACOEPIDEMIOLOGIST by Derek Joyner [id number]
[2022-10-16] MEDS: aspirin 81 mg Chew Tablet 324 MG PO (13:48)
[2022-10-16 14:05] LABS: Basophils % 0.7 %; Eosinophils # 0.1 10^3/uL (0.0-0.8); Hematocrit 41.5 % (37.0-47.0); Hemoglobin 13.1 g/dL (11.5-15.3); Lymphocytes # 1.7 10^3/uL (0.8-4.8); Lymphocytes % 37.4 %; Mean Corpuscular HGB Conc 31.6 g/dL (30.0-36.0); Mean Corpuscular Hemoglobin 31.3 pg (28.0-34.0); Mean Platelet Volume 10.7 fL (7.4-10.4); Monocytes # 0.4 10^3/uL (0.2-0.9); Monocytes % 7.8 %; Neutrophils # 2.39 10^3/uL (1.8-7.7); Neutrophils % 51.9 %; Nucleated Red Blood Cells % 0 %; Platelet Count 180 10^3/cmm (130-400); Red Blood Count 4.19 10^6/uL (4.1-5.3); Red Cell Distribution Width 13.2 % (12.1-15.1); White Blood Count 4.6 10^3/uL (4.0-10.0)
[2022-10-16 14:07] VITALS: RESP 15; O2SAT 97
[2022-10-16] MEDS: morphine 4 mg/mL SDV 1 mL IVP ×2 (14:07→15:43)
[2022-10-16 14:15] VITALS: PULSE 60; RESP 15; O2SAT 93
[2022-10-16 14:27] VITALS: BP 113/61
[2022-10-16 14:27] LABS: Troponin(5th) Baseline 7 ng/L (0-10)
[2022-10-16 14:37] LABS: Alanine Aminotransferase 12 U/L (0-33); Albumin Level 3.9 g/dL (3.5-5.2); Alkaline Phosphatase 98 U/L (35-105); Blood Urea Nitrogen 14 mg/dL (6-20); Calcium 9.8 mg/dL (8.5-10.5); Carbon Dioxide 24 mmol/L (22-29); Chloride 101 mmol/L (98-107); Globulin 3.5 g/dL (1.3-4.6); Glucose 138 mg/dL (65-115); Magnesium 1.9 mg/dL (1.7-2.3); NT Pro B Type Natriuretic Pept 686 pg/mL (0-125); Osmolality Calculated 283 mOsm/kg (285-295); Sodium 135 mmol/L (136-145); Thyroid Stimulating Hormone 3.21 uIU/mL (0.27-4.20); Total Bilirubin 0.6 mg/dL (0.15-1.2); Total Protein 7.4 g/dL (6.6-8.7)
[2022-10-16 14:40] LABS: Anion Gap 14.2 (5-19); Aspartate Amino Transferase 21 U/L (0-32); Potassium 4.2 mmol/L (3.5-5.1)
[2022-10-16 15:11] LABS: D Dimer 1.32 ug/mIFEU (0-0.59)
--- NOTE | 2022-10-16 15:13 | CTR_ITS ---
PROCEDURE INFORMATION: Exam: CTA Chest With Contrast Exam date and time: 10/16/2022 3:21 PM Age: 52 years old Clinical indication: Pain and abnormal findings; Abnormal diagnostic tests; Elevated d-dimer; Shortness of breath; Left-sided; Prior surgery; Surgery type: Pacemaker, open heart; Additional info: L chest pain, exertional dyspnea, elevated ddimer TECHNIQUE: Imaging protocol: Computed tomographic angiography of the chest with contrast. 3D rendering (Not supervised by radiologist): MIP and/or 3D reconstructed images were created by the technologist. Radiation optimization: All CT scans at this facility use at least one of these dose optimization techniques: automated exposure control; mA and/or kV adjustment per patient size (includes targeted exams where dose is matched to clinical indication); or iterative reconstruction. Contrast material: OMNI 350; Contrast volume: 100 ml; Contrast route: INTRAVENOUS (IV); COMPARISON: CT chest abd pel w con* 05/27/2018 7:58 PM RADIATION DOSE METRICS: Total DLP (mGy-cm): 400.23 FINDINGS: Pulmonary arteries: Pulmonary vasculature is adequately opacified without filling defects or other evidence of acute pulmonary embolism. Aorta: Unremarkable. No aortic aneurysm. No aortic dissection. Lungs: 1.2 cm circumscribed pulmonary nodule left lower lobe with central calcification consistent with calcified granuloma, stable. Pleural spaces: Unremarkable. No pneumothorax. No pleural effusion. Heart: Cardiac silhouette is enlarged. There are pacemaker wires extending into the right atrium right ventricle. Lymph nodes: Unremarkable. No enlarged lymph nodes. Bones/joints: Patient has undergone prior median sternotomy. Soft tissues: Unremarkable. CT/CT angio chest PE protcl [id number] IMPRESSION: 1. Negative CT angiogram of the chest. No evidence of acute pulmonary embolism. 2. Moderate cardiomegaly
[2022-10-16] MEDS: iohexol 350 mg/mL 500 mL Btl (per mL) IV (15:27)
[2022-10-16 15:43] VITALS: RESP 24; O2SAT 99
[2022-10-16] MEDS: alum-mag-hydroxide-sime 30 mL UDC PO (15:43)
[2022-10-16] MEDS: ketorolac 30 mg/mL INJ 15 MG IVP (15:43)
--- NOTE | 2022-10-16 15:49 | ECG_ITS ---
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: : 1970 Requested By: Gabe Wood Order Number: [id number] Kinjal MD: Derek Joyner Measurements Intervals [place] Rate: 60 P: -72 ID: [id number] QRS: 81 QRSD: 96 T: 69 QT: 426 QTc: 426 Interpretive Statements ELECTRONIC ATRIAL PACEMAKER MODERATE T-WAVE ABNORMALITY, CONSIDER ANTERIOR ISCHEMIA [-0.1+ mV T-WAVE IN V3/V4] Compared to ECG 10/16/2022 13:38:09 Ventricular premature complex(es) no longer present T-wave abnormality still present Possible ischemia still present Electronically Signed On 10-16-2022 15:50:30 CARDIOLOGY COORDINATOR by Derek Joyner [email or web address].Ex[employer]/store/OM/[id number]
[2022-10-16 15:58] LABS: Troponin 5 2HR 7.05 ng/L (0-10)
[2022-10-16 16:05] LABS: Adenovirus Not Detected (NOT DETECT); Chlamydia Pneumoniae Not Detected (NOT DETECT); Coronavirus 229E,HKU1,NL63,OC4 Not Detected (NOT DETECT); Human Metapneumovirus Not Detected (NOT DETECT); Human Rhinovirus/Enterovirus Not Detected (NOT DETECT); Influenza A Not Detected (NOT DETECT); Influenza A H1 Not Detected (NOT DETECT); Influenza A H1-2009 Not Detected (NOT DETECT); Influenza A H3 Not Detected (NOT DETECT); Influenza B Not Detected (NOT DETECT); Mycoplasma Pneumoniae Not Detected (NOT DETECT); Parainfluenza Virus Type 1 Not Detected (NOT DETECT); Parainfluenza Virus Type 2 Not Detected (NOT DETECT); Parainfluenza Virus Type 3 Not Detected (NOT DETECT); Parainfluenza Virus Type 4 Not Detected (NOT DETECT); Respiratory Syncytial Virus A Not Detected (NOT DETECT); Respiratory Syncytial Virus B Not Detected (NOT DETECT); SARS-COV-2 Not Detected (NOT DETECT)
[2022-10-16 16:14] LABS: Troponin 5 2HR Delta 0.05 ABS# (0-10)
[2022-10-16 16:23] VITALS: BP 122/86; PULSE 60; O2SAT 96
--- NOTE | 2022-10-17 09:05 | DCPLANNER ---
Addendum entered by Shayy Copeland 11/18/22 14:39: Patients appointment has been rescheduled Addendum entered by Shayy Copeland 10/18/22 13:59: Patient has a follow up appointment scheduled for Tuesday, November 15, 2022 at 3:[address] Orr at [facility]. Clinic will call patient with appointment information. Original Note: manager php had message to schedule a follow up appointment for patient with cardiology. manager php sent patients information to the front office staff at cardiology. Patients information will be printed and reviewed. Clinic will call patient with appointment information.
== END 2022-10-16 16:25 | disposition home or self-care (01) ==
PROVIDERS: Emergency Provider Emergency Medicine; PCP Nurse Practitioner Family
DX: R07.9 Chest pain, unspecified (principal); I50.9 Heart failure, unspecified; I42.9 Cardiomyopathy, unspecified; Z95.0 Presence of cardiac pacemaker; Z79.01 Long term (current) use of anticoagulants; Z20.822 Contact with and (suspected) exposure to COVID-19
CPT/HCPCS: 36415; 71045; 71275; 80053; 83735; 83880; 84443; 84484; 85025; 85378; 87635; 93005; 96374; 96375; 96376; 99285; J1885; J2270; Q9967

== ENCOUNTER 2023-01-22 09:31 | Emergency (ER) | payer OTHER, SELFPAY ==
[2023-01-22 09:36] VITALS: BP 136/89; PULSE 60; TEMP 36.3; O2SAT 97; BMI 38.4
--- NOTE | 2023-01-22 09:58 | XRR_ITS ---
PROCEDURE INFORMATION: Exam: XR Chest Exam date and time: 01/22/2023 10:15 AM Age: 52 years old Clinical indication: Smoker's cough; Prior surgery; Additional info: Chest pain, cough TECHNIQUE: Imaging protocol: Radiologic exam of the chest. Views: 1 view. COMPARISON: CR XR chest 1V portable [id number] 10/16/2022 1:43 PM FINDINGS: Tubes, catheters and devices: There is a dual-lead AICD with leads positioned in the right atrium and right ventricle. Lungs: Lungs are clear. Pleural spaces: There is no pleural effusion or pneumothorax. Heart/Mediastinum: Cardiomediastinal contours are unremarkable. Bones/joints: Sternal wires are present. There is no displacement to suggest sternal dehiscence. There is moderate degenerative disease at the left shoulder. XR/XR chest 1V portable [id number] IMPRESSION: No acute findings.
[2023-01-22 10:08] VITALS: BP 133/81; PULSE 60; O2SAT 98
--- NOTE | 2023-01-22 10:29 | ECG_ITS ---
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 Measurements Intervals [place] Rate: 60 P: -77 MS: 189 QRS: 67 QRSD: 84 T: 117 QT: 379 QTc: 379 Interpretive Statements ELECTRONIC ATRIAL PACEMAKER ST DEVIATION AND MODERATE T-WAVE ABNORMALITY, CONSIDER ANTEROLATERAL ISCHEMIA [-0.1+ mV T-WAVE IN V3-V6] Compared to ECG 10/16/2022 15:49:31 No significant changes Electronically Signed On 01-22-2023 22:36:18 CDT by Juventino Chavez M.D. [id number]
[2023-01-22 10:30] VITALS: BP 150/96; PULSE 60; O2SAT 100
--- NOTE | 2023-01-22 10:38 | W.ED.URI ---
HPI - URI/Sore Throat General: Chief Complaint: Upper Respiratory Infection Stated Complaint: sick for 3xweeks, chest pain Time Seen by Provider: 01/22/23 09:39 History of Present Illness: This patient is a 52 year old presenting with cough, chest pain, fever for 3 weeks. She says that she has been seen at the ED in [place] and by her PCP and has been diagnosed with pneumonia. She has been on 2 courses of a strong antibiotic as well as two z paks, and has had no improvement. She has a history of CHF and has had an ASD repair and a pacemaker. She has constant chest pain with this illness - worse with cough and deep breath, but never goes away. She feels worse this morning than she has during the course of this illness so was willing to come to the ED today. She has not had vomiting or diarrhea. She does have nasal congestion. She has had subjective fevers. She denies peripheral edema. She is on multiple cardiac medications since she has had her pacemaker and ASD repair. She has also had to have cardioversion for a fib in the past. [facility] ED PFSH: Medical History ASD (atrial septal defect) Atrial fibrillation/flutter Nephrolithiasis Pacemaker Family History Father Myocardial infarct Hypertension Mother Myocardial infarct Hypertension Grandmother Stroke Hypertension Sister Diabetes Social History Smoking and tobacco status: never smoked Physical Exam Const: COMMON NORMALS: no acute distress, patient oriented x3, no limitations and alert GENERAL APPEARANCE: cooperative and comfortable HENMT: HEAD & SCALP: normal to inspection FACE & SINUS: normal facial exam Eye: GENERAL EYE: appearance normal, both eyes and all related structures Neck/C-Spine: COMMON NORMALS: supple, no meningeal signs and no JVD Chest: COMMONS NORMALS: normal inspection of the chest OTHER: pacemaker right upper chest Resp: COMMON NORMALS: normal respiratory effort and No use of accessory muscles AUSCULTATION: rhonchi right lower Cardio: COMMON NORMALS: no JVD, regular rate, regular rhythm and No murmurs present (Cardio) RATE: regular rate RHYTHM: regular rhythm GI: COMMON NORMALS: Normal to inspection, nondistended, normoactive bowel sounds present, Soft to palpation and non-tender INSPECTION: Yes normal to inspection AUSCULTATION: Yes normoactive bowel sounds PALPATION: Yes Soft to palpation Back/Pelvis: COMMON NORMALS: thoracic and lumbar spine normal to inspection Extremity: COMMON NORMALS: normal to inspection Neuro: COMMON NORMALS: patient oriented x3, moves all extremities, no focal motor deficits and no sensory deficits noted SENSORIUM/ORIENTATION: Yes alert MENINGEAL SIGNS: Yes no meningeal signs Psych: COMMON NORMALS: mental status grossly normal, cooperative and normal affect Skin: COMMON NORMALS: no rashes or lesions noted and turgor normal GENERAL SKIN EXAM: no rashes or lesions noted and turgor normal Course Vital Signs: Vital signs: Vital Signs Temperature 97.4 F L 01/22/23 09:36 Pulse Rate 60 01/22/23 12:00 Blood Pressure 135/59 01/22/23 12:00 Pulse Oximetry 98 01/22/23 12:00 Oxygen Delivery Me thod 01/22/23 12:00 MDM - URI/Sore Throat Medical Decision Making Upper respiratory symptoms for 3 weeks. Likely not responding to antibiotics because it is probably viral. Significant cardiac history - patient is concerned about the chest pain. Work up for CAD, CHF underway. EKG, interpreted by me, paced - nonspecific ST changes. CXR to evaluate for a focal consolidation consistent with bacterial pneumonia, or evidence of CHF. CXR - interpreted by me - decreased heart size compared to prior. No evidence of pneumonia or CHF. Work up neg for heart issues. Her main concern in the cough which is keeping her up at night. She has tried the tessalon perrles and OTC medication without relief. She has used phenergen with codeine cough syrup before with good results and I did write her a script for that. She understands that this is likely a viral infection - this not treated with antibiotics. She has good outpatient follow up. Lab Data 01/22/23 10:07 01/22/23 10:07 Radiology Impressions Chest X-Ray 01/22/23 09:58 IMPRESSION: No acute findings. Laboratory Results WBC 9.1 10^3/uL (4.0-10.0) 01/22/23 11:09 Corrected WBC Cancelled 01/22/23 10:07 RBC 4.92 10^6/uL (4.1-5.3) 01/22/23 11:09 Hgb 14.8 g/dL (11.5-15.3) 01/22/23 11:09 Hct 46.7 % (37.0-47.0) 01/22/23 11:09 MCV 94.9 fl (81-99) 01/22/23 11:09 MCH 30.1 pg (28.0-34.0) 01/22/23 11:09 MCHC 31.7 g/dL (30.0-36.0) 01/22/23 11:09 RDW 13.4 % (12.1-15.1) 01/22/23 11:09 Plt Count 225 10^3/cmm (130-400) 01/22/23 11:09 MPV 9.9 fL (7.4-10.4) 01/22/23 11:09 Gran % Cancelled 01/22/23 10:07 Neut % (Auto) 80.4 % 01/22/23 11:09 Lymph % (Auto) 14.9 % 01/22/23 11:09 [place] % (Auto) 3.2 % 01/22/23 11:09 Eos % (Auto) 0.9 % 01/22/23 11:09 Baso % (Auto) 0.4 % 01/22/23 11:09 Neut # (Auto) 7.30 10^3/uL (1.8-7.7) 01/22/23 11:09 Lymph # (Auto) 1.4 10^3/uL (0.8-4.8) 01/22/23 11:09 [place] # (Auto) 0.3 10^3/uL (0.2-0.9) 01/22/23 11:09 Eos # (Auto) 0.1 10^3/uL (0.0-0.8) 01/22/23 11:09 Baso # (Auto) 0.0 10^3/uL (0.0-0.1) 01/22/23 11:09 Absolute Gran (auto) Cancelled 01/22/23 10:07 Nucleated RBC % (auto) 0 % 01/22/23 11:09 Nucleated RBCs # 0.0 /100WBC 01/22/23 11:09 Sodium 137 mmol/L (136-145) 01/22/23 11:09 Potassium 4.3 mmol/L (3.5-5.1) 01/22/23 11:09 Chloride 101 mmol/L (98-107) 01/22/23 11:09 Carbon Dioxide 25 mmol/L (22-29) 01/22/23 11:09 Anion Gap 15.3 (5-19) 01/22/23 11:09 BUN 10 mg/dL (6-20) 01/22/23 11:09 Creatinine 0.8 mg/dL (0.5-0.9) 01/22/23 11:09 GFR Calculation 75.0 mL/min (90-130) L 01/22/23 11:09 Glucose 110 mg/dL (65-115) 01/22/23 11:09 Calculated Osmolality 284 mOsm/kg (285-295) L 01/22/23 11:09 Lactic Acid 0.9 mmol/L (0.5-2.2) 01/22/23 11:09 Calcium 10.3 mg/dL (8.5-10.5) 01/22/23 11:09 Total Bilirubin 0.7 mg/dL (0.15-1.2) 01/22/23 11:09 AST 19 U/L (0-32) 01/22/23 11:09 ALT 12 U/L (0-33) 01/22/23 11:09 Alkaline Phosphatase 116 U/L (35-105) H 01/22/23 11:09 Troponin T Baseline 6 ng/L (0-10) 01/22/23 11:09 Troponin T 120 Minute 6.00 ng/L (0-10) 01/22/23 12:57 NT-Pro-B Natriuret Pep 388 pg/mL (0-125) H 01/22/23 11:09 Total Protein 8.7 g/dL (6.6-8.7) 01/22/23 11:09 Albumin 4.6 g/dL (3.5-5.2) 01/22/23 11:09 Globulin 4.1 g/dL (1.3-4.6) 01/22/23 11:09 Discharge Plan Discharge Patient Disposition: Home Clinical Impression: Upper respiratory infection, Cough, Chest pain Condition: Stable Prescriptions: New Promethazine VC-Codeine 6.25-5-10 mg/5 mL syrup 5 ml PO Q4H PRN (Reason: cough) Qty: 118 0RF No Action alprazolam 1 mg tablet 1 mg PO BID PRN sotalol 80 mg tablet 80 mg PO BID Qty: 180 3RF hydrocodone-acetaminophen 7.5-325 mg Tablet 1 tab PO Q8H PRN (Reason: Pain) lansoprazole 15 mg Capsule,Delayed Release(Dr/Ec) 15 mg PO DAILY Claritin 10 mg Tablet 10 mg PO DAILY Seroquel 50 mg Tablet 50 mg PO BEDTIME Eliquis 5 mg tablet 5 mg PO BID Qty: 60 0RF atorvastatin 40 mg Tablet 20 mg PO BEDTIME Qty: 30 0RF diltiazem HCl 30 mg Tablet 30 mg PO Q6H PRN (Reason: tachycardia) Qty: 30 0RF Paxlovid (EUA) 150-100 mg tablet See Rx Instructions .ROUTE .COMPLEX Qty: 10 0RF Rx Instructions: take ONE 150 mg tablet of nirmatrelvir with ONE 100 mg tablet of ritonavir twice daily for 5 days Lasix 40 mg tablet 40 mg PO BID Qty: 30 0RF potassium chloride 20 mEq tablet extended release 20 meq PO DAILY Qty: 20 0RF Discharge Orders: Discharge ED (Routine); Ordered 01/22/23 Ordered By: Amie Arriaza Referrals: Greta Galeana [Primary Care Provider] - Discharge Diet: Usual diet Discharge Activity: Resume usual activity Patient Instructions: Opioid Safety, Pain Management Coding Level of Care Code ED Performance Reporter for Jimmy Syed
[2023-01-22 11:20] LABS: Basophils % 0.4 %; Eosinophils # 0.1 10^3/uL (0.0-0.8); Eosinophils % 0.9 %; Hematocrit 46.7 % (37.0-47.0); Hemoglobin 14.8 g/dL (11.5-15.3); Lymphocytes # 1.4 10^3/uL (0.8-4.8); Lymphocytes % 14.9 %; Mean Corpuscular HGB Conc 31.7 g/dL (30.0-36.0); Mean Corpuscular Hemoglobin 30.1 pg (28.0-34.0); Mean Corpuscular Volume 94.9 fl (81-99); Mean Platelet Volume 9.9 fL (7.4-10.4); Monocytes # 0.3 10^3/uL (0.2-0.9); Monocytes % 3.2 %; Neutrophils % 80.4 %; Nucleated Red Blood Cells % 0 %; Platelet Count 225 10^3/cmm (130-400); Red Blood Count 4.92 10^6/uL (4.1-5.3); Red Cell Distribution Width 13.4 % (12.1-15.1); White Blood Count 9.1 10^3/uL (4.0-10.0)
[2023-01-22] MEDS: acetaminophen 500 mg Tablet 1000 MG PO (11:32)
[2023-01-22 11:33] VITALS: BP 120/83; PULSE 60; O2SAT 97
[2023-01-22 11:35] LABS: Lactic Sepsis W/Reflex 0.9 mmol/L (0.5-2.2)
[2023-01-22 11:37] LABS: Troponin(5th) Baseline 6 ng/L (0-10)
[2023-01-22 11:46] LABS: Alanine Aminotransferase 12 U/L (0-33); Albumin Level 4.6 g/dL (3.5-5.2); Alkaline Phosphatase 116 U/L (35-105); Anion Gap 15.3 (5-19); Aspartate Amino Transferase 19 U/L (0-32); Blood Urea Nitrogen 10 mg/dL (6-20); Calcium 10.3 mg/dL (8.5-10.5); Carbon Dioxide 25 mmol/L (22-29); Chloride 101 mmol/L (98-107); Globulin 4.1 g/dL (1.3-4.6); Glucose 110 mg/dL (65-115); NT Pro B Type Natriuretic Pept 388 pg/mL (0-125); Osmolality Calculated 284 mOsm/kg (285-295); Potassium 4.3 mmol/L (3.5-5.1); Sodium 137 mmol/L (136-145); Total Bilirubin 0.7 mg/dL (0.15-1.2); Total Protein 8.7 g/dL (6.6-8.7)
[2023-01-22 12:00] VITALS: BP 135/59; PULSE 60; O2SAT 98
--- NOTE | 2023-01-22 12:05 | ECG_ITS ---
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 Measurements Intervals [place] Rate: 60 P: -84 MS: 187 QRS: 64 QRSD: 89 T: 132 QT: 403 QTc: 403 Interpretive Statements ELECTRONIC ATRIAL PACEMAKER MODERATE T-WAVE ABNORMALITY, CONSIDER ANTEROLATERAL ISCHEMIA [-0.1+ mV T-WAVE IN V3-V6] Compared to ECG 01/22/2023 10:29:04 No significant changes Electronically Signed On 01-22-2023 22:36:46 CDT by Juventino Chavez M.D. [email or web address].iTiffinmar[facility] general hospitalPro[facility] Cl[facility].Gamerius/store/OM/[id number]
[2023-01-22 13:58] LABS: Troponin 5 2HR Delta 0 ABS# (0-10)
[2023-01-22 14:10] VITALS: BP 139/74; PULSE 95; O2SAT 97
== END 2023-01-22 14:05 | disposition home or self-care (01) ==
PROVIDERS: Emergency Provider Emergency Medicine; PCP Nurse Practitioner Family
DX: J06.9 Acute upper respiratory infection, unspecified (principal); R05.9 Cough, unspecified; R07.9 Chest pain, unspecified; Z79.01 Long term (current) use of anticoagulants; Z95.0 Presence of cardiac pacemaker
CPT/HCPCS: 71045; 80053; 83605; 83880; 84484; 85025; 93005; 99285

== ENCOUNTER → 2023-05-19 09:32 | Outpatient (BNVA) | payer OTHER, SELFPAY | PROVIDERS: PCP Nurse Practitioner Family; Visit Provider Nurse Practitioner Family | DX: F32.9 Major depressive disorder, single episode, unspecified (principal); F43.10 Post-traumatic stress disorder, unspecified; F41.9 Anxiety disorder, unspecified; E78.5 Hyperlipidemia, unspecified; K21.9 Gastro-esophageal reflux disease without esophagitis | CPT/HCPCS: 80053; 80061; 82306; 82607; 84443 ==

== ENCOUNTER → 2023-10-13 11:57 | Outpatient (BNVA) | payer OTHER, SELFPAY | PROVIDERS: PCP Nurse Practitioner Family; Visit Provider Nurse Practitioner Family | DX: F43.10 Post-traumatic stress disorder, unspecified (principal); E78.5 Hyperlipidemia, unspecified; F32.9 Major depressive disorder, single episode, unspecified; F41.9 Anxiety disorder, unspecified | CPT/HCPCS: 80053; 80061 ==

== ENCOUNTER → 2024-01-24 09:21 | Outpatient (BNVA) | payer OTHER, SELFPAY | PROVIDERS: PCP Nurse Practitioner Family; Visit Provider Nurse Practitioner Family | DX: F43.10 Post-traumatic stress disorder, unspecified (principal); F41.9 Anxiety disorder, unspecified; F32.9 Major depressive disorder, single episode, unspecified; I48.91 Unspecified atrial fibrillation; E78.2 Mixed hyperlipidemia; F51.01 Primary insomnia | CPT/HCPCS: 80053; 80061; 84443; 85025 ==

== ENCOUNTER 2024-02-24 18:14 | Emergency (ER) | payer OTHER, SELFPAY ==
[2024-02-24 18:24] VITALS: BP 136/96; PULSE 118; RESP 18; TEMP 36.6; O2SAT 98; BMI 37.0
--- NOTE | 2024-02-24 18:41 | ECG_ITS ---
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 Measurements Intervals [place] Rate: 90 P: 0 RI: 0 QRS: 79 QRSD: 92 T: 81 QT: 370 QTc: 454 Interpretive Statements ATRIAL FLUTTER/TACHYCARDIA MODERATE T-WAVE ABNORMALITY, CONSIDER ANTERIOR ISCHEMIA [-0.1+ mV T-WAVE IN V3/V4] Compared to ECG 02/24/2024 18:43:46 Possible ischemia now present T-wave abnormality still present Electronically Signed On 02-25-2024 22:41:39 CDT by Michael Fletcher M.D. [email or web address].[place]/store/[id number]
--- NOTE | 2024-02-24 18:41 | XRR_ITS ---
PROCEDURE INFORMATION: Exam: XR Chest Exam date and time: 02/24/2024 7:07 PM Age: 53 years old Clinical indication: Chest pressure; Prior surgery; Surgery date: 6+ months; Surgery type: Cabg/pacemaker; Patient HX: Chest pain; Afib TECHNIQUE: Imaging protocol: Radiologic exam of the chest. Views: 1 view. COMPARISON: CR XR chest 1V portable [id number] 01/22/2023 10:15 AM FINDINGS: Tubes, catheters and devices: Two lead pacer device noted in the right chest wall. Lungs: Unremarkable. No consolidation. Pleural spaces: Unremarkable. No pleural effusion. No pneumothorax. Heart/Mediastinum: No cardiomegaly. Bones/joints: Sternotomy wires noted. Visualized osseous structures are intact. XR/XR chest 1V portable [id number] IMPRESSION: No acute findings.
--- NOTE | 2024-02-24 18:43 | ECG_ITS ---
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 Measurements Intervals [place] Rate: 111 P: 0 VA: 0 QRS: 75 QRSD: 91 T: -27 QT: 312 QTc: 424 Interpretive Statements ATRIAL FLUTTER/TACHYCARDIA WITH RAPID VENTRICULAR RESPONSE NONSPECIFIC T-WAVE ABNORMALITY Compared to ECG 01/22/2023 12:05:22 Atrial-paced complex(es) or rhythm no longer present Possible ischemia no longer present T-wave abnormality still present Electronically Signed On 02-24-2024 19:41:35 CDT by Michael Fletcher M.D. [email or web address]/store/[id number]
[2024-02-24 19:06] VITALS: BP 110/82; PULSE 105; RESP 17; O2SAT 100
[2024-02-24] MEDS: dilTIAZem 5 mg/mL SDV 5 mL 15 MG IVP (19:19)
[2024-02-24 19:22] LABS: Basophils % 0.4 %; Eosinophils # 0.1 10^3/uL (0.0-0.8); Eosinophils % 2.3 %; Hematocrit 42.7 % (36-47); Lymphocytes % 34.3 %; Mean Corpuscular HGB Conc 31.4 g/dL (30-55); Mean Corpuscular Hemoglobin 31.2 pg (27-33); Mean Corpuscular Volume 99.3 fl (85-98); Mean Platelet Volume 10.7 fL (7.4-10.4); Monocytes # 0.3 10^3/uL (0.2-0.9); Monocytes % 5.8 %; Neutrophils # 3.24 10^3/uL (1.8-7.7); Nucleated Red Blood Cells % 0 %; Platelet Count 174 10^3/cmm (157-399); Red Cell Distribution Width 13.6 % (12.1-15.1); White Blood Count 5.68 10^3/uL (3.29-11.43)
--- NOTE | 2024-02-24 19:23 | W.ED.CHESTPA ---
HPI - Chest Pain General: Chief Complaint: Chest Pain Stated Complaint: In afib since monday Emmanuel Sinha told to come in Time Seen by Provider: 02/24/24 18:34 History of Present Illness: 53-year-old female with a history of nonischemic cardiomyopathy and atrial fibrillation. She is status post AICD/pacer implant. She presents with chest discomfort. She says that she has been in and out of atrial fibrillation since Monday. She saw her doctor on , and was advised to come the emergency room, but instead decided to go home and rest to see if she could get over it. She continues to have fast heart rates, with chest discomfort and some shortness of breath, even at rest. She denies fever. She denies cough. She denies vomiting or diarrhea. Associated symptoms: Reports dyspnea and palpitations; Deny abdominal pain, fever(s), nausea or vomiting Review of Systems Const: Denies: fever(s), chills or body aches Eyes: Denies: change in vision Card: Reports: chest pain and palpitations Resp: Reports: dyspnea; Denies: productive cough, non-productive cough or wheezing GI: Denies: abdominal pain, nausea, vomiting, diarrhea or hematochezia : Denies: difficulty voiding Skin/Breast: Denies: rash Neuro: Denies: headache(s), weakness in extremities, dizziness or confusion [facility] ED PFSH: Medical History Atrial fibrillation/flutter Nephrolithiasis Pacemaker ASD (atrial septal defect) Family History Father Myocardial infarct Hypertension Mother Myocardial infarct Hypertension Grandmother Stroke Hypertension Sister Diabetes Social History Smoking and tobacco/nicotine status: never used tobacco/nicotine Physical Exam Const: COMMON NORMALS: no acute distress GENERAL APPEARANCE: cooperative; not ill appearing and not frail appearing HENMT: COMMON NORMALS: normocephalic, atraumatic and Normal external nose present HEAD & SCALP: normocephalic and atraumatic FACE & SINUS: normal facial exam and face symmetric NOSE: Normal external nose present Eye: COMMON NORMALS: Equal, round and reactive pupils present and EOMs intact bilaterally PUPIL: Yes Equal, round and reactive pupils present Neck/C-Spine: GENERAL: Yes trachea midline Chest: CHEST: Yes Symmetrical chest wall rise Resp: COMMON NORMALS: normal respiratory effort, No retractions, No use of accessory muscles and clear to auscultation bilaterally AUSCULTATION: clear to auscultation bilaterally Cardio: RHYTHM: abnormal rhythm irregularly irregular GI: COMMON NORMALS: Normal to inspection, nondistended, normoactive bowel sounds present Extremity: COMMON NORMALS: no pedal edema Neuro: FLOR COMA SCALE: document GCS findings [place] coma scale eye opening: Spontaneous [place] coma scale verbal response: Orientated [place] coma scale motor response: Obey commands [place] coma scale total score: 15 SENSORY EXAM: Yes extremities (intact) Psych: COMMON NORMALS: speech normal SPEECH: Yes normal speech Skin: COMMON NORMALS: no rashes or lesions noted GENERAL SKIN EXAM: no rashes or lesions noted Course Vital Signs: Vital signs: Vital Signs Temperature 97.9 F 02/24/24 18:24 Pulse Rate 71 02/24/24 21:04 Respiratory Rate 12 02/24/24 21:04 Blood Pressure 118/85 02/24/24 21:04 Pulse Oximetry 100 02/24/24 21:04 Oxygen Delivery Me thod Room Air 02/24/24 18:24 MDM - Chest Pain Medical Decision Making Patient is still in a flutter, but with rate control, heart rate is 70. Pain is improved. No ST wave changes on EKG. Her troponin is 7. Her BNP is 1100. Chest x-ray is nonacute. CBC and BMP are normal. She will be allowed discharge. Pacer is interpreted, and does appear to be working. Close outpatient cardiology follow-up. I believe she has an appointment March 05. Lab Data 02/24/24 19:16 02/24/24 19:16 Radiology Impressions Chest X-Ray 02/24/24 18:41 IMPRESSION: No acute findings. Laboratory Results WBC 5.68 10^3/uL (3.29-11.43) 02/24/24 19:16 RBC 4.30 10^6/uL (3.85-5.65) 02/24/24 19:16 Hgb 13.40 g/dL (11.27-16.99) 02/24/24 19:16 Hct 42.7 % (36-47) 02/24/24 19:16 MCV 99.3 fl (85-98) H 02/24/24 19:16 MCH 31.2 pg (27-33) 02/24/24 19:16 MCHC 31.4 g/dL (30-55) 02/24/24 19:16 RDW 13.6 % (12.1-15.1) 02/24/24 19:16 Plt Count 174 10^3/cmm (157-399) 02/24/24 19:16 MPV 10.7 fL (7.4-10.4) H 02/24/24 19:16 Neut % (Auto) 57.0 % 02/24/24 19:16 Lymph % (Auto) 34.3 % 02/24/24 19:16 [place] % (Auto) 5.8 % 02/24/24 19:16 Eos % (Auto) 2.3 % 02/24/24 19:16 Baso % (Auto) 0.4 % 02/24/24 19:16 Neut # (Auto) 3.24 10^3/uL (1.8-7.7) 02/24/24 19:16 Lymph # (Auto) 2.0 10^3/uL (0.8-4.8) 02/24/24 19:16 [place] # (Auto) 0.3 10^3/uL (0.2-0.9) 02/24/24 19:16 Eos # (Auto) 0.1 10^3/uL (0.0-0.8) 02/24/24 19:16 Baso # (Auto) 0.0 10^3/uL (0.0-0.1) 02/24/24 19:16 Nucleated RBC % (auto) 0 % 02/24/24 19:16 Nucleated RBCs # 0.0 /100WBC 02/24/24 19:16 PT 13.10 SECONDS (12.1-14.9) 02/24/24 19:16 INR 0.97 (0.8-1.2) 02/24/24 19:16 APTT 20.5 SECONDS (23.9-36.7) L 02/24/24 19:16 Sodium 141 mmol/L (136-145) 02/24/24 19:16 Potassium 4.7 mmol/L (3.5-5.1) 02/24/24 19:16 Chloride 106 mmol/L (98-107) 02/24/24 19:16 Carbon Dioxide 25 mmol/L (22-29) 02/24/24 19:16 Anion Gap 14.7 (5-19) 02/24/24 19:16 BUN 14 mg/dL (6-20) 02/24/24 19:16 Creatinine 0.9 mg/dL (0.5-0.9) 02/24/24 19:16 GFR Calculation 65.2 mL/min (90-130) L 02/24/24 19:16 Glucose 102 mg/dL (65-115) 02/24/24 19:16 Calculated Osmolality 293 mOsm/kg (285-295) 02/24/24 19:16 Calcium 8.9 mg/dL (8.5-10.5) 02/24/24 19:16 Magnesium 2.0 mg/dL (1.7-2.3) 02/24/24 19:16 Total Bilirubin 0.3 mg/dL (0.15-1.2) 02/24/24 19:16 AST 14 U/L (0-32) 02/24/24 19:16 ALT 8 U/L (0-33) 02/24/24 19:16 Alkaline Phosphatase 106 U/L (35-105) H 02/24/24 19:16 Creatine Kinase 59 U/L (26-192) 02/24/24 19:16 Troponin T Baseline 7 ng/L (0-10) 02/24/24 19:16 NT-Pro-B Natriuret Pep 1133 pg/mL (0-125) H 02/24/24 19:16 Total Protein 7.1 g/dL (6.6-8.7) 02/24/24 19:16 Albumin 4.5 g/dL (3.5-5.2) 02/24/24 19:16 Globulin 2.6 g/dL (1.3-4.6) 02/24/24 19:16 TSH 1.88 uIU/mL (0.27-4.20) 02/24/24 19:16 All radiology interpretation(s) finalized by discharge Discharge Plan Discharge Patient Disposition: Home Clinical Impression: Atrial fibrillation/flutter, Chest pain Condition: Stable Prescriptions: Changed diltiazem HCl 30 mg tablet 30 mg PO BID 30 Days Qty: 60 3RF No Action albuterol sulfate [Ventolin HFA] 90 mcg/actuation HFA aerosol inhaler 2 puff inhalation 6XD PRN (Reason: shortness of breath or wheezing) Qty: 8.5 3RF Eliquis 5 mg tablet 5 mg PO BID 30 Days Qty: 60 3RF atorvastatin 20 mg tablet 20 mg PO .QHS 30 Days Qty: 30 3RF bupropion HCl 75 mg tablet See Rx Instructions .ROUTE .COMPLEX Qty: 60 3RF Dose Instruction: TAKE ONE TABLET BY MOUTH TWICE DAILY Rx Instructions: TAKE ONE TABLET BY MOUTH TWICE DAILY Lasix 40 mg tablet 40 mg PO BID PRN (Reason: weight gain) 30 Days Qty: 60 3RF lansoprazole 15 mg capsule,delayed release(DR/EC) 30 mg PO DAILY 30 Days Qty: 60 3RF Claritin 10 mg tablet 10 mg PO DAILY 90 Days Qty: 90 1RF metoprolol tartrate 25 mg tablet 25 mg PO BID 30 Days Qty: 60 3RF ondansetron 4 mg tablet,disintegrating 4 mg PO Q6H PRN (Reason: nausea and vomiting) Qty: 30 0RF quetiapine [Seroquel] 100 mg tablet 100 mg PO .QHS PRN (Reason: insomnia) 30 Days Qty: 30 3RF alprazolam 1 mg tablet 1 mg PO BID 30 Days Qty: 60 0RF Discharge Orders: Discharge ED (Routine); Ordered 02/24/24 Ordered By: Meir Kennedy Referrals: Jamila Sinha NP [Primary Care Provider] - 1-3 days Patient Instructions: Atrial Flutter (ED), Chest Pain (ED), Opioid Safety, Pain Management Activity Restrictions/Additional Instructions: Increase your diltiazem from 30 mg once a day to 30 mg twice a day as ordered. See your doctor next week. Follow-up with cardiology as scheduled. Return for worsening pain despite treatment, fever, shortness of breath, other concerning symptoms. Coding Level of Care Code ED Hot Dog Vendor for Jimmy Syed
[2024-02-24 19:33] VITALS: BP 126/78; PULSE 76; RESP 14; O2SAT 99
[2024-02-24 19:40] LABS: INR 0.97 (0.8-1.2); Partial Thromboplastin Time 20.5 SECONDS (23.9-36.7)
[2024-02-24 19:46] LABS: Troponin(5th) Baseline 7 ng/L (0-10)
[2024-02-24 19:56] LABS: Alanine Aminotransferase 8 U/L (0-33); Albumin Level 4.5 g/dL (3.5-5.2); Alkaline Phosphatase 106 U/L (35-105); Anion Gap 14.7 (5-19); Aspartate Amino Transferase 14 U/L (0-32); Blood Urea Nitrogen 14 mg/dL (6-20); Calcium 8.9 mg/dL (8.5-10.5); Carbon Dioxide 25 mmol/L (22-29); Chloride 106 mmol/L (98-107); Creatine Phosphokinase 59 U/L (26-192); Creatinine Clr Calc Pharmacy 96.1816; Globulin 2.6 g/dL (1.3-4.6); Glomerular Filtration Rate 65.2 mL/min (90-130); Glucose 102 mg/dL (65-115); NT Pro B Type Natriuretic Pept 1133 pg/mL (0-125); Osmolality Calculated 293 mOsm/kg (285-295); Potassium 4.7 mmol/L (3.5-5.1); Sodium 141 mmol/L (136-145); Thyroid Stimulating Hormone 1.88 uIU/mL (0.27-4.20); Total Bilirubin 0.3 mg/dL (0.15-1.2); Total Protein 7.1 g/dL (6.6-8.7)
[2024-02-24] MEDS: metoprolol tartrate 1 mg/1 mL SDV 5 mL 2.5 MG IVP (20:21)
[2024-02-24 20:22] VITALS: BP 145/70; PULSE 92; RESP 14; O2SAT 100
[2024-02-24] MEDS: ondansetron 2 mg/ML SDV 2 mL 4 MG IVP (21:01)
[2024-02-24] MEDS: morphine 4 mg/mL SDV 1 mL IVP (21:03)
[2024-02-24 21:04] VITALS: BP 118/85; PULSE 71; RESP 12; O2SAT 100
== END 2024-02-24 21:27 | disposition home or self-care (01) ==
PROVIDERS: Emergency Provider Emergency Medicine; PCP Nurse Practitioner Family
DX: I48.91 Unspecified atrial fibrillation (principal); I48.92 Unspecified atrial flutter; R07.9 Chest pain, unspecified; Z79.01 Long term (current) use of anticoagulants; Z95.0 Presence of cardiac pacemaker
CPT/HCPCS: 36415; 71045; 80053; 82550; 83735; 83880; 84443; 84484; 85025; 85610; 85730; 93005; 96374; 96375; 99285; J2270; J2405; J3490

== ENCOUNTER 2024-02-26 14:54 | Inpatient (IN) | payer OTHER, SELFPAY ==
[2024-02-26] VITALS (21 sets, daily range): BP systolic 112–131; BP diastolic 44–100; PULSE 70–126; RESP 8–27; TEMP 36.4–36.8; O2SAT 77–100; BMI 37.8
--- NOTE | 2024-02-26 14:56 | XR_ITS ---
WS: [id number] XR chest 1V portable [id number] REASON FOR EXAM: syncope FINDINGS: Examination is unchanged compared to 02/24/2024. Sternal sutures. Cardiac device over the right chest with trans right subclavian vein leads to the ri ght atrium and right ventricle. Heart at the upper limits of normal to mildly enlarged. No acute cardiopulmonary abnormality is identified. XR/XR chest 1V portable [id number] IMPRESSION: Stable chest with no acute abnormality.
--- NOTE | 2024-02-26 14:59 | ECG_ITS ---
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 Measurements Intervals [place] Rate: 108 P: 0 PA: 0 QRS: 82 QRSD: 94 T: 74 QT: 356 QTc: 479 Interpretive Statements ATRIAL FLUTTER/TACHYCARDIA WITH RAPID VENTRICULAR RESPONSE NONSPECIFIC T-WAVE ABNORMALITY ABNORMAL RHYTHM ECG Compared to ECG 02/24/2024 20:10:39 Possible ischemia no longer present T-wave abnormality still present Electronically Signed On 02-26-2024 22:50:34 CDT by Michael Fletcher M.D. [id number]
--- NOTE | 2024-02-26 15:05 | ED_ITS ---
HPI - Syncope 2 General: Chief Complaint: Syncope Stated Complaint: passing out, elevated hr Time Seen by Provider: 02/26/24 15:05 History of Present Illness: 51-year-old female presents to the emerg ency department with complaints of feeling like her heart is racing and states that she is having episodes of syncope. She states that she had a symptomatic ASD patch repair in 2014 at [facility] in [place] she has a history of congestive heart failure with an ejection fraction of approximately 40% verified by an echocardiogram on 03/2022. She does have a [employer]m pacemaker implant that was implanted for bradycardia. She does have a history of hypertension, hypercholesterolemia and nephrolithiasis. She was seen here initially 2 days ago and had her pacemaker interrogated that did not show any significant abnormalities. She presents again today in the emergency department with complaints of having 3 syncopal episodes since her discharge in the ER 2 days ago. She states that she feels like when her pacemaker is activated that she can feel pain in the right anterior chest like it is causing a muscle to twitch constantly. Associated symptoms: Reports chest pain; Deny headache(s) Review of Systems 2 General: Reports: 10 or more systems reviewed and unremarkable except in HPI and below Card: Reports: chest pain, irregular heart rhythm and syncope Neuro: Denies: headache(s) PFSH ED 2 PFSH: Medical History Atrial fibrillation/flutter Nephrolithiasis Pacemaker ASD (atrial septal defect) Family History Father Myocardial infarct Hypertension Mother Myocardial infarct Hypertension Grandmother Stroke Hypertension Sister Diabetes Social History Smoking and tobacco/nicotine status: never used tobacco/nicotine Physical Exam 2 Narrative: EXAM NARRATIVE: Constitutional: the patient appears well nourished and of normal development. Vital signs as documented. No acute distress at present. Alert and oriented-to person, place, time and situation. Head, eyes, ears, nose, mouth, throat: Normocephalic, atraumatic. Pupils-equal, round, reactive to light. No scleral icterus. Normal-appearing external ears. Normal appearing nasal turbinates, no drainage. No obvious oral lesions, posterior oropharynx without erythema or exudates. Neck: Supple, trachea is midline, no lymphadenopathy, no jugular venous distension, thyromegaly, or carotid bruits. Carotid upstrokes are brisk bilaterally. Lungs: clear to auscultation to all lung wolf. Symmetrical rise and fall of chest, no obvious signs of increased work of breathing at present. Cardiac: Regular rate and rhythm, positive S1, S2. No murmurs, rubs or gallops that I can appreciate Abdomen: Soft, non-tender to palpation, normal active bowel sounds to all quadrants. No palpable masses, no organomegaly and abdominal bruits. Extremities: 2+ pulses in the upper extremities that are equal bilaterally, 2+ pulses in the lower extremities that are equal bilaterally. Non-edematous. Moves all extremities well, sensation to all extremities are noted. Skin: Warm, dry, intact. Course 2 Vital Signs: Vital signs: Vital Signs Temperature 98.2 F 02/26/24 15:05 Pulse Rate 87 02/26/24 16:38 Respiratory Rate 17 02/26/24 15:38 Blood Pressure 119/44 02/26/24 15:38 Pulse Oximetry 96 02/26/24 16:38 Oxygen Delivery Me thod Room Air 02/26/24 15:38 MDM - Syncope Medical Decision Making Physical exam completed and documented, I will obtain serial cardiac enzymes, serial twelve-lead EKGs, chest x-ray, CBC, CMP, urinalysis, B-type natriuretic peptide, PT/PTT/INR, and a chest x-ray. I have reviewed previous and pertinent medical records for assist in obtaining beneficial medical information to improved the care and treatment of the patient. 14: 06 I have attempted to contact the mechanical research engineer on-call Dr. Chavez to discuss the patient's condition. Palpation of the patient's right anterior chest at the area superior to the patient's pacemaker does incite increased pacemaker function, I am concerned that the electrode at the pacemaker may be disrupted or dysfunctional. Medical Records I reviewed the patient's medical records. Lab Data I reviewed the patient's lab results. 02/26/24 15:25 02/26/24 15:25 Radiology Impressions Chest X-Ray 02/26/24 14:56 IMPRESSION: Stable chest with no acute abnormality. Laboratory Results WBC 4.94 10^3/uL (3.29-11.43) 02/26/24 15:25 RBC 3.84 10^6/uL (3.85-5.65) L 02/26/24 15:25 Hgb 12.00 g/dL (11.27-16.99) 02/26/24 15:25 Hct 38.0 % (36-47) 02/26/24 15:25 MCV 99.0 fl (85-98) H 02/26/24 15:25 MCH 31.3 pg (27-33) 02/26/24 15: MCHC 31.6 g/dL (30-55) 02/26/24 15:25 RDW 13.5 % (12.1-15.1) 02/26/24 15: Plt Count 159 10^3/cmm (157-399) 02/26/24 15: MPV 10.9 fL (7.4-10.4) H 02/26/24 15:25 Neut % (Auto) 46.4 % 02/26/24 15: Lymph % (Auto) 45.1 % 02/26/24 15:25 Toole % (Auto) 6.5 % 02/26/24 15:25 Eos % (Auto) 1.4 % 02/26/24 15:25 Baso % (Auto) 0.6 % 02/26/24: Neut # (Auto) 2.29 10^3/uL (1.8-7.7) 02/26/24 15: Lymph # (Auto) 2.2 10^3/uL (0.8-4.8) 02/26/24 15:25 Toole # (Auto) 0.3 10^3/uL (0.2-0.9) 02/26/24 15:25 Eos # (Auto) 0.1 10^3/uL (0.0-0.8) 02/26/24: Baso # (Auto) 0.0 10^3/uL (0.0-0.1) 02/26/24: Nucleated RBC % (auto) 0 % 02/26/24: Nucleated RBCs # 0.0 /100WBC 02/26/24 15: PT 13.00 SECONDS (12.1-14.9) 02/26/24 15:25 INR 0.96 (0.8-1.2) 02/26/24 15:25 Sodium 142 mmol/L (136-145) 02/26/24 15:25 Potassium 4.1 mmol/L (3.5-5.1) 02/26/24 15:25 Chloride 109 mmol/L (98-107) H 02/26/24 15:25 Carbon Dioxide 25 mmol/L (22-29) 02/26/24 15:25 Anion Gap 12.1 (5-19) 02/26/24 15:25 BUN 16 mg/dL (6-20) 02/26/24 15:25 Creatinine 0.8 mg/dL (0.5-0.9) 02/26/24 15:25 GFR Calculation 74.7 mL/min (90-130) L 02/26/24 15:25 Glucose 90 mg/dL (65-115) 02/26/24 15:25 Calculated Osmolality 295 mOsm/kg (285-295) 02/26/24 15:25 Calcium 8.2 mg/dL (8.5-10.5) L 02/26/24 15:25 Total Bilirubin 0.3 mg/dL (0.15-1.2) 02/26/24 15:25 AST 13 U/L (0-32) 02/26/24 15:25 ALT 6 U/L (0-33) 02/26/24 15:25 Alkaline Phosphatase 95 U/L (35-105) 02/26/24 15:25 Total Protein 6.7 g/dL (6.6-8.7) 02/26/24 15:25 Albumin 4.2 g/dL (3.5-5.2) 02/26/24 15:25 Globulin 2.5 g/dL (1.3-4.6) 02/26/24 15:25 All radiology interpretation(s) finalized by discharge EKG Data EKG 1: Interpretation: Twelve-lead EKG obtained at 1459 reviewed at 1501 demonstrates atrial flutter with rapid ventricular response ventricular rate of 108, QRS duration 94, QT 356, QTc [address] elevation or depression to demonstrate acute ischemia or infarction at present. Discharge Plan Discharge Patient Disposition: Placed in Observation Clinical Impression: Atrial flutter with rapid ventricular response, Syncope and collapse Condition: Stable Prescriptions: No Action albuterol sulfate [Ventolin HFA] 90 mcg/actuation HFA aerosol inhaler 2 puff inhalation 6XD PRN (Reason: shortness of breath or wheezing) Qty: 8.5 3RF Eliquis 5 mg tablet 5 mg PO BID 30 Days Qty: 60 3RF Lasix 40 mg tablet 40 mg PO BID PRN (Reason: weight gain) 30 Days Qty: 60 3RF metoprolol tartrate 25 mg tablet 25 mg PO BID 30 Days Qty: 60 3RF ondansetron 4 mg tablet,disintegrating 4 mg PO Q6H PRN (Reason: nausea and vomiting) Qty: 30 0RF alprazolam 1 mg tablet 1 mg PO BID 30 Days Qty: 60 0RF diltiazem HCl 30 mg tablet 30 mg PO BID 30 Days Qty: 60 3RF lansoprazole 30 mg capsule,delayed release(DR/EC) 30 mg PO QAM atorvastatin 20 mg tablet 20 mg PO BEDTIME quetiapine [Seroquel] 100 mg tablet 100 mg PO BEDTIME bupropion HCl 75 mg tablet 75 mg PO BID Aspir-81 81 mg Tablet,Delayed Release (Dr/Ec) 81 mg PO QAM Percocet 10-325 mg Tablet See Rx Instructions .ROUTE .COMPLEX Rx Instructions: take one tab po up to five times a day-(takes @08:00,13:00,17:00,21:00 and if wakes up may take one more tab) Claritin 10 mg tablet 10 mg PO QAM Referrals: Jamila Sinha NP [Primary Care Provider] - Coding Level of Care Code ED Remote Broadcast Technician for Jimmy Syed
[2024-02-26] MEDS: dilTIAZem ER (12HR) 60 mg Capsule PO (15:30)
[2024-02-26] MEDS: dilTIAZem 5 mg/mL SDV 5 mL 10 MG IVP (15:30)
[2024-02-26 15:44] LABS: Basophils % 0.6 %; Eosinophils # 0.1 10^3/uL (0.0-0.8); Eosinophils % 1.4 %; Lymphocytes # 2.2 10^3/uL (0.8-4.8); Lymphocytes % 45.1 %; Mean Corpuscular HGB Conc 31.6 g/dL (30-55); Mean Corpuscular Hemoglobin 31.3 pg (27-33); Mean Platelet Volume 10.9 fL (7.4-10.4); Monocytes # 0.3 10^3/uL (0.2-0.9); Monocytes % 6.5 %; Neutrophils # 2.29 10^3/uL (1.8-7.7); Neutrophils % 46.4 %; Nucleated Red Blood Cells % 0 %; Platelet Count 159 10^3/cmm (157-399); Red Blood Count 3.84 10^6/uL (3.85-5.65); Red Cell Distribution Width 13.5 % (12.1-15.1); White Blood Count 4.94 10^3/uL (3.29-11.43)
[2024-02-26 15:55] LABS: INR 0.96 (0.8-1.2)
[2024-02-26 16:01] LABS: Alanine Aminotransferase 6 U/L (0-33); Albumin Level 4.2 g/dL (3.5-5.2); Alkaline Phosphatase 95 U/L (35-105); Anion Gap 12.1 (5-19); Aspartate Amino Transferase 13 U/L (0-32); Blood Urea Nitrogen 16 mg/dL (6-20); Calcium 8.2 mg/dL (8.5-10.5); Carbon Dioxide 25 mmol/L (22-29); Chloride 109 mmol/L (98-107); Creatinine Clr Calc Pharmacy 109.3556; Globulin 2.5 g/dL (1.3-4.6); Glomerular Filtration Rate 74.7 mL/min (90-130); Glucose 90 mg/dL (65-115); Osmolality Calculated 295 mOsm/kg (285-295); Potassium 4.1 mmol/L (3.5-5.1); Sodium 142 mmol/L (136-145); Total Bilirubin 0.3 mg/dL (0.15-1.2); Total Protein 6.7 g/dL (6.6-8.7)
--- NOTE | 2024-02-26 16:31 | PC.PHAR ---
pt states she takes care of her own medications-pt states her diltiazem was just increased to 30mg bid written on 02/24/24 by er -ext shows 30mg daily last filled 02/20/24 30d/s-
--- NOTE | 2024-02-26 16:50 | P.HP_ITS ---
Providers/Chief Complaint 2 Primary Care Provider: Jamila Sinha NP Chief Complaint: passing out, elevated hr History of Present Illness Ana Maria Araya is a 53 year old female Medications/Allergies Home Medications Medication Instructions Recorded Confirmed Last Taken Type apixaban 5 mg tablet (Eliquis) 5 mg PO BID 30 days #60 tabs 12/14/23 02/26/24 02/26/24 Rx furosemide 40 mg tablet (Lasix) 40 mg PO BID PRN weight gain 30 12/14/23 02/26/24 02/25/24 Rx days #60 tabs metoprolol tartrate 25 mg tablet 25 mg PO BID 30 days #60 tabs 12/14/23 02/26/24 02/26/24 Rx ondansetron 4 mg disintegrating 4 mg PO Q6H PRN nausea and 12/14/23 02/26/24 Unknown Rx tablet vomiting #30 tabs albuterol sulfate 90 mcg/actuation 2 puff inhalation 6XD PRN 01/24/24 02/26/24 Unknown Rx aerosol inhaler (Ventolin HFA) shortness of breath or wheezing #8.5 grams alprazolam 1 mg tablet 1 mg PO BID 30 days #60 tabs 02/23/24 02/26/24 02/26/24 Rx diltiazem HCl 30 mg tablet 30 mg PO BID tachycardia 30 days 02/24/24 02/26/24 02/26/24 Rx #60 tabs aspirin 81 mg tablet,delayed 81 mg PO QAM 02/26/24 02/26/24 02/26/24 History release atorvastatin 20 mg tablet 20 mg PO BEDTIME 02/26/24 02/26/24 02/25/24 History bupropion HCl 75 mg tablet 75 mg PO BID 02/26/24 02/26/24 02/26/24 History lansoprazole 30 mg capsule,delayed 30 mg PO QAM 02/26/24 02/26/24 02/26/24 History release loratadine 10 mg tablet (Claritin) 10 mg PO QAM 02/26/24 02/26/24 02/26/24 History oxycodone-acetaminophen 10 mg-325 See Rx Instructions .Route .COMPLEX 02/26/24 02/26/24 02/26/24 History mg tablet (Percocet) quetiapine 100 mg tablet (Seroquel) 100 mg PO BEDTIME insomnia 02/26/24 02/26/24 02/25/24 History Allergies Allergy/AdvReac Type Severity Reaction Status Date / Time Penicillins Allergy ALGY-Hives Verified 02/24/24 18:28 poison ana extract Allergy ALGY-Rash Verified 02/24/24 18:28 poison oak extract Allergy ALGY-Rash Verified 02/24/24 18:28 wasps Allergy ALGY-Rash Uncoded 02/13/23 14:58 PFSH Acute 2 PFSH: Medical History Atrial fibrillation/flutter Nephrolithiasis Pacemaker ASD (atrial septal defect) Family History Father Myocardial infarct Hypertension Mother Myocardial infarct Hypertension Grandmother Stroke Hypertension Sister Diabetes Social History Smoking and tobacco/nicotine status: never used tobacco/nicotine Vitals/I&O/Wt Last Vital Signs Temp 98.2 F 02/26/24 15:05 Pulse 87 02/26/24 16:38 Resp 17 02/26/24 15:38 BP 119/44 02/26/24 15:38 Pulse Ox 96 02/26/24 16:38 O2 Del Method Room Air 02/26/24 15:38 Weight last 48 hrs Weight 116.12 kg Data 02/26/24 15:25 02/26/24 15:25 Coding Level of Care Code Acute Code for Chg Yahaira
--- NOTE | 2024-02-26 16:54 | USCV_ITS ---
Ana Maria Araya Age: 53 Gender: F : 1970 Exam Date: 02/26/2024 19:11 Ordering Phys: Sally Carrington MD Technologist: CHRISTY Exam Location: [facility] [place] Indication: multiple syncopal events recently. History ASD patch 2014. History of pacer . HTN, HL. BP: 119 / 44 HR: 101 Rhythm: Atrial fibrillation, irregular rhythm Technical Quality: Adequate MEASUREMENTS (Male / Female) Normal Values 2D ECHO LV Diastolic Diameter PLAX 5.1 cm 4.2 - 5.9 / 3.9 - 5.3 cm IVS Diastolic Thickness 1.2 cm 0.6 - 1.0 / 0.6 - 0.9 cm IVS Systolic Thickness 1.6 cm LVPW Diastolic Thickness 1.3 cm 0.6 - 1.0 / 0.6 - 0.9 cm LVPW Systolic Thickness 1.7 cm LVOT Diameter 1.9 cm LV Ejection Fraction 2D Teich 41.7 % LV Ejection Fraction MOD 2C 43.0 % LV Ejection Fraction 2C AL 43.0 % LA Diameter 3.9 cm LA Sys Volume AL 113.2 cm cubed LA Sys Volume Index AL 46.7 cm cubed/m squared Aorta at Sinotubular Diameter 3.2 cm IVC Diameter 1.8 cm M-MODE LA Ao Ratio MM 1.4 AV Cusp Separation MM 1.8 cm DOPPLER AV Peak Velocity 112.0 cm/s LVOT Peak Velocity 73.0 cm/s AV Area Cont Eq vti 1.6 cm squared AV Area Cont Eq pk 1.8 cm squared MV Peak Velocity 106.0 cm/s MV Area PHT 3.6 cm squared Mitral E to A Ratio 0.0 TV Peak Velocity 215.2 cm/s TR Peak Velocity 237.0 cm/s TR Peak Gradient 22.5 mmHg TV Peak E Velocity 39.0 cm/s Right Atrial Pressure 3.0 mmHg Pulmonary Artery Systolic Pressu 25.5 mmHg PV Peak Velocity 66.0 cm/s FINDINGS Left Ventricle Left ventricle is normal size. LV systolic function is moderately reduced with EF of 35 to 40%. Moderate global hypokinesis. Right Ventricle Moderate hypokinesis. Pacemaker lead is seen. Right Atrium Dilated Left Atrium Dilated Mitral Valve Structurally normal mitral valve. Trace mitral regurgitation. Aortic Valve Structurally normal aortic valve. No significant stenosis or regurgitation. Tricuspid Valve Mild tricuspid regurgitation. Pulmonary artery systolic pressure is normal. Pulmonic Valve Trace pulmonic regurgitation. Pericardium Normal Aorta Normal in size IVC Appears to be normal CONCLUSIONS LV systolic function is moderately reduced with EF of 35-40% Moderately reduced right ventricle Biatrial dilation Trace mitral regurgitation Mild tricuspid regurgitation Trace pulmonic regurgitation Compared to prior echocardiogram from 2021, LV systolic function and RV function have decreased Juventino Chavez MD (Electronically Signed) Final Date: 27 February 2024 17:42 S
--- NOTE | 2024-02-26 16:54 | CTR_ITS ---
PROCEDURE INFORMATION: Exam: CT Chest Without Contrast; Diagnostic Exam date and time: 02/26/2024 5:08 PM Age: 53 years old Clinical indication: Other: Afib; Prior surgery; Surgery date: 6+ months; Surgery type: Pacer 3 years ago; Additional info: Eval pacemaker leads TECHNIQUE: Imaging protocol: Diagnostic computed tomography of the chest without contrast. Radiation optimization: All CT scans at this facility use at least one of these dose optimization techniques: automated exposure control; mA and/or kV adjustment per patient size (includes targeted exams where dose is matched to clinical indication); or iterative reconstruction. COMPARISON: CT angio chest PE protcl [id number] 10/16/2022 3:21 PM RADIATION DOSE METRICS: Total DLP (mGy-cm): 598.76 FINDINGS: Tubes, catheters and devices: A right-sided pacemaker is noted. One pacemaker lead is attached to the anterior wall of the right atrium. Another is attached to the intraventricular septum within the right ventricle. Lungs: Unremarkable. No consolidation. No masses. Pleural spaces: Unremarkable. No pneumothorax. No pleural effusion. Heart: Moderate cardiomegaly is noted.There is evidence of previous heart surgery with sternal sutures present. There is no evidence of coronary artery calcifications. Lymph nodes: Unremarkable. No enlarged lymph nodes. Vasculature: Unremarkable. No aortic aneurysm. Bones/joints: See Heart finding. Soft tissues: Unremarkable. CT/CT chest [facility] [id number] IMPRESSION: No acute findings.
[2024-02-26] MEDS: sodium chloride 0.9% 1,000 ML 60 ML IV (17:02)
[2024-02-26 17:43] LABS: NT Pro B Type Natriuretic Pept 1037 pg/mL (0-125); Thyroid Stimulating Hormone 2.26 uIU/mL (0.27-4.20)
[2024-02-26] MEDS: apixaban 5 mg Tablet PO (18:14)
--- NOTE | 2024-02-26 18:59 | PC.NURSE ---
Assumed care from Nano GARCIA at this time.
--- NOTE | 2024-02-26 19:24 | P.HP_ITS ---
Providers/Chief Complaint 2 Admitting Physician: Sally Carrington MD Primary Care Provider: Jamila Sinha NP Chief Complaint: passing out, elevated hr History of Present Illness Ana Maria Araya is a 53 year old female with history of A-fib, ASD repair, chronic anticoagulation, status post pacemaker placement, was seen in the ER few days ago for pacemaker interrogation which was unremarkable presented back with chief complaint of syncopal event. Patient is stating that since her pacemaker evaluation she has had 2 episode of syncope. Both episodes happen when she stood up from standing position. She has been experiencing mild chest soreness which she describing as chest discomfort since Monday it would only last for about 10 minutes, happens spontaneously without any relationship with coughing or exertional activity. She is not complaining active chest pain, no recent fever, nausea, vomiting or diarrhea. She is also endorsing some radiation of pain towards her left arm with numbness. She describes her syncopal event as initial lightheadedness followed by a fall. Mostly happens with change in position. In the ER she is chest pain-free, getting echo, recent pacemaker interrogation was unremarkable, will request orthostatic vitals, D-dimer, Review of Systems 2 Const: Denies: fever(s) Eyes: Denies: change in vision ENMT: Denies: throat pain Card: Reports: chest pain and lightheadedness Resp: Denies: dyspnea GI: Denies: abdominal pain : Denies: flank pain Musc: Reports: back pain Skin/Breast: Denies: rash or skin swelling Neuro: Denies: headache(s) Medications/Allergies Home Medications Medication Instructions Recorded Confirmed Last Taken Type apixaban 5 mg tablet (Eliquis) 5 mg PO BID 30 days #60 tabs 12/14/23 02/26/24 02/26/24 Rx furosemide 40 mg tablet (Lasix) 40 mg PO BID PRN weight gain 30 12/14/23 02/26/24 02/25/24 Rx days #60 tabs metoprolol tartrate 25 mg tablet 25 mg PO BID 30 days #60 tabs 12/14/23 02/26/24 02/26/24 Rx ondansetron 4 mg disintegrating 4 mg PO Q6H PRN nausea and 12/14/23 02/26/24 Unknown Rx tablet vomiting #30 tabs albuterol sulfate 90 mcg/actuation 2 puff inhalation 6XD PRN 01/24/24 02/26/24 Unknown Rx aerosol inhaler (Ventolin HFA) shortness of breath or wheezing #8.5 grams alprazolam 1 mg tablet 1 mg PO BID 30 days #60 tabs 02/23/24 02/26/24 02/26/24 Rx diltiazem HCl 30 mg tablet 30 mg PO BID tachycardia 30 days 02/24/24 02/26/24 02/26/24 Rx #60 tabs aspirin 81 mg tablet,delayed 81 mg PO QAM 02/26/24 02/26/24 02/26/24 History release atorvastatin 20 mg tablet 20 mg PO BEDTIME 02/26/24 02/26/24 02/25/24 History bupropion HCl 75 mg tablet 75 mg PO BID 02/26/24 02/26/24 02/26/24 History lansoprazole 30 mg capsule,delayed 30 mg PO QAM 02/26/24 02/26/24 02/26/24 History release loratadine 10 mg tablet (Claritin) 10 mg PO QAM 02/26/24 02/26/24 02/26/24 History oxycodone-acetaminophen 10 mg-325 See Rx Instructions .Route .COMPLEX 02/26/24 02/26/24 02/26/24 History mg tablet (Percocet) quetiapine 100 mg tablet (Seroquel) 100 mg PO BEDTIME insomnia 02/26/24 02/26/24 02/25/24 History Allergies Allergy/AdvReac Type Severity Reaction Status Date / Time Penicillins Allergy ALGY-Hives Verified 02/24/24 18:28 poison ana extract Allergy ALGY-Rash Verified 02/24/24 18:28 poison oak extract Allergy ALGY-Rash Verified 02/24/24 18:28 wasps Allergy ALGY-Rash Uncoded 02/13/23 14:58 PFSH Acute 2 PFSH: Medical History Atrial fibrillation/flutter Nephrolithiasis Pacemaker ASD (atrial septal defect) Family History Father Myocardial infarct Hypertension Mother Myocardial infarct Hypertension Grandmother Stroke Hypertension Sister Diabetes Social History Smoking and tobacco/nicotine status: never used tobacco/nicotine Vitals/I&O/Wt Last Vital Signs Temp 98.2 F 02/26/24 15:05 Pulse 98 02/26/24 19:21 Resp 17 02/26/24 15:38 BP 112/64 02/26/24 19:21 Pulse Ox 97 02/26/24 19:21 O2 Del Method Room Air 02/26/24 19:21 Weight last 48 hrs Weight 116.12 kg Physical Exam 2 Narrative: Mild signs of fluid overload Morbid obese female GCS 15 No active chest pain Awake and alert S1, S2 A-fib RVR, Abdomen distended Nontender Pleasant cooperative Nonfocal neuroexam Data 02/26/24 15:25 02/26/24 15:25 A&P Assessment and plan (1) Atrial fibrillation: Qualifiers: Atrial fibrillation type: unspecified Qualified Code(s): I48.91 - Unspecified atrial fibrillation (2) Syncope and collapse: Plan Syncopal events Recent PM interrogation unremarkable Will request echo and D-dimer Concern related to orthostatics Her syncopal events are preceded by lightheadedness mostly after changing position Continue Eliquis History of A-fib Continue AV naveed blocking agents Monitor for QTc interval Full code Cardiac diet Admit to telemetry floor Patient carries history of tachyarrhythmias requiring cardioversions in the past, A-fib RVR however heart rate is fluctuating between 1 10-1 20 Attestations 2 Medical Necessity Statement*: Anticipating discharge within 48 hours Diagnoses Atrial fibrillation, unspecified type I48.91 Atrial fibrillation type: unspecified Syncope and collapse R55
--- NOTE | 2024-02-26 19:36 | PC.NURSE ---
Report was called to JOSE Davison on Med-Surg. All questions and concerns were addressed at time of report.
[2024-02-26 20:24] LABS: Troponin(5th) Baseline < 6 ng/L (0-10)
[2024-02-26 21:25] LABS: D Dimer 1.25 ug/mLFEU (0-0.59)
[2024-02-26] MEDS: atorvastatin 40 mg Tablet PO (21:26)
[2024-02-26 22:00] LABS: Troponin 5 2HR 7.82 ng/L (0-10); Troponin 5 2HR Delta 1.82001 ABS# (0-10)
--- NOTE | 2024-02-26 22:02 | ECG_ITS ---
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 Measurements Intervals [place] Rate: 89 P: 0 OK: 0 QRS: 77 QRSD: 105 T: 98 QT: 359 QTc: 437 Interpretive Statements UNCERTAIN IRREGULAR RHYTHM ELECTRONIC VENTRICULAR PACEMAKER -- CONTOUR ANALYSIS BASED ON INTRINSIC RHYTHM INCOMPLETE RIGHT BUNDLE BRANCH BLOCK [90+ ms QRS DURATION, TERMINAL R IN V1/V2, 40+ ms S IN I/aVL/V4/V5/V6] ST DEVIATION AND MODERATE T-WAVE ABNORMALITY, CONSIDER ANTEROLATERAL ISCHEMIA [-0.1+ mV T-WAVE IN V3-V6] Compared to ECG 02/26/2024 14:59:54 Incomplete right bundle-branch block now present Possible ischemia now present Atrial flutter no longer present T-wave abnormality still present Electronically Signed On 02-27-2024 17:28:42 CDT by Juventino Chavez M.D. [id number]
[2024-02-26 23:45] LABS: Vitamin B12 364 pg/mL (232-1245)
[2024-02-27] VITALS (103 sets, daily range): BP systolic 118–156; BP diastolic 65–100; PULSE 66–119; RESP 9–27; TEMP 36.7–37.1; O2SAT 78–100
[2024-02-27] MEDS: morphine IR 15 mg Tablet PO ×3 (00:03→15:16)
--- NOTE | 2024-02-27 01:24 | PC.RESP ---
EKG ordered 02/26/2024 at 1929 and 2040 NOT COMPLETED DUE TO PATIENT BEING MOVED BETWEEN DEPARTMENTS/UNITS. RT NOT NOTIFIED OF STAT EKG ORDERS.
--- NOTE | 2024-02-27 01:29 | ECG_ITS ---
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 Measurements Intervals [place] Rate: 84 P: 0 WI: 0 QRS: 68 QRSD: 93 T: 89 QT: 374 QTc: 442 Interpretive Statements ATRIAL FIBRILLATION ELECTRONIC VENTRICULAR PACEMAKER -- CONTOUR ANALYSIS BASED ON INTRINSIC RHYTHM NONSPECIFIC ST & T-WAVE ABNORMALITY Compared to ECG 02/26/2024 22:02:14 Incomplete right bundle-branch block no longer present Possible ischemia no longer present T-wave abnormality still present Electronically Signed On 02-27-2024 17:28:23 CDT by Juventino Chavez M.D. [id number]
[2024-02-27 02:04] LABS: Troponin 5 6HR 6.76 ng/L (0-10); Troponin 5 6HR Delta 0.76001 ng/L (0-12)
[2024-02-27 04:07] LABS: Basophils % 0.7 %; Eosinophils # 0.1 10^3/uL (0.0-0.8); Eosinophils % 2.4 %; Hematocrit 37.7 % (36-47); Lymphocytes # 2.2 10^3/uL (0.8-4.8); Lymphocytes % 51.5 %; Mean Corpuscular HGB Conc 31.8 g/dL (30-55); Mean Corpuscular Volume 97.4 fl (85-98); Mean Platelet Volume 10.9 fL (7.4-10.4); Monocytes # 0.3 10^3/uL (0.2-0.9); Monocytes % 7.4 %; Nucleated Red Blood Cells % 0 %; Platelet Count 146 10^3/cmm (157-399); Red Blood Count 3.87 10^6/uL (3.85-5.65); Red Cell Distribution Width 13.5 % (12.1-15.1); White Blood Count 4.21 10^3/uL (3.29-11.43)
[2024-02-27 04:26] LABS: Alanine Aminotransferase < 5 U/L (0-33); Albumin Level 3.7 g/dL (3.5-5.2); Alkaline Phosphatase 86 U/L (35-105); Anion Gap 12.1 (5-19); Aspartate Amino Transferase 15 U/L (0-32); Blood Urea Nitrogen 16 mg/dL (6-20); Calcium 9.3 mg/dL (8.5-10.5); Carbon Dioxide 26 mmol/L (22-29); Chloride 106 mmol/L (98-107); Creatinine Clr Calc Pharmacy 97.0001; Globulin 2.9 g/dL (1.3-4.6); Glomerular Filtration Rate 65.2 mL/min (90-130); Glucose 99 mg/dL (65-115); Magnesium 1.9 mg/dL (1.7-2.3); Osmolality Calculated 291 mOsm/kg (285-295); Potassium 4.1 mmol/L (3.5-5.1); Sodium 140 mmol/L (136-145); Total Bilirubin 0.3 mg/dL (0.15-1.2); Total Protein 6.6 g/dL (6.6-8.7)
[2024-02-27] MEDS: aspirin 81 mg EC Tablet PO (05:43)
[2024-02-27] MEDS: pantoprazole DR 40 mg Tablet PO ×2 (05:43→07:56)
[2024-02-27] MEDS: dilTIAZem 30 mg Tablet PO ×2 (07:56→18:07)
[2024-02-27] MEDS: metoprolol tartrate 25 mg Tablet PO ×2 (07:56→18:07)
[2024-02-27] MEDS: apixaban 5 mg Tablet PO ×2 (07:56→18:07)
--- NOTE | 2024-02-27 09:01 | PM.CONSULT ---
Providers/Reason For Consult Consulting Physician/Specialty*: Juventino Chavez MD/ Cardiology Reason for Consult*: Atrial fibrillation/ Syncope Requesting Physician: Dr Carrington Attending Physician: Sally Carrington MD Primary Care Provider: Jamila Sinha NP History of Present Illness History of Present Illness Ana Maria Araya is a 53 year old female with past medical history of atrial fibrillation on Eliquis who had second visit to ER initially for A-fib with RVR and now with syncopal episodes. Regarding the patient she had syncope when she stood up from sitting position. [place] dizzy before. She has a history of ASD repaired and has permanent pacemaker as well. Pacemaker interrogation not showing abnormality. She is currently in atrial fibrillation with controlled heart rate. However intermittently does become uncontrolled. Review of Systems Const: Denies: fever(s) Eyes: Denies: change in vision ENMT: Denies: throat pain Card: Reports: chest pain and lightheadedness Resp: Denies: dyspnea GI: Denies: abdominal pain : Denies: flank pain Musc: Reports: back pain Skin/Breast: Denies: rash or skin swelling Neuro: Denies: headache(s) Medications/Allergies Home Medications Medication Instructions Recorded Confirmed Last Taken Type apixaban 5 mg tablet (Eliquis) 5 mg PO BID 30 days #60 tabs 12/14/23 02/26/24 02/26/24 Rx furosemide 40 mg tablet (Lasix) 40 mg PO BID PRN weight gain 30 12/14/23 02/26/24 02/25/24 Rx days #60 tabs metoprolol tartrate 25 mg tablet 25 mg PO BID 30 days #60 tabs 12/14/23 02/26/24 02/26/24 Rx ondansetron 4 mg disintegrating 4 mg PO Q6H PRN nausea and 12/14/23 02/26/24 Unknown Rx tablet vomiting #30 tabs albuterol sulfate 90 mcg/actuation 2 puff inhalation 6XD PRN 01/24/24 02/26/24 Unknown Rx aerosol inhaler (Ventolin HFA) shortness of breath or wheezing #8.5 grams alprazolam 1 mg tablet 1 mg PO BID 30 days #60 tabs 02/23/24 02/26/24 02/26/24 Rx diltiazem HCl 30 mg tablet 30 mg PO BID tachycardia 30 days 02/24/24 02/26/24 02/26/24 Rx #60 tabs aspirin 81 mg tablet,delayed 81 mg PO QAM 02/26/24 02/26/24 02/26/24 History release atorvastatin 20 mg tablet 20 mg PO BEDTIME 02/26/24 02/26/24 02/25/24 History bupropion HCl 75 mg tablet 75 mg PO BID 02/26/24 02/26/24 02/26/24 History lansoprazole 30 mg capsule,delayed 30 mg PO QAM 02/26/24 02/26/24 02/26/24 History release loratadine 10 mg tablet (Claritin) 10 mg PO QAM 02/26/24 02/26/24 02/26/24 History oxycodone-acetaminophen 10 mg-325 See Rx Instructions .Route .COMPLEX 02/26/24 02/26/24 02/26/24 History mg tablet (Percocet) quetiapine 100 mg tablet (Seroquel) 100 mg PO BEDTIME insomnia 02/26/24 02/26/24 02/25/24 History Allergies Allergy/AdvReac Type Severity Reaction Status Date / Time Penicillins Allergy ALGY-Hives Verified 02/24/24 18:28 poison ana extract Allergy ALGY-Rash Verified 02/24/24 18:28 poison oak extract Allergy ALGY-Rash Verified 02/24/24 18:28 wasps Allergy ALGY-Rash Uncoded 02/13/23 14:58 Current Medications Generic Name Dose Route Start Last Admin Trade Name Freq PRN Reason Stop Dose Admin Apixaban 5 mg 02/26/24 18:00 02/27/24 07:56 Apixaban 5 Mg Tablet PO 5 mg BID PAUL Administration Aspirin 81 mg 02/27/24 06:00 02/27/24 05:43 Aspirin 81 Mg Ec Tablet PO 81 mg QAM PAUL Administration Atorvastatin Calcium 40 mg 02/26/24 21:00 02/26/24 21:26 Atorvastatin 40 Mg Tablet PO 40 mg BEDTIME PAUL Administration Diltiazem HCl 30 mg 02/27/24 09:00 02/27/24 07:56 Diltiazem 30 Mg Tablet PO 30 mg BID PAUL Administration Metoprolol Tartrate 25 mg 02/27/24 09:00 02/27/24 07:56 Metoprolol Tartrate 25 Mg Tablet PO 25 mg BID PAUL Administration Morphine Sulfate 15 mg 02/26/24 21:04 02/27/24 07:59 Morphine Ir 15 Mg Tablet PO 15 mg Q6H PRN Administration MODERATE PAIN Non-Formulary Medication 75 mg 02/26/24 18:00 02/26/24 21:25 Bupropion Hcl PO Not Given BID PAUL Pantoprazole Sodium 40 mg 02/27/24 09:00 02/27/24 07:[address] 40 Mg Tablet PO 40 mg DAILY PAUL Administration Pantoprazole Sodium 40 mg 02/27/24 06:00 02/27/24 05:[address] 40 Mg Tablet PO 40 mg QAM PAUL Administration PFSH Acute PFSH: Medical History Atrial fibrillation/flutter Nephrolithiasis Pacemaker ASD (atrial septal defect) Family History Father Myocardial infarct Hypertension Mother Myocardial infarct Hypertension Grandmother Stroke Hypertension Sister Diabetes Social History Smoking and tobacco/nicotine status: never used tobacco/nicotine Vitals/I&O/Wt Last Vital Signs Temp 98.8 F 02/27/24 04:00 Pulse 79 02/27/24 08:15 Resp 16 02/27/24 08:15 BP 123/100 02/27/24 08:00 Pulse Ox 95 02/27/24 08:15 O2 Del Method Room Air 02/27/24 08:15 02/26/24 02/27/24 02/27/24 22:59 06:59 14:59 Intake Total 200 / 200 Output Total 750 / 750 Balance -550 / -550 Weight last 48 hrs Weight 255 lb Weight 255 lb Weight 256 lb Physical Exam Narrative: GENERAL: Patient is alert, awake and oriented x3. [] NECK: No jugular vein distension. [] HEENT: No cyanosis. No icterus. No pallor. [] HEART: Regular S1 and S2. No murmur, rub or gallop. [] LUNGS: Clear to auscultate bilaterally. [] CENTRAL NERVOUS SYSTEM: Grossly nonfocal. [] EXTREMITIES: Lower extremities with 1+ edema bilaterally. Data 02/28/24 02:54 02/28/24 02:54 A&P Assessment and plan (1) Atrial fibrillation: Qualifiers: Atrial fibrillation type: unspecified Qualified Code(s): I48.91 - Unspecified atrial fibrillation (2) Congestive heart failure due to cardiomyopathy: (3) Syncope: Plan Patient's syncopal episodes likely secondary to orthostatic hypotension. Will try to convert her rhythm back to normal. That may decrease need for return to medications. She was in A-fib with RVR when presented this time as well. We will start amiodarone drip. If does not convert back to normal rhythm in 1 to 2 days, we will plan on cardioversion. Continue anticoagulation with Eliquis. Continue telemonitoring. Echo shows moderately reduced LV and RV function. May need ischemic work up. Can be done as an outpatient Thank you for involving us with care of this patient. We will continue to follow. Please call with questions Consult Attestations Medical Necessity Statement: Care expected to cross 2 midnights. Coding Level of Care Code Acute Code for [facility] Diagnoses Atrial fibrillation, unspecified type I48.91 Atrial fibrillation type: unspecified Congestive heart failure due to cardiomyopathy I50.9; I42.9 Syncope R55
--- NOTE | 2024-02-27 12:23 | P.PN_ITS ---
Subjective 2 Subjective: seen today persistent afib pt feels better Vitals/I&O/Wt Last Vital Signs Temp 98.8 F 02/27/24 04:00 Pulse 79 02/27/24 08:15 Resp 16 02/27/24 08:15 BP 123/100 02/27/24 08:00 Pulse Ox 95 02/27/24 08:15 O2 Del Method Room Air 02/27/24 08:15 02/26/24 02/27/24 02/27/24 22:59 06:59 14:59 Intake Total 200 / 200 Output Total 750 / 750 Balance -550 / -550 Weight last 48 hrs Weight 115.666 kg Weight 115.666 kg Weight 116.12 kg Physical Exam 2 Narrative: Morbid obese female GCS 15 No active chest pain Awake and alert S1, S2 A-fib RVR, Abdomen distended Nontender Pleasant cooperative Nonfocal neuroexam Data 02/27/24 03:45 02/27/24 03:45 A&P Assessment and plan (1) Atrial fibrillation: Qualifiers: Atrial fibrillation type: unspecified Qualified Code(s): I48.91 - Unspecified atrial fibrillation (2) Syncope and collapse: Plan Afib, rate controlled Syncopal events Recent PM interrogation unremarkable echo pending, dimer pending orthos pending Her syncopal events are preceded by lightheadedness mostly after changing position Continue Eliquis History of A-fib Continue AV naveed blocking agents Monitor for QTc interval Full code Cardiac diet Admit to telemetry floor start amio bolus and amiodarone drip if remains in afib, will go for cardioversion discussed with cardiology recs appreciated. Patient carries history of tachyarrhythmias requiring cardioversions in the past, A-fib RVR however heart rate is fluctuating between 1 10-1 20 Attestations 2 Medical Necessity Statement*: > 2 midnight stay for mgmt of afib. on amio drip and may require cardioversion Diagnoses Atrial fibrillation, unspecified type I48.91 Atrial fibrillation type: unspecified Syncope and collapse R55
--- NOTE | 2024-02-27 15:51 | PC.NURSE ---
Pt was found with a bottle of percocet 10-326 and alprazolam 1mg in her bed under the blankets. The patient had also been getting PRN pain medications. Large quantities of both home medications were missing.
[2024-02-27] MEDS: atorvastatin 40 mg Tablet PO (20:24)
--- NOTE | 2024-02-27 22:48 | PC.NURSE ---
Patient home medications xanax and percocet locked in pyxis. Tamper resistant tape is intact on both bottles.
[2024-02-28 03:35] LABS: Basophils % 0.5 %; Eosinophils # 0.1 10^3/uL (0.0-0.8); Eosinophils % 2.2 %; Lymphocytes # 1.8 10^3/uL (0.8-4.8); Lymphocytes % 43.4 %; Mean Corpuscular HGB Conc 31.5 g/dL (30-55); Mean Corpuscular Hemoglobin 30.6 pg (27-33); Mean Corpuscular Volume 97.1 fl (85-98); Mean Platelet Volume 11.2 fL (7.4-10.4); Monocytes # 0.2 10^3/uL (0.2-0.9); Monocytes % 5.8 %; Neutrophils # 1.98 10^3/uL (1.8-7.7); Neutrophils % 48.1 %; Nucleated Red Blood Cells % 0 %; Platelet Count 146 10^3/cmm (157-399); Red Blood Count 4.12 10^6/uL (3.85-5.65); Red Cell Distribution Width 13.2 % (12.1-15.1); White Blood Count 4.12 10^3/uL (3.29-11.43)
[2024-02-28 03:57] LABS: Anion Gap 12.3 (5-19); Blood Urea Nitrogen 15 mg/dL (6-20); Calcium 9.4 mg/dL (8.5-10.5); Carbon Dioxide 26 mmol/L (22-29); Chloride 105 mmol/L (98-107); Creatinine Clr Calc Pharmacy 88.8474; Glomerular Filtration Rate 57.8 mL/min (90-130); Glucose 110 mg/dL (65-115); Magnesium 1.9 mg/dL (1.7-2.3); Osmolality Calculated 289 mOsm/kg (285-295); Potassium 4.3 mmol/L (3.5-5.1); Sodium 139 mmol/L (136-145)
[2024-02-28 04:00] VITALS: BP 121/76; PULSE 89; RESP 16; TEMP 36.5; O2SAT 92
[2024-02-28 05:11] VITALS: PULSE 95
[2024-02-28] MEDS: pantoprazole DR 40 mg Tablet PO (05:32)
[2024-02-28] MEDS: aspirin 81 mg EC Tablet PO (05:32)
[2024-02-28 07:13] VITALS: BP 118/87; PULSE 101; RESP 30; TEMP 36.7; O2SAT 96
--- NOTE | 2024-02-28 07:48 | PM.PN ---
Vitals/I&O/Wt Last Vital Signs Temp 98.1 F 02/28/24 07:13 Pulse 101 H 02/28/24 07:13 Resp 30 H 02/28/24 07:13 BP 118/87 02/28/24 07:13 Pulse Ox 96 02/28/24 07:13 O2 Del Method Room Air 02/28/24 07:13 02/27/24 02/28/24 02/28/24 22:59 06:59 14:59 Intake Total 1120 / 1120 200 / 1320 Balance 1120 / 880 200 / 1080 Weight last 48 hrs Weight 261 lb 14.4 oz Weight 263 lb 6.4 oz Weight 255 lb Weight 255 lb Weight 256 lb Data 02/28/24 02:54 02/28/24 02:54 Coding Level of Care Code Acute Code for [facility]
--- NOTE | 2024-02-28 07:55 | PC.NURSE ---
Addendum entered by Joe Romano RN 02/28/24 08:42: I notified Dr. Carrington that the pt wants to leave AMA and Dr. Carrington voalted back to me that she was not surprised and to tell the pt that she is on an amio drip and that she recommends that she stays. When I went back to the pt to tell her this, I noticed that the pt was not on an amio drip. The pt stated that her sister was coming to get her at this time and that she would be going to [facility] in [place]. She then appeared upset and wanted to show me a video in her phone that she said that she was told by the ER doctor to record showing the telemonitor showing her rhythm was A. Flutter and that he would mash down on her Pacemaker and apparently some changes were taking place. All I noticed on the vide was that she was in A. Flutter and some pacer spikes. Upon further investigation on the amio drip, it was noted in Dr. Carrington's progress note that an amio bolus and drip were ordered but looking at the current orders and order history I did not see any amio orders of any kind since the pt has been here. I then saw Dr. Chavez in the hallway and notified him that the pt had left AMA as well and he acknowledged. Original Note: I went in to meet the pt and said Good morning . She looked at me and immediately said, I want to go home . I asked You mean you want to leave and sign out AMA... you are here to be treated for your a. fib . She said, I've been here 3 days and nothing has been done other than they moved me from room to room>
--- NOTE | 2024-02-28 08:16 | PC.NURSE ---
PT signed the AMA form at 0805 and was given her personal medications that she had brought from home that were locked in the pyInvenras tower. Pt ambulated per self out of the room fully dressed and IV was removed in her R. FA.
--- NOTE | 2024-02-28 09:20 | PM.DCS ---
Discharge Providers Date of Admission: 02/27/24 12:26 Date of Discharge: February 28, 2024 Attending Provider at Admission: Sally Carrington MD Attending Provider at Discharge: Sally Carrington MD Primary Care Provider: Jamila Sinha NP Diagnoses at Discharge Discharge Diagnosis (1) Atrial fibrillation: Status: Acute Qualifiers: Atrial fibrillation type: unspecified Qualified Code(s): I48.91 - Unspecified atrial fibrillation (2) Congestive heart failure due to cardiomyopathy: Status: Acute Permanent problem details: Systolic. (3) Syncope: Status: Acute Reason for Visit Reason for Visit: passing out, elevated hr Hospital Course Hospital Course Patient signed out AGAINST MEDICAL ADVICE this morning before she could be seen by a physician. Discharge Data Studies Completed and Pending Completed Studies During Hospitalization Category Date Time Status CT chest wo con [id number] Stat Cat Scan 02/26/24 16:54 Completed XR chest 1V portable [id number] Stat Exams 02/26/24 14:56 Completed CV. echo complete* [id number] Stat Ultrasound 02/26/24 16:54 Completed Radiology Impressions Chest X-Ray 02/26/24 14:56 IMPRESSION: Stable chest with no acute abnormality. Chest CT 02/26/24 16:54 IMPRESSION: No acute findings. Laboratory Results WBC 4.12 10^3/uL (3.29-11.43) 02/28/24 02:54 RBC 4.12 10^6/uL (3.85-5.65) 02/28/24 02:54 Hgb 12.60 g/dL (11.27-16.99) 02/28/24 02:54 Hct 40.0 % (36-47) 02/28/24 02:54 MCV 97.1 fl (85-98) 02/28/24 02:54 MCH 30.6 pg (27-33) 02/28/24 02:54 MCHC 31.5 g/dL (30-55) 02/28/24 02:54 RDW 13.2 % (12.1-15.1) 02/28/24 02:54 Plt Count 146 10^3/cmm (157-399) L 02/28/24 02:54 MPV 11.2 fL (7.4-10.4) H 02/28/24 02:54 Neut % (Auto) 48.1 % 02/28/24 02:54 Lymph % (Auto) 43.4 % 02/28/24 02:54 [place] % (Auto) 5.8 % 02/28/24 02:54 Eos % (Auto) 2.2 % 02/28/24 02:54 Baso % (Auto) 0.5 % 02/28/24 02:54 Neut # (Auto) 1.98 10^3/uL (1.8-7.7) 02/28/24 02:54 Lymph # (Auto) 1.8 10^3/uL (0.8-4.8) 02/28/24 02:54 [place] # (Auto) 0.2 10^3/uL (0.2-0.9) 02/28/24 02:54 Eos # (Auto) 0.1 10^3/uL (0.0-0.8) 02/28/24 02:54 Baso # (Auto) 0.0 10^3/uL (0.0-0.1) 02/28/24 02:54 Nucleated RBC % (auto) 0 % 02/28/24 02:54 Nucleated RBCs # 0.0 /100WBC 02/28/24 02:54 PT 13.00 SECONDS (12.1-14.9) 02/26/24 15:25 INR 0.96 (0.8-1.2) 02/26/24 15:25 D-Dimer 1.25 ug/mLFEU (0-0.59) H 02/26/24 15:25 Sodium 139 mmol/L (136-145) 02/28/24 02:54 Potassium 4.3 mmol/L (3.5-5.1) 02/28/24 02:54 Chloride 105 mmol/L (98-107) 02/28/24 02:54 Carbon Dioxide 26 mmol/L (22-29) 02/28/24 02:54 Anion Gap 12.3 (5-19) 02/28/24 02:54 BUN 15 mg/dL (6-20) 02/28/24 02:54 Creatinine 1.0 mg/dL (0.5-0.9) H 02/28/24 02:54 GFR Calculation 57.8 mL/min (90-130) L 02/28/24 02:54 Glucose 110 mg/dL (65-115) 02/28/24 02:54 Calculated Osmolality 289 mOsm/kg (285-295) 02/28/24 02:54 Calcium 9.4 mg/dL (8.5-10.5) 02/28/24 02:54 Magnesium 1.9 mg/dL (1.7-2.3) 02/28/24 02:54 Total Bilirubin 0.3 mg/dL (0.15-1.2) 02/27/24 03:45 AST 15 U/L (0-32) 02/27/24 03:45 ALT < 5 U/L (0-33) 02/27/24 03:45 Alkaline Phosphatase 86 U/L (35-105) 02/27/24 03:45 Troponin T Baseline < 6 ng/L (0-10) 02/26/24 19:59 Troponin T 120 Minute 7.82 ng/L (0-10) 02/26/24 21:41 Delta Troponin T 1.22843 ABS# (0-10) 02/26/24 21:41 Troponin T Hi Sens 6Hr 6.76 ng/L (0-10) 02/27/24 01:35 Troponin T Hi Sens 6Hr Delta 0.45235 ng/L (0-12) 02/27/24 01:35 NT-Pro-B Natriuret Pep 1037 pg/mL (0-125) H 02/26/24 15:25 Total Protein 6.6 g/dL (6.6-8.7) 02/27/24 03:45 Albumin 3.7 g/dL (3.5-5.2) 02/27/24 03:45 Globulin 2.9 g/dL (1.3-4.6) 02/27/24 03:45 Vitamin B12 364 pg/mL (232-1245) 02/26/24 15:25 TSH 2.26 uIU/mL (0.27-4.20) 02/26/24 15:25 Vitals Last Vital Signs Temp 98.1 F 02/28/24 07:13 Pulse 101 H 02/28/24 07:13 Resp 30 H 02/28/24 07:13 BP 118/87 02/28/24 07:13 Pulse Ox 96 02/28/24 07:13 O2 Del Method Room Air 02/28/24 07:13 Discharge Plan Discharge Patient Disposition: Left Against Medical Advice Condition: Stable Prescriptions: No Action albuterol sulfate [Ventolin HFA] 90 mcg/actuation HFA aerosol inhaler 2 puff inhalation 6XD PRN (Reason: shortness of breath or wheezing) Qty: 8.5 3RF Eliquis 5 mg tablet 5 mg PO BID 30 Days Qty: 60 3RF Lasix 40 mg tablet 40 mg PO BID PRN (Reason: weight gain) 30 Days Qty: 60 3RF metoprolol tartrate 25 mg tablet 25 mg PO BID 30 Days Qty: 60 3RF ondansetron 4 mg tablet,disintegrating 4 mg PO Q6H PRN (Reason: nausea and vomiting) Qty: 30 0RF alprazolam 1 mg tablet 1 mg PO BID 30 Days Qty: 60 0RF diltiazem HCl 30 mg tablet 30 mg PO BID 30 Days Qty: 60 3RF lansoprazole 30 mg capsule,delayed release(DR/EC) 30 mg PO QAM atorvastatin 20 mg tablet 20 mg PO BEDTIME quetiapine [Seroquel] 100 mg tablet 100 mg PO BEDTIME bupropion HCl 75 mg tablet 75 mg PO BID Aspir-81 81 mg Tablet,Delayed Release (Dr/Ec) 81 mg PO QAM Percocet 10-325 mg Tablet See Rx Instructions .ROUTE .COMPLEX Rx Instructions: take one tab po up to five times a day-(takes @08:00,13:00,17:00,21:00 and if wakes up may take one more tab) Claritin 10 mg tablet 10 mg PO QAM Referrals: Jamila Sinha NP [Primary Care Provider] - Discharge Attestations Time Spent in Discharge Care*: less than 30 min Status at Discharge: Cognitive status at discharge: cognitively intact, Behavioral status at discharge: cooperative, Quality Metrics Clinical Quality Measures [ No reported AMI, CVA or VTE this stay] Coding Level of Care Code Acute Code for [facility] Diagnoses Atrial fibrillation, unspecified type I48.91 Atrial fibrillation type: unspecified Congestive heart failure due to cardiomyopathy I50.9; I42.9 Syncope R55
== END 2024-02-28 08:15 | disposition left against medical advice (07) | DRG 309 ==
LOC: ER 17:02 → MEDSURG 18:23 → ICU 20:58 → CSU 02-27 15:28 → ICU 02-27 15:33 → CSU 02-27 22:37
PROVIDERS: Emergency Medicine; Internal Medicine; Admitting Provider Internal Medicine; Emergency Provider Internal Medicine; PCP Nurse Practitioner Family; Visit Provider Internal Medicine
DX: I48.91 Unspecified atrial fibrillation (principal); I50.22 Chronic systolic (congestive) heart failure; I11.0 Hypertensive heart disease with heart failure; I42.9 Cardiomyopathy, unspecified; Z95.0 Presence of cardiac pacemaker; E78.00 Pure hypercholesterolemia, unspecified; Z79.01 Long term (current) use of anticoagulants; N20.0 Calculus of kidney; I95.1 Orthostatic hypotension; Z79.82 Long term (current) use of aspirin
CPT/HCPCS: 36415; 71045; 71250; 80048; 80053; 82607; 83735; 83880; 84443; 84484; 85025; 85378; 85610; 93005; 93306; 96374; 96376; 99285; G0378; J3490; J7030

== ENCOUNTER → 2024-06-24 11:03 | Outpatient (BNVA) | payer OTHER, SELFPAY | PROVIDERS: PCP Nurse Practitioner Family; Visit Provider Nurse Practitioner Family | DX: Z79.899 Other long term (current) drug therapy (principal); N39.0 Urinary tract infection, site not specified; E78.2 Mixed hyperlipidemia; F41.9 Anxiety disorder, unspecified; F32.9 Major depressive disorder, single episode, unspecified | CPT/HCPCS: 80053; 80061; 80307; 85025 ==

== ENCOUNTER 2024-11-16 21:23 | Emergency (ER) | payer SELFPAY ==
[2024-11-16 21:32] VITALS: BP 111/75; PULSE 73; RESP 20; TEMP 38.3; O2SAT 96; BMI 32.5
--- NOTE | 2024-11-16 21:36 | ECG_ITS ---
[facility] Test Date: 2024-11-16 Pat Name: Ana Maria Araya Department: Room: Gender: Female [employer] Attendant: : 1970 Requested By: Kelvin Nevarez Order Number: [id number] Kinjal MD: JEANIE HAYDEN Measurements Intervals [place] Rate: 74 P: -83 NC: 78 QRS: 85 QRSD: 94 T: 251 QT: 347 QTc: 386 Interpretive Statements ELECTRONIC A[employer]IAL PACEM[employer]ER ST DEVIATION AND MODERATE T-WAVE ABNORMALITY, CONSIDER ANTEROLATERAL ISCHEMIA [-0.1+ mV T-WAVE IN V3-V6] Compared to ECG 02/27/2024 02:23:42 Possible ischemia now present Atrial fibrillation no longer present Ventricular-paced complex(es) or rhythm no longer present T-wave abnormality still present Electronically Signed On 11-18-2024 23:14:15 RUNNER OUT by JEANIE HAYDEN [email or web address]
--- NOTE | 2024-11-16 22:30 | XRR_ITS ---
PROCEDURE INFORMATION: Exam: XR Chest Exam date and time: 11/16/2024 10:38 PM Age: 54 years old Clinical indication: Cough and fever; Prior surgery; Surgery date: 6+ months; Surgery type: Cabg, pacemaker; Patient HX: Fever; Congestion; Flu +; Additional info: Fever; Congestion; Flu + TECHNIQUE: Imaging protocol: Radiologic exam of the chest. Views: 1 view. COMPARISON: CT chest [facility] [id number] 02/26/2024 5:08 PM FINDINGS: Tubes, catheters and devices: Right-sided cardiac pacemaker device. Lungs: No focal consolidation. Pleural spaces: Unremarkable. No pleural effusion. No pneumothorax. Heart/Mediastinum: Unremarkable. No cardiomegaly. Bones/joints: Unremarkable. XR/XR chest 1V portable [id number] IMPRESSION: No focal consolidation.
[2024-11-16 22:35] LABS: Covid PCR NEGATIVE (Negative); Influenza A POSITIVE (Negative); Influenza B NEGATIVE (Negative); Respiratory Syncytial Virus Ce NEGATIVE (Negative)
--- NOTE | 2024-11-16 22:49 | W.ED.URI ---
HPI - URI/Sore Throat General: Chief Complaint: Upper Respiratory Infection Stated Complaint: SOB Time Seen by Provider: 11/16/24 22:23 Source: patient and family Mode of arrival: ambulatory Limitations: no limitations History of Present Illness: Patient tried feeling bad yesterday afternoon around 2:00. Cough fever chills headache and general myalgias. Today just prior arrival reports her temperature was 103.5 reports she also did a home test and her flu B and COVID was positive. MD elicited complaint: fever and cough Related Data Home Medications Medication Instructions Recorded Confirmed aspirin 81 mg tablet,delayed 81 mg PO QAM 02/26/24 07/25/24 release oxycodone-acetaminophen 10 mg-325 See Rx Instructions .Route .COMPLEX 02/26/24 07/25/24 mg tablet (Percocet) Previous Rx's Medication Instructions Recorded metoprolol tartrate 25 mg tablet 25 mg PO BID 30 days #60 tabs 12/14/23 ondansetron 4 mg disintegrating 4 mg PO Q6H PRN nausea and 12/14/23 tablet vomiting #30 tabs diltiazem HCl 30 mg tablet 30 mg PO BID tachycardia 30 days 02/24/24 #60 tabs apixaban 5 mg tablet (Eliquis) 5 mg PO BID 30 days #60 tabs 05/24/24 atorvastatin 20 mg tablet See Rx Instructions .Route 05/24/24 .COMPLEX #30 tabs lansoprazole 30 mg capsule,delayed See Rx Instructions .Route 05/24/24 release .COMPLEX #30 caps albuterol sulfate 90 mcg/actuation See Rx Instructions .Route 06/19/24 aerosol inhaler .COMPLEX #8.5 grams loratadine 10 mg tablet See Rx Instructions .Route 06/19/24 .COMPLEX #90 tabs alprazolam 1 mg tablet 1 mg PO BID 30 days #60 tabs 06/24/24 nitrofurantoin 100 mg PO Q12H 7 days #14 caps 06/24/24 monohydrate/macrocrystals 100 mg capsule (Macrobid) bupropion HCl 75 mg tablet See Rx Instructions .Route 07/17/24 .COMPLEX #60 tabs furosemide 40 mg tablet See Rx Instructions .Route 07/17/24 .COMPLEX #60 tabs quetiapine 100 mg tablet See Rx Instructions .Route 09/13/24 .COMPLEX #30 tabs azithromycin 250 mg tablet See Rx Instructions PO .COMPLEX #6 11/17/24 tabs baloxavir marboxil 40 mg tablet 40 mg PO ONCE #1 tab 11/17/24 (Xofluza) ondansetron 4 mg disintegrating 4 mg PO Q8H PRN nausea and 11/17/24 tablet vomiting 5 days #20 tabs Allergies Allergy/AdvReac Type Severity Reaction Status Date / Time Penicillins Allergy ALGY-Hives Verified 02/24/24 18:28 poison ana extract Allergy ALGY-Rash Verified 02/24/24 18:28 poison oak extract Allergy ALGY-Rash Verified 02/24/24 18:28 venom-wasp Allergy ALGY-Rash Verified 08/28/24 12:57 Review of Systems General: Reports: 10 or more systems reviewed and unremarkable except in HPI and below PFSH ED PFSH: Medical History Atrial fibrillation/flutter Nephrolithiasis Pacemaker ASD (atrial septal defect) Family History Father Myocardial infarct Hypertension Mother Myocardial infarct Hypertension Grandmother Stroke Hypertension Sister Diabetes Social History Smoking and tobacco/nicotine status: never used tobacco/nicotine Physical Exam Const: COMMON NORMALS: no acute distress, average body habitus, patient oriented x3, healthy appearing, alert and well nourished GENERAL APPEARANCE: well kempt, well developed and ill appearing HENMT: COMMON NORMALS: normocephalic, atraumatic, external ears normal and moist oral mucous membranes HEAD & SCALP: normocephalic and atraumatic EXTERNAL EAR: Yes external ears normal Eye: COMMON NORMALS: Equal, round and reactive pupils present, EOMs intact bilaterally and conjunctivae normal CONJUNCTIVA: Yes conjunctivae normal PUPIL: Yes Equal, round and reactive pupils present Neck/C-Spine: COMMON NORMALS: full ROM, no lymphadenopathy and supple Chest: CHEST: Yes Symmetrical chest wall rise and No Surgical scars present (Chest) Resp: COMMON NORMALS: normal respiratory effort, No retractions, No use of accessory muscles and clear to auscultation bilaterally AUSCULTATION: clear to auscultation bilaterally Cardio: COMMON NORMALS: regular rate, regular rhythm, S1 normal heart sound present, S2 normal heart sound present, No gallops present (Cardio), No clicks present (Cardio), No murmurs present (Cardio) and No rub (Cardio) RATE: regular rate RHYTHM: regular rhythm HEART SOUNDS: S1 normal heart sound present, S2 normal heart sound present and no murmurs PERIPHERAL PULSES: other (Radial pulses 2+ and symmetric) GI: COMMON NORMALS: Soft to palpation, non-tender and no masses INSPECTION: No abdominal distension PALPATION: Yes Soft to palpation, No Guarding due to palpation present (GI) and No Rebound tenderness present : COMMON NORMALS: Yes no CVA tenderness BLADDER/KIDNEY EXAM: Yes no CVA tenderness Back/Pelvis: COMMON NORMALS: no CVA tenderness Extremity: COMMON NORMALS: normal to inspection, full ROM, capillary refill normal and no clubbing, cyanosis or edema Neuro: COMMON NORMALS: patient oriented x3 SENSORIUM/ORIENTATION: Yes alert Psych: APPEARANCE: Yes well kempt Skin: COMMON NORMALS: no rashes or lesions noted, no wounds, turgor normal and no jaundice GENERAL SKIN EXAM: no rashes or lesions noted and turgor normal Course Reevaluation(s): Reevaluation #1: Patient reevaluated, doing well, O2 sats 96% and greater. Discussed results, patient expresses understanding will be discharged. Time: 00:35 Vital Signs: Vital signs: Vital Signs Temperature 100.9 F H 11/16/24 21:32 Pulse Rate 65 11/17/24 00:35 Respiratory Rate 16 11/17/24 00:35 Blood Pressure 129/52 11/17/24 00:35 Pulse Oximetry 97 11/17/24 00:35 Oxygen Delivery Me thod Room Air 11/17/24 00:35 MDM - URI/Sore Throat Medical Decision Making Personally reviewed chest x-ray, does have some increased mild atelectasis versus infiltrate, no obvious geovanni consolidation. Also is flu positive. Flu a positive. Discussed we will start azithromycin in case that area is trying to develop into a pneumonia and will prescribe Zofran for nausea. 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 Differential Diagnosis Likely upper respiratory infection, viral infection and influenza Medical Records I reviewed the patient's medical records. Lab Data Radiology Impressions Chest X-Ray 11/16/24 22:30 IMPRESSION: No focal consolidation. Laboratory Results Coronavirus (PCR) Negative (Negative) 11/16/24 21:45 Influenza A (PCR) Positive (Negative) 11/16/24 21:45 Influenza Type B (PCR) Negative (Negative) 11/16/24 21:45 RSV (PCR) Negative (Negative) 11/16/24 21:45 All radiology interpretation(s) finalized by discharge ED provider radiology interpretation(s): As above Discharge Plan Discharge Patient Disposition: Home Clinical Impression: Influenza A Condition: Stable Prescriptions: New azithromycin 250 mg tablet See Rx Instructions .ROUTE .COMPLEX Qty: 6 0RF Rx Instructions: For 250 mg dose pack: take 500 mg today (day 1), then 250 mg for 4 days (days 2-5) Xofluza 40 mg tablet 40 mg PO ONCE Qty: 1 0RF ondansetron 4 mg tablet,disintegrating 4 mg PO Q8H PRN (Reason: nausea and vomiting) 5 Days Qty: 20 0RF No Action alprazolam 1 mg tablet 1 mg PO BID 30 Days Qty: 60 0RF nitrofurantoin monohyd/m-cryst [Macrobid] 100 mg capsule 100 mg PO Q12H 7 Days Qty: 14 0RF Rx Instructions: must administer with a meal/food metoprolol tartrate 25 mg tablet 25 mg PO BID 30 Days Qty: 60 3RF ondansetron 4 mg tablet,disintegrating 4 mg PO Q6H PRN (Reason: nausea and vomiting) Qty: 30 0RF Eliquis 5 mg tablet 5 mg PO BID 30 Days Qty: 60 3RF atorvastatin 20 mg tablet See Rx Instructions .ROUTE .COMPLEX Qty: 30 3RF Dose Instruction: TAKE ONE TABLET BY MOUTH EVERY NIGHT AT BEDTIME Rx Instructions: TAKE ONE TABLET BY MOUTH EVERY NIGHT AT BEDTIME lansoprazole 30 mg capsule,delayed release(DR/EC) See Rx Instructions .ROUTE .COMPLEX Qty: 30 3RF Dose Instruction: TAKE ONE CAPSULE BY MOUTH DAILY Rx Instructions: TAKE ONE CAPSULE BY MOUTH DAILY albuterol sulfate 90 mcg/actuation HFA aerosol inhaler See Rx Instructions .ROUTE .COMPLEX Qty: 8.5 1RF Dose Instruction: INHALE TWO PUFFS into lungs six times DAILY NEEDED FOR SHORTNESS OF BREATH OR wheezing Rx Instructions: INHALE TWO PUFFS into lungs six times DAILY NEEDED FOR SHORTNESS OF BREATH OR wheezing loratadine 10 mg tablet See Rx Instructions .ROUTE .COMPLEX Qty: 90 1RF Dose Instruction: TAKE ONE TABLET BY MOUTH DAILY Rx Instructions: TAKE ONE TABLET BY MOUTH DAILY bupropion HCl 75 mg tablet See Rx Instructions .ROUTE .COMPLEX Qty: 60 2RF Dose Instruction: TAKE ONE TABLET BY MOUTH TWICE DAILY Rx Instructions: TAKE ONE TABLET BY MOUTH TWICE DAILY furosemide 40 mg tablet See Rx Instructions .ROUTE .COMPLEX Qty: 60 2RF Dose Instruction: TAKE ONE TABLET BY MOUTH TWICE DAILY NEEDED FOR weight gain Rx Instructions: TAKE ONE TABLET BY MOUTH TWICE DAILY NEEDED FOR weight gain quetiapine 100 mg tablet See Rx Instructions .ROUTE .COMPLEX Qty: 30 2RF Dose Instruction: TAKE ONE TABLET BY MOUTH EVERY NIGHT AT BEDTIME FOR insomnia Rx Instructions: TAKE ONE TABLET BY MOUTH EVERY NIGHT AT BEDTIME FOR insomnia diltiazem HCl 30 mg tablet 30 mg PO BID 30 Days Qty: 60 3RF Aspir-81 81 mg Tablet,Delayed Release (Dr/Ec) 81 mg PO QAM Percocet 10-325 mg Tablet See Rx Instructions .ROUTE .COMPLEX Rx Instructions: take one tab po up to five times a day-(takes @08:00,13:00,17:00,21:00 and if wakes up may take one more tab) Discharge Orders: Discharge ED (Routine); Ordered 11/17/24 Ordered By: Kelvin Nevarez Discharge Diet: Usual diet Discharge Activity: Resume usual activity Patient Instructions: Influenza (ED) Coding Level of Care Code ED 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
[2024-11-16 23:03] VITALS: BP 130/57; PULSE 66; RESP 24; O2SAT 100
[2024-11-16] MEDS: ondansetron 4 MG Tablet PO (23:15)
[2024-11-16 23:47] VITALS: BP 139/68
[2024-11-17] MEDS: azithromycin 250 mg Tablet 500 MG PO (00:34)
[2024-11-17 00:35] VITALS: BP 129/52; PULSE 65; RESP 16; O2SAT 97
[2024-11-17 01:03] VITALS: BP 107/64; PULSE 66; RESP 20; O2SAT 94
== END 2024-11-17 01:04 | disposition home or self-care (01) ==
PROVIDERS: Emergency Provider Emergency Medicine; PCP Internal Medicine
DX: J10.1 Influenza due to other identified influenza virus with other respiratory manifestations (principal); Z79.01 Long term (current) use of anticoagulants; Z11.52 Encounter for screening for COVID-19; Z95.0 Presence of cardiac pacemaker
CPT/HCPCS: 71045; 87637; 93005; 99284; Q0144; Q0162

== ENCOUNTER → 2025-08-06 13:21 | Outpatient (BNVA) | payer MEDICARE, SELFPAY | PROVIDERS: PCP Internal Medicine; Visit Provider Internal Medicine Cardiovascular Disease | DX: Z45.018 Encounter for adjustment and management of other part of cardiac pacemaker (principal) | CPT/HCPCS: 93296 ==